=== PATIENT | female | born 1945 | race Caucasian/White ===

== ENCOUNTER 2017-04-20 13:07 | Emergency (ER) | payer MEDICARE ==
--- NOTE | 2017-04-20 13:14 | ERPHSYRPT ---
- History of Present Illness Time Seen by Provider: 04/20/17 13:14 Source: patient Exam Limitations: no limitations Physician History: 71 y/o diabetic female comes to the ER after smashing her right 1st finger on a garage yesterday. Pt arrives with an open wound and flap at the tip of the finger. Pt does not remember the last tetanus shot. Pt only admits to pain with movement. Occurred: yesterday Method of Injury: direct blow Quality: intermittent Severity of Pain-Max: none Severity of Pain-Current: mild Extremities Pain Location: 2nd finger: right Modifying Factors: Improves With: movement Associated Symptoms: none Allergies/Adverse Reactions: codeine [Codeine] Allergy (Severe, Verified 04/20/17 13:21) Penicillins Allergy (Verified 04/20/17 13:21) propoxyphene HCl [From Darvon] Allergy (Verified 04/20/17 13:21) Home Medications: Gabapentin 1,200 mg PO HS 04/20/17 [History] Insulin Glargine [Lantus Insulin] 50 unit SQ DAILY 04/20/17 [History] Hx Tetanus, Diphtheria Vaccination/Date Given: Yes Hx Influenza Vaccination/Date Given: No Hx Pneumococcal Vaccination/Date Given: No Immunizations Up to Date: No - Review of Systems Constitutional: No Fever, No Chills Eyes: No Symptoms Ears, Nose, & Throat: No Symptoms Respiratory: No Cough, No Dyspnea Cardiac: No Chest Pain, No Edema, No Syncope Abdominal/Gastrointestinal: No Abdominal Pain, No Nausea, No Vomiting, No Diarrhea Genitourinary Symptoms: No Dysuria Musculoskeletal: Arthralgias, Joint Redness, No Back Pain, No Neck Pain Skin: No Rash Neurological: No Dizziness, No Focal Weakness, No Sensory Changes Psychological: No Symptoms Endocrine: No Symptoms All Other Systems: Reviewed and Negative - Past Medical History Pertinent Past Medical History: Yes Neurological History: Peripheral Neuropathy ENT History: No Pertinent History Cardiac History: Angina, Arrhythmia, Coronary Artery Disease, Hypertension Respiratory History: No Pertinent History Endocrine Medical History: Diabetes Type II Musculoskeletal History: Arthritis GI Medical History: No Pertinent History History: No Pertinent History Psycho-Social History: No Pertinent History Female Reproductive Disorders: No Pertinent History Other Medical History: afib - Past Surgical History Past Surgical History: Yes Neuro Surgical History: No Pertinent History Cardiac: Cardiac Catheterization, Cardiac Stent Respiratory: No Pertinent History Gastrointestinal: No Pertinent History, Cholecystectomy Genitourinary: No Pertinent History Musculoskeletal: No Pertinent History Female Surgical History: Tubal Ligation Other Surgical History: skin grafts to upper thighs as a child - Social History Smoking Status: Never smoker Exposure to second hand smoke: No Alcohol Use: None Drug Use: none Patient Lives Alone: No Significant Family History: heart disease, diabetes - Female History Hx Now: No - Nursing Vital Signs Nursing Vital Signs: Initial Vital Signs Temperature 97.7 F 04/20/17 13:17 Pulse Rate 75 04/20/17 13:17 Respiratory Rate 18 04/20/17 13:17 Blood Pressure 168/81 04/20/17 13:17 O2 Sat by Pulse Oximetry 98 04/20/17 13:17 Pain Scale Pain Intensity 3 - Physical Exam General Appearance: alert Eyes, Ears, Nose, Throat Exam: moist mucous membranes Neck Exam: non-tender, supple Cardiovascular/Respiratory Exam: chest non-tender, normal breath sounds, regular rate/rhythm, no respiratory distress Abdominal Exam: non-tender, No guarding Back Exam: normal inspection, No vertebral tenderness Hand Exam: bone tenderness, laceration, limited ROM, No normal ROM Neuro/Tendon Exam: normal sensation, normal motor functions Mental Status Exam: alert, oriented x 3, cooperative Skin Exam: normal color, warm, dry Procedures - Laceration/Wound Repair Right Upper Anterior Medial Proximal Dorsal Finger Wound Location: Right, hand Wound Length (cm): 1 Wound's Depth, Shape: superficial Wound Explored: clean Irrigated: Yes Hibiclens Prep: Yes Anesthesia: 1% Lidocaine Volume Anesthetic (ccs): 4 Wound Debrided: minimal Wound Repaired With: sutures Suture Size/Type: 3-0 Number of Sutures: 4 Layer Closure?: Yes Sterile Dressing Applied?: Yes Splint Applied?: No Sling Applied?: No - Course Nursing assessment & vital signs reviewed: Yes Ordered Tests: Active Orders 24 hr Category Date Time Status Prepare for Sutures STAT Care 04/20/17 13:38 Active Sutures STAT Care 04/20/17 13:40 Active Wound Care STAT Care 04/20/17 13:38 Active FINGER(S) Stat Exams 04/20/17 13:36 Taken Medication Summary Discontinued Medications Generic Name Dose Route Start Last Admin Trade Name Freq PRN Reason Stop Dose Admin Bacitracin Confirm 04/20/17 13:41 Baciguent Packet Administered 04/20/17 13:42 Dose 1 gm .ROUTE .STK-[facility] ONE Diphtheria/Tetanus/Acell Pertussis 0.5 ml 04/20/17 13:37 04/20/17 13:43 Adacel Vial IM 04/20/17 13:38 0.5 ml .ONCE ONE Administration Diphtheria/Tetanus/Acell Pertussis Confirm 04/20/17 13:41 Adacel Vial Administered 04/20/17 13:42 Dose 0.5 ml IM .STK-[facility] ONE Lidocaine HCl 5 ml 04/20/17 13:38 04/20/17 13:43 Xylocaine 1% Hcl 20 Ml Mdv IJ 04/20/17 13:39 5 ml STAT ONE Administration Lidocaine HCl Confirm 04/20/17 13:41 Xylocaine 1% Hcl 20 Ml Mdv Administered 04/20/17 13:42 Dose 5 ml .ROUTE .STK-[facility] ONE - Progress Progress: improved Progress Note: 04/20/17 14:27 The x ray of the finger is within normal limits. See Procedure Note for laceration repair. - Departure Time of Disposition: 14:28 Departure Disposition: Home Clinical Impression: Finger laceration Qualifiers: Encounter type: initial encounter Finger: index finger Damage to nail status: without damage Foreign body presence: without foreign body Laterality: right Qualified Code(s): S61.210A - Laceration without foreign body of right index finger without damage to nail, initial encounter Condition: Stable Critical Care Time: No Referrals: WAQAS BOOTH NP [Primary Care Provider] - Instructions: Laceration Repair -- Finger Additional Instructions: Follow up with your primary care doctor to have the sutures removed in 7 days. Prescriptions: Doxycycline Hyclate 100 mg PO BID #14 tablet
[2017-04-20] MEDS ORDERED: Adacel Vial IM ONE ×2 (13:37→13:41)
[2017-04-20] MEDS ORDERED: XYLOCAINE 1% HCL 20 ML MDV IJ ONE (13:38)
[2017-04-20] MEDS ORDERED: BACIGUENT PACKET ONE ×2 (13:41→14:44)
[2017-04-20] MEDS ORDERED: XYLOCAINE 1% HCL 20 ML MDV ONE (13:41)
[2017-04-20] MEDS ORDERED: BACIGUENT PACKET TP ONE (14:35)
[2017-04-20 14:51] VITALS: BP 137/87; PULSE 76; O2SAT 100
--- NOTE | 2017-04-20 15:21 | XRAY ---
Indication: Pain following injury. Comparison: None 3 views of the right second finger demonstrates distal laceration. No other bony, articular, or soft tissue abnormalities.
== END 2017-04-20 14:50 | disposition home or self-care (01) ==
LOC: ED 13:07
PROC: 0HQFXZZ Repair Right Hand Skin, External Approach (ICD-10-PCS; principal; 2017-04-20)
DX: S61.210A Laceration without foreign body of right index finger without damage to nail, initial encounter (principal); W22.8XXA Striking against or struck by other objects, initial encounter
CPT/HCPCS: 12001; 73140; 90471; 90715; 99283; 99284; A9270-GY

== ENCOUNTER 2017-05-30 21:11 | Emergency (ER) | payer MEDICARE ==
--- NOTE | 2017-05-30 22:05 | ERPHSYRPT ---
- History of Present Illness Time Seen by Provider: 05/30/17 21:53 Historian: patient Exam Limitations: no limitations Patient Subjective Stated Complaint: pt states she had diarrhea beginning . states since then she has been vomiting and experiencing abdominal pain in the left lower abdomen. states she also has a headache with pain primarly in the temporal region. pt also reports chills, states she is not able to get warm. Triage Nursing Assessment: pt is AOx3, pupils perrl, transferred to room per ems , resps are easy and non labored, lung sounds are clear and equal throughout all alcocer, radial pulses are strong and equal, skin appears flushed, oral mucosa is dry, bowel sounds are present x4 and hyperactive. 1+ pitting edema noted to bilat lower extremities. pain to the LLQ that is non radiating. pt is shivering during triage. Physician History: The patient is a 71-year-old female with her daughter complaining of intermittent abdominal pain, nausea, vomiting, and diarrhea for one month. She was seen at [facility] the ER this morning with the same complaint. She states they did blood work and a CT scan of the abdomen. She states everything was normal. She saw her local doctor last week who told her the problem was that her blood sugar was too high. He gave her new medicine for her diabetes. She says her new diabetic medicine is not working. She will have 3 days in a row without any abdominal pain, vomiting, or diarrhea. She has a past medical history of diverticulitis, pyelonephritis, coronary artery disease, diabetes, A. fib, TIA, cholecystectomy, tubal ligation, and abdominal skin graft. Timing/Duration: other (1 month) Activities at Onset: none Quality: sharpness Abdominal Pain Onset Location: generalized abdomen Pain Radiation: no radiation Severity of Pain-Max: moderate Severity of Pain-Current: moderate Modifying Factors: Improves With: vomiting Associated Symptoms: diarrhea, nausea, vomiting Previous symptoms: same symptoms as today, recently seen, recently treated Allergies/Adverse Reactions: codeine [Codeine] Allergy (Severe, Verified 05/30/17 21:29) Penicillins Allergy (Verified 05/30/17 21:29) propoxyphene HCl [From Darvon] Allergy (Verified 05/30/17 21:29) Home Medications: Gabapentin 1,200 mg PO HS 04/20/17 [History] Insulin Glargine [Lantus Insulin] 50 unit SQ DAILY 04/20/17 [History] Hx Tetanus, Diphtheria Vaccination/Date Given: Yes Hx Influenza Vaccination/Date Given: No Hx Pneumococcal Vaccination/Date Given: No Immunizations Up to Date: Yes - Review of Systems Constitutional: No Fever, No Chills Eyes: No Symptoms Ears, Nose, & Throat: No Symptoms Respiratory: No Cough, No Dyspnea Cardiac: No Chest Pain, No Edema, No Syncope Abdominal/Gastrointestinal: Abdominal Pain, Nausea, Vomiting, Diarrhea Genitourinary Symptoms: No Dysuria Musculoskeletal: No Back Pain, No Neck Pain Skin: No Rash Neurological: No Dizziness, No Focal Weakness, No Sensory Changes Psychological: No Symptoms Endocrine: No Symptoms Hematologic/Lymphatic: No Symptoms Immunological/Allergic: No Symptoms All Other Systems: Reviewed and Negative - Past Medical History Pertinent Past Medical History: Yes Neurological History: Peripheral Neuropathy ENT History: No Pertinent History Cardiac History: Angina, Arrhythmia, Coronary Artery Disease, Hypertension Respiratory History: No Pertinent History Endocrine Medical History: Diabetes Type II Musculoskeletal History: Arthritis GI Medical History: No Pertinent History History: No Pertinent History Psycho-Social History: No Pertinent History Female Reproductive Disorders: No Pertinent History Other Medical History: afib - Past Surgical History Past Surgical History: Yes Neuro Surgical History: No Pertinent History Cardiac: Cardiac Catheterization, Cardiac Stent Respiratory: No Pertinent History Gastrointestinal: No Pertinent History, Cholecystectomy Genitourinary: No Pertinent History Musculoskeletal: No Pertinent History Female Surgical History: Tubal Ligation Other Surgical History: skin grafts to upper thighs as a child - Social History Smoking Status: Never smoker Exposure to second hand smoke: No Alcohol Use: None Drug Use: none Patient Lives Alone: No Significant Family History: heart disease, diabetes - Female History Hx Now: No - Nursing Vital Signs Nursing Vital Signs: Initial Vital Signs Temperature 100.3 F 05/30/17 21:17 Pulse Rate 75 05/30/17 21:17 Respiratory Rate 20 05/30/17 21:17 Blood Pressure 209/83 05/30/17 21:17 O2 Sat by Pulse Oximetry 98 05/30/17 21:17 Pain Scale Pain Intensity 0 - Physical Exam General Appearance: anxiety Eye Exam: PERRL/EOMI, eyes nml inspection Ears, Nose, Throat Exam: normal ENT inspection Neck Exam: normal inspection, non-tender, supple, full range of motion Respiratory Exam: normal breath sounds, lungs clear, No respiratory distress Cardiovascular Exam: regular rate/rhythm, normal heart sounds Gastrointestinal/Abdomen Exam: other (hyperactive) Pelvic Exam: not done Rectal Exam: not done Back Exam: normal inspection, normal range of motion, No CVA tenderness, No vertebral tenderness Extremity Exam: normal inspection, normal range of motion, pelvis stable Neurologic Exam: alert, oriented x 3, cooperative, normal mood/affect, nml cerebellar function, sensation nml, No motor deficits Skin Exam: normal color, warm, dry SpO2 Interpretation: normal SpO2: 98 Oxygen Delivery: Room Air - Radiology Exams Abdomen X-ray Interpretation: Interpreted by me, Negative (neg single view chest. neg, nonobstructed abd.) Ordered Tests: Active Orders 24 hr Category Date Time Status IV Insertion STAT Care 05/30/17 22:14 Active Rectal Temperature STAT Care 05/30/17 23:17 Active cath [Cath for Specimen-Straight] STAT Care 05/30/17 23:14 Active OBSTR/ACUTE ABDOMEN SERIES Stat Exams 05/30/17 22:15 Taken CBC W DIFF Stat Lab 05/30/17 22:15 Completed CMP Stat Lab 05/30/17 22:15 Completed CULTURE,URINE Stat Lab 05/30/17 22:40 Received LIPASE Stat Lab 05/30/17 22:15 Completed Lactic Acid Stat Lab 05/30/17 Completed Manual Differential NC Stat Lab 05/30/17 22:15 Completed TROPONIN Q3H Lab 05/30/17 22:15 Completed TROPONIN Q3H Lab 05/31/17 01:15 Ordered TROPONIN Q3H Lab 05/31/17 04:15 Ordered TROPONIN Q3H Lab 05/31/17 07:15 Ordered TROPONIN Q3H Lab 05/31/17 10:15 Ordered UA W/ MICROSCOPIC Stat Lab 05/30/17 22:40 Completed Urine Triage Profile Stat Lab 05/30/17 22:40 Completed Medication Summary Discontinued Medications Generic Name Dose Route Start Last Admin Trade Name Freq PRN Reason Stop Dose Admin Famotidine 20 mg 05/30/17 22:14 05/30/17 22:30 Pepcid 20 Mg Vial IV 05/30/17 22:15 20 mg STAT ONE Administration Famotidine Confirm 05/30/17 22:27 Pepcid 20 Mg Vial Administered 05/30/17 22:28 Dose 20 mg IV .STK-[facility] ONE Sodium Chloride 500 mls @ 999 mls/hr 05/30/17 22:14 05/30/17 22:28 Sodium Chloride 0.9% 1000 Ml IV 05/30/17 22:44 999 mls/hr .Q31M STA Administration Sodium Chloride Confirm 05/30/17 22:27 Sodium Chloride 0.9% 1000 Ml Administered 05/30/17 22:28 Dose 1,000 mls @ ud .ROUTE .ST-[facility] ONE Insulin Human Regular 10 unit 05/30/17 22:17 05/30/17 22:54 Novolin R SQ 05/30/17 22:18 Not Given STAT ONE Insulin Human Regular Confirm 05/30/17 22:27 Novolin R Administered 05/30/17 22:28 Dose 10 unit .ROUTE .STK-[facility] ONE Insulin Human Regular Confirm 05/30/17 22:51 Novolin R Administered 05/30/17 22:52 Dose 10 unit .ROUTE .[facility] ONE Insulin Human Regular 10 unit 05/30/17 22:52 05/30/17 22:56 Novolin R IV 05/30/17 22:53 10 unit STAT ONE Administration Ketorolac Tromethamine 30 mg 05/30/17 22:14 05/30/17 22:31 Toradol 30 Mg Injection IV 05/30/17 22:15 30 mg STAT ONE Administration Ketorolac Tromethamine Confirm 05/30/17 22:23 Toradol 30 Mg Injection Administered 05/30/17 22:24 Dose 30 mg .ROUTE .[facility] ONE Ondansetron HCl 4 mg 05/30/17 22:14 05/30/17 22:30 Zofran 4 Mg/2 Ml Vial IV 05/30/17 22:15 4 mg STAT ONE Administration Ondansetron HCl Confirm 05/30/17 22:23 Zofran 4 Mg/2 Ml Vial Administered 05/30/17 22:24 Dose 4 mg .ROUTE .[facility] ONE Lab/Rad Data: Laboratory Result Diagrams 05/30/17 22:15 05/30/17 22:15 Laboratory Results 05/30/17 05/30/17 05/30/17 Range/Units Unknown 23:00 22:40 WBC (4.0-10.5) K/mm3 RBC (4.1-5.4) M/mm3 Hgb (12.0-16.0) gm/dl Hct (35-47) % MCV (78-100) fl MCH (26-32) pg MCHC (32-36) g/dl RDW (11.5-14.0) % Plt Count (150-450) K/mm3 MPV (6-9.5) fl Segmented Neutrophils (36.0-66.0) % Lymphocytes (Manual) (24-44) % Monocytes (Manual) (0.0-12.0) % Eosinophils (Manual) (0.00-3.0) % Differential Comment Platelet Estimate (NORMAL) Anisocytosis Sodium (136-145) mEq/L Potassium (3.5-5.1) mEq/L Chloride (98-107) mEq/L Carbon Dioxide (21-32) mEq/L Anion Gap (5-15) MEQ/L BUN (9-20) mg/dL Creatinine (0.55-1.30) mg/dl Estimated GFR ML/MIN Glucose (70-110) MG/DL Lactic Acid 1.5 (0.4-2.0) Calcium (8.5-10.1) mg/dL Total Bilirubin (0.2-1.0) mg/dL AST (15-37) U/L ALT (12-78) U/L Alkaline Phosphatase (46-116) U/L Troponin I (0.000-0.056) ng/ml Serum Total Protein (6.4-8.2) gm/dL Albumin (3.4-5.0) g/dL Lipase (73-393) U/L Ur Collection Type Urine Color (YELLOW) Urine Appearance (CLEAR) Urine pH (5-6) Ur Specific [place] (1.005-1.025) Urine Protein (Negative) Urine Ketones (NEGATIVE) Urine Blood (0-5) Keny/ul Urine Nitrite (NEGATIVE) Urine Bilirubin (NEGATIVE) Urine Urobilinogen (0-1) mg/dL Ur Leukocyte Esterase (NEGATIVE) Urine Microscopic RBC (0-2) /HPF Urine Microscopic WBC (0-5) /HPF Ur Epithelial Cells (FEW) /HPF Urine Bacteria (NEGATIVE) /HPF Hyaline Casts (0-2) /LPF Granular Casts (NEGATIVE) /LPF Urine Glucose (NEGATIVE) mg/dL Urine Opiates Level NEG. (NEGATIVE) Ur Methadone NEG. (NEGATIVE) Urine Barbiturates NEG. (NEGATIVE) Ur Phencyclidine (PCP) NEG. (NEGATIVE) Urine Amphetamine NEG. (NEGATIVE) U Benzodiazepine Level NEG. (NEGATIVE) Urine Cocaine NEG. (NEGATIVE) Urine Marijuana (THC) NEG. (NEGATIVE) Influenza Type A Ag NEGATIVE (NEGATIVE) Influenza Type B Ag NEGATIVE (NEGATIVE) RSV (PCR) NEGATIVE (Negative) Specimen Received 05/30/17 05/30/17 05/30/17 Range/Units 22:40 22:15 22:15 WBC (4.0-10.5) K/mm3 RBC (4.1-5.4) M/mm3 Hgb (12.0-16.0) gm/dl Hct (35-47) % MCV (78-100) fl MCH (26-32) pg MCHC (32-36) g/dl RDW (11.5-14.0) % Plt Count (150-450) K/mm3 MPV (6-9.5) fl Segmented Neutrophils (36.0-66.0) % Lymphocytes (Manual) (24-44) % Monocytes (Manual) (0.0-12.0) % Eosinophils (Manual) (0.00-3.0) % Differential Comment Platelet Estimate (NORMAL) Anisocytosis Sodium 139 (136-145) mEq/L Potassium 4.3 (3.5-5.1) mEq/L Chloride 107 (98-107) mEq/L Carbon Dioxide 24.8 (21-32) mEq/L Anion Gap 11.6 (5-15) MEQ/L BUN 17 (9-20) mg/dL Creatinine 1.21 (0.55-1.30) mg/dl Estimated GFR 47 ML/MIN Glucose 341 H (70-110) MG/DL Lactic Acid (0.4-2.0) Calcium 8.3 L (8.5-10.1) mg/dL Total Bilirubin 0.20 (0.2-1.0) mg/dL AST 13 L (15-37) U/L ALT 16 (12-78) U/L Alkaline Phosphatase 72 (46-116) U/L Troponin I < 0.017 (0.000-0.056) ng/ml Serum Total Protein 5.0 L (6.4-8.2) gm/dL Albumin 1.8 L (3.4-5.0) g/dL Lipase 77 (73-393) U/L Ur Collection Type CATH Urine Color YELLOW (YELLOW) Urine Appearance CLEAR (CLEAR) Urine pH 5.0 (5-6) Ur Specific [place] 1.015 (1.005-1.025) Urine Protein 300 (Negative) Urine Ketones NEGATIVE (NEGATIVE) Urine Blood 250 (0-5) Keny/ul Urine Nitrite NEGATIVE (NEGATIVE) Urine Bilirubin NEGATIVE (NEGATIVE) Urine Urobilinogen NORMAL (0-1) mg/dL Ur Leukocyte Esterase NEGATIVE (NEGATIVE) Urine Microscopic RBC 5-10 (0-2) /HPF Urine Microscopic WBC 2-5 (0-5) /HPF Ur Epithelial Cells FEW (FEW) /HPF Urine Bacteria FEW (NEGATIVE) /HPF Hyaline Casts 2-5 (0-2) /LPF Granular Casts 2-5 (NEGATIVE) /LPF Urine Glucose 1000 (NEGATIVE) mg/dL Urine Opiates Level (NEGATIVE) Ur Methadone (NEGATIVE) Urine Barbiturates (NEGATIVE) Ur Phencyclidine (PCP) (NEGATIVE) Urine Amphetamine (NEGATIVE) U Benzodiazepine Level (NEGATIVE) Urine Cocaine (NEGATIVE) Urine Marijuana (THC) (NEGATIVE) Influenza Type A Ag (NEGATIVE) Influenza Type B Ag (NEGATIVE) RSV (PCR) (Negative) Specimen Received 05/30/17 2240 05/30/17 Range/Units 22:15 WBC 8.5 (4.0-10.5) K/mm3 RBC 5.03 (4.1-5.4) M/mm3 Hgb 12.2 (12.0-16.0) gm/dl Hct 37.6 (35-47) % MCV 74.8 L (78-100) fl MCH 24.3 L (26-32) pg MCHC 32.4 (32-36) g/dl RDW 14.9 H (11.5-14.0) % Plt Count 102 L (150-450) K/mm3 MPV 13.9 H (6-9.5) fl Segmented Neutrophils 88 H (36.0-66.0) % Lymphocytes (Manual) 6 L (24-44) % Monocytes (Manual) 5 (0.0-12.0) % Eosinophils (Manual) 1 (0.00-3.0) % Differential Comment ABNORMAL Platelet Estimate DECREASED (NORMAL) Anisocytosis 1+ Sodium (136-145) mEq/L Potassium (3.5-5.1) mEq/L Chloride (98-107) mEq/L Carbon Dioxide (21-32) mEq/L Anion Gap (5-15) MEQ/L BUN (9-20) mg/dL Creatinine (0.55-1.30) mg/dl Estimated GFR ML/MIN Glucose (70-110) MG/DL Lactic Acid (0.4-2.0) Calcium (8.5-10.1) mg/dL Total Bilirubin (0.2-1.0) mg/dL AST (15-37) U/L ALT (12-78) U/L Alkaline Phosphatase (46-116) U/L Troponin I (0.000-0.056) ng/ml Serum Total Protein (6.4-8.2) gm/dL Albumin (3.4-5.0) g/dL Lipase (73-393) U/L Ur Collection Type Urine Color (YELLOW) Urine Appearance (CLEAR) Urine pH (5-6) Ur Specific [place] (1.005-1.025) Urine Protein (Negative) Urine Ketones (NEGATIVE) Urine Blood (0-5) Keny/ul Urine Nitrite (NEGATIVE) Urine Bilirubin (NEGATIVE) Urine Urobilinogen (0-1) mg/dL Ur Leukocyte Esterase (NEGATIVE) Urine Microscopic RBC (0-2) /HPF Urine Microscopic WBC (0-5) /HPF Ur Epithelial Cells (FEW) /HPF Urine Bacteria (NEGATIVE) /HPF Hyaline Casts (0-2) /LPF Granular Casts (NEGATIVE) /LPF Urine Glucose (NEGATIVE) mg/dL Urine Opiates Level (NEGATIVE) Ur Methadone (NEGATIVE) Urine Barbiturates (NEGATIVE) Ur Phencyclidine (PCP) (NEGATIVE) Urine Amphetamine (NEGATIVE) U Benzodiazepine Level (NEGATIVE) Urine Cocaine (NEGATIVE) Urine Marijuana (THC) (NEGATIVE) Influenza Type A Ag (NEGATIVE) Influenza Type B Ag (NEGATIVE) RSV (PCR) (Negative) Specimen Received - Progress Progress: improved Progress Note: 05/30/17 22:18 I reviewed the records from her visit to [facility] emergency room that occurred this morning. The CT scan of the abdomen and pelvis showed splenomegaly but no acute abnormalities. The indication for her abd/pelvis CT was for abd pain for 4 months. Her white count was normal at 8.0 her hemoglobin was 12.7. Her glucose is 385 for which she was given 10 units of regular insulin. Her lipase was normal. A urinalysis was ordered but not performed. 05/31/17 00:15 Counseled pt/family regarding: lab results, diagnosis, need for follow-up, rad results - Departure Time of Disposition: 00:24 Departure Disposition: Home Clinical Impression: Abdominal pain, Elevated random blood glucose level Condition: Stable Critical Care Time: No Referrals: WAQAS BOOTH NP [Primary Care Provider] - Additional Instructions: You have have abdominal pain and elevated blood glucose levels. You were given famotidine 20 mg, Toradol 30 mg, and fluids by IV. You were also given regular insulin 10 units by IV. Your blood glucose was 341 before the fluids and insulin. After the medication your blood glucose was 131. Follow-up in the morning with your primary care physician. As we had discussed, please have a routine colonoscopy.
[2017-05-30] MEDS ORDERED: Pepcid 20 MG VIAL IV ONE ×2 (22:14→22:27)
[2017-05-30] MEDS ORDERED: TORAdol 30 mg Injection IV ONE (22:14)
[2017-05-30] MEDS ORDERED: Zofran 4 MG/2 ML VIAL IV ONE (22:14)
[2017-05-30 22:21] LABS: Mean Cell Volume 74.8 fl (78-100); Mean Corpuscular Hemoglobin 24.3 pg (26-32); Mean Platelet Volume 13.9 fl (6-9.5); Platelet Count 102 K/mm3 (150-450); Red Blood Count 5.03 M/mm3 (4.1-5.4); Red Cell Distribution Width 14.9 % (11.5-14.0); White Blood Count 8.5 K/mm3 (4.0-10.5)
[2017-05-30] MEDS ORDERED: TORAdol 30 mg Injection ONE (22:23)
[2017-05-30] MEDS ORDERED: Zofran 4 MG/2 ML VIAL ONE (22:23)
[2017-05-30] MEDS: NovoLIN R SQ ONE ×2 (22:26→22:54)
[2017-05-30] MEDS ORDERED: NovoLIN R ONE ×2 (22:27→22:51)
[2017-05-30] MEDS ORDERED: Sodium Chloride 0.9% 1000 ML 1,000 ML ONE (22:27)
[2017-05-30 22:39] LABS: ALBUMIN 1.8 g/dL (3.4-5.0); ANION GAP 11.6 MEQ/L (5-15); BILIRUBIN,TOTAL 0.2 mg/dL (0.2-1.0); Carbon Dioxide 24.8 mEq/L (21-32); Potassium 4.3 mEq/L (3.5-5.1)
[2017-05-30] MEDS ORDERED: NovoLIN R IV ONE (22:52)
[2017-05-30 23:08] LABS: Bilirubin NEGATIVE (NEGATIVE); Blood 250 Ery/ul (0-5); COMPLETE URINE MICROSCOPIC? YES; Collection Type CATH; Glucose 1000 mg/dL (NEGATIVE); Leukocyte Esterase NEGATIVE (NEGATIVE)
[2017-05-30 23:09] LABS: ADD URINE CULTURE? YES (NO); Bacteria FEW /HPF (NEGATIVE); Epithelial Cells FEW /HPF (FEW)
[2017-05-31 00:11] VITALS: O2SAT 98
[2017-05-31 00:12] LABS: Eosinophil 1 % (0.00-3.0); Total Cells Counted 100
[2017-05-31 00:13] LABS: ANISOCYTOSIS 1+; Platelet Estimate DECREASED (NORMAL)
[2017-05-31 00:37] VITALS: BP 179/85; PULSE 68
--- NOTE | 2017-05-31 08:48 | XRAY ---
Indication: Abdomen pain, nausea, vomiting, and diarrhea. Comparison: Portable chest March 12, 2016. 2 views of the abdomen nonacute and nonobstructed with mild scattered colonic fecal debris throughout, scattered vascular calcifications, and previous cholecystectomy. Remaining solid organs unremarkable. Osseous structures intact with moderate degenerative changes throughout the spine and dextroscoliosis. Single PA chest again demonstrates normal heart and lungs. Bony thorax intact with stable degenerative changes. Impression: Nonacute abdomen with chronic features. Stable nonacute 1 view chest.
== END 2017-05-31 00:37 | disposition home or self-care (01) ==
LOC: ED 21:11
DX: R10.9 Unspecified abdominal pain (principal); R73.9 Hyperglycemia, unspecified; R11.2 Nausea with vomiting, unspecified; R19.7 Diarrhea, unspecified; Z79.4 Long term (current) use of insulin; E11.9 Type 2 diabetes mellitus without complications
CPT/HCPCS: 96374 ×2; 99284; 82962; 96360; 96375; 81000; 36415; 83690; 80307; 85025; 80053; 84484; 87086; 87631; 74022; 83605; P9612; J1885; J2405; A9270-GY

== ENCOUNTER 2017-06-10 13:36 | Inpatient (IN) | payer MEDICARE ==
[2017-06-10] MEDS ORDERED: FEVERALL 650 MG PR PRN (20:17)
[2017-06-10] MEDS ORDERED: Sodium Chloride 0.9% 1000 ML 1,000 ML IV STA (20:17)
[2017-06-10] MEDS: TYLENOL 325 MG PO PRN (20:58)
[2017-06-10] MEDS: Zofran 4 MG/2 ML VIAL IV PRN (20:58)
[2017-06-10 21:58] LABS: Mean Corpuscular Hemoglobin 24.2 pg (26-32); Mean Platelet Volume 11.9 fl (6-9.5); Platelet Count 151 K/mm3 (150-450); Red Blood Count 4.58 M/mm3 (4.1-5.4); Red Cell Distribution Width 14.6 % (11.5-14.0); White Blood Count 8.6 K/mm3 (4.0-10.5)
[2017-06-10] MEDS ORDERED: MORPHINE SULFATE 2 MG INJ IV PRN (22:08)
[2017-06-10] MEDS: Sodium Chloride 0.9% 1000 ML 1,000 ML IV SCH (22:12)
[2017-06-10] MEDS ORDERED: Bystolic 5 MG ONE (22:18)
[2017-06-10] MEDS: Lotensin 10 MG PO SCH (22:20)
[2017-06-10] MEDS: Bystolic 5 MG PO SCH ×2 (22:21)
[2017-06-10 22:23] LABS: Bacteria RARE /HPF (NEGATIVE); Bilirubin NEGATIVE (NEGATIVE); Blood 50 Ery/ul (0-5); COMPLETE URINE MICROSCOPIC? YES; Collection Type CLEAN CATCH; Epithelial Cells RARE /HPF (FEW); Glucose 1000 mg/dL (NEGATIVE); Leukocyte Esterase NEGATIVE (NEGATIVE); Mucus MANY /HPF (NEGATIVE)
[2017-06-10 22:33] LABS: ALBUMIN 1.5 g/dL (3.4-5.0); ANION GAP 8.7 MEQ/L (5-15); BILIRUBIN,TOTAL 0.2 mg/dL (0.2-1.0); Carbon Dioxide 26.9 mEq/L (21-32); Potassium 3.2 mEq/L (3.5-5.1); Total Protein 4.7 gm/dL (6.4-8.2)
[2017-06-10] MEDS: NovoLOG Insulin SQ PRN (22:43)
[2017-06-10 23:51] LABS: Eosinophil 1 % (0.00-3.0); Platelet Estimate NORMAL (NORMAL); Total Cells Counted 100
[2017-06-11] MEDS ORDERED: Catapres 0.1 MG PO ONE (01:48)
[2017-06-11] MEDS: NovoLOG Insulin SQ PRN ×3 (07:46→21:38)
[2017-06-11] MEDS: Catapres 0.1 MG PO PRN ×2 (07:46→17:21)
--- NOTE | 2017-06-11 08:32 | XRAY ---
Indication: Weakness. Comparison: May 30, 2017. PA/lateral chest demonstrates new blunting of both costophrenic angles favoring tiny effusions. Remaining lungs clear. Heart is not enlarged. Vascularity normal. Bony thorax intact again with mild degenerative changes. Impression: New tiny bibasilar effusions. Negative for acute pneumonic process or CHF. Comment: Preliminary interpretation was made by C. Effusions not reported and not a critical finding.
[2017-06-11] MEDS ORDERED: ULTRAM 50 MG PO PRN (09:38)
[2017-06-11] MEDS: Protonix 40MG Tablet PO SCH ×2 (09:52→21:33)
[2017-06-11] MEDS: Bystolic 5 MG PO SCH (09:52)
[2017-06-11] MEDS: Lotensin 10 MG PO SCH (09:52)
[2017-06-11] MEDS: Lantus Insulin SQ SCH (09:53)
[2017-06-11] MEDS: ENOXAPARIN SODIUM SQ SCH (09:53)
[2017-06-11] MEDS ORDERED: NON-FORMULARY ITEM (Omeprazole [Prilosec] 20 MG) PO SCH (10:00)
--- NOTE | 2017-06-11 10:39 | XRAY ---
Indication: Poor renal output. Renal insufficiency. Two-dimensional renal sonogram performed. Comparison: None Both kidneys normal in reniform shape with normal color perfusion. Right kidney measures 11.3 x 4.4 x 5.4 cm and left measures 11.7 x 5.7 x 5.4 cm. No renal mass, hydronephrosis, or perinephric fluid. Cortical medullary differentiation preserved without cortical thinning. Images of the urinary bladder unremarkable with a volume of 254 cc. Impression: Negative renal sonogram.
--- NOTE | 2017-06-11 12:22 | XRAY ---
Indication: Abdominal pain. Multiple contiguous axial images obtained through the abdomen and pelvis without contrast as ordered. Comparison: Contrast exam May 04, 2015. Lung bases demonstrate new small bibasilar dependent effusions with compressive atelectasis. Heart is not enlarged. There is now mild anasarca. Noncontrasted stomach and bowel loops appear nonobstructed. Normal appendix. Again scattered colonic diverticulosis without diverticulitis. There is now tiny bilateral colic gutter and pelvic free fluid. No free air. Again previous cholecystectomy. Remaining liver, pancreas, spleen, adrenal glands, kidneys, ureters, bladder, and uterus appear unremarkable for noncontrast exam. There remains mild aortoiliac calcifications without AAA. Osseous structures intact again with mild degenerative changes throughout the spine. Impression: 1. New small bibasilar effusions/atelectasis without cardiomegaly. 2. New tiny indeterminate abdominal/pelvic free fluid and mild anasarca. 3. Stable colonic diverticulosis. 4. Remaining CT abdomen/pelvis without contrast exam is negative. CTDI 17.07
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
--- NOTE | 2017-06-11 12:27 | PCM.NOTE ---
Date and Time: 06/11/17 1226 Subjective Assessment: c/o abdominal pain, BP is running high - Review of Systems Constitutional: No Fever, No Chills Eyes: No Symptoms Ears, Nose, & Throat: No Symptoms Respiratory: No Cough, No Short Of Breath Cardiac: No Chest Pain, No Edema, No Syncope Abdominal/Gastrointestinal: Abdominal Pain, No Nausea, No Vomiting, No Diarrhea Genitourinary Symptoms: No Dysuria Musculoskeletal: Back Pain, No Neck Pain Skin: No Rash Neurological: No Dizziness, No Focal Weakness, No Sensory Changes Psychological: No Symptoms Endocrine: No Symptoms Hematologic/Lymphatic: No Symptoms Immunological/Allergic: No Symptoms Objective Exam General Appearance: no apparent distress, alert Neurologic Exam: alert, oriented x 3, cooperative, normal mood/affect, nml cerebellar function, sensation nml, No motor deficits Skin Exam: normal color, warm, dry Eye Exam: PERRL, EOMI, eyes nml inspection Ears, Nose, Throat Exam: normal ENT inspection, pharynx normal, moist mucous membranes Neck Exam: normal inspection, non-tender, supple, full range of motion Respiratory Exam: normal breath sounds, lungs clear, No respiratory distress Cardiovascular Exam: regular rate/rhythm, normal heart sounds Gastrointestinal/Abdomen Exam: soft, No tenderness, No mass Extremity Exam: normal inspection, normal range of motion Back Exam: normal inspection, normal range of motion, No CVA tenderness, No vertebral tenderness Pelvic Exam: deferred Rectal Exam: deferred OBJECTIVE DATA Vital Signs: Vital Signs - 24 hr Temp Pulse Resp BP Pulse Ox 06/11/17 09:33 48 L 158/70 06/11/17 07:22 97.9 F 52 L 18 190/76 95 06/11/17 04:19 94 L 06/11/17 04:10 98.0 F 51 L 14 162/76 94 L 06/10/17 23:45 97.6 F 65 18 222/90 95 06/10/17 20:09 98.2 F 75 20 222/100 98 06/10/17 20:00 98.2 F 75 20 222/100 98 Oxygen-Last 24 hours O2 Percentage 2 Liters = 28% O2 Percentage 2 Liters = 28% Oxygen Flowrate (L/min)-RT 2 Pain Assessment - Last Documented Pain Intensity 0 Pain Scale Used 0-10 Pain Scale Intake and Output: Intake & Output 0906/10/17 06/11/17 06/12/17 11:59 11:59 11:59 11:59 Intake Total 2058 Output Total 300 Balance 1758 Weight 76.657 kg Lab Results: Accuchecks Date 06/11/1706/11/1706/10/17 Time 11:48 Time 07:30 Time 21:30 Accucheck Value: 175 Accucheck Value: 277 Accucheck Value: 283 Lab Results-Last 24 Hours 06/10/17 06/10/17 06/10/17 Range/Units 21:40 21:50 21:50 WBC 8.6 (4.0-10.5) K/mm3 RBC 4.58 (4.1-5.4) M/mm3 Hgb 11.1 L (12.0-16.0) gm/dl Hct 33.9 L (35-47) % MCV 74.0 L (78-100) fl MCH 24.2 L (26-32) pg MCHC 32.7 (32-36) g/dl RDW 14.6 H (11.5-14.0) % Plt Count 151 (150-450) K/mm3 MPV 11.9 H (6-9.5) fl Segmented Neutrophils 72 H (36.0-66.0) % Lymphocytes (Manual) 20 L (24-44) % Monocytes (Manual) 7 (0.0-12.0) % Eosinophils (Manual) 1 (0.00-3.0) % Differential Comment NORMAL Platelet Estimate NORMAL (NORMAL) Sodium 142 (136-145) mEq/L Potassium 3.2 L (3.5-5.1) mEq/L Chloride 110 H (98-107) mEq/L Carbon Dioxide 26.9 (21-32) mEq/L Anion Gap 8.7 (5-15) MEQ/L BUN 11 (9-20) mg/dL Creatinine 1.22 (0.55-1.30) mg/dl Estimated GFR 46 ML/MIN Glucose 307 H (70-110) MG/DL Calcium 8.1 L (8.5-10.1) mg/dL Total Bilirubin 0.20 (0.2-1.0) mg/dL AST 17 (15-37) U/L ALT 9 L (12-78) U/L Alkaline Phosphatase 68 (46-116) U/L NT-Pro-B Natriuret Pep 2194 H (0-125) pg/ml Serum Total Protein 4.7 L (6.4-8.2) gm/dL Albumin 1.5 L (3.4-5.0) g/dL Ur Collection Type CLEAN CATCH Urine Color YELLOW (YELLOW) Urine Appearance CLEAR (CLEAR) Urine pH 6.0 (5-6) Ur Specific [place] 410 (1.005-1.025) Urine Protein 500 (Negative) Urine Ketones NEGATIVE (NEGATIVE) Urine Blood 50 (0-5) Keny/ul Urine Nitrite NEGATIVE (NEGATIVE) Urine Bilirubin NEGATIVE (NEGATIVE) Urine Urobilinogen NORMAL (0-1) mg/dL Ur Leukocyte Esterase NEGATIVE (NEGATIVE) Urine Microscopic RBC 0-2 (0-2) /HPF Ur Epithelial Cells RARE (FEW) /HPF Urine Bacteria RARE (NEGATIVE) /HPF Urine Mucus MANY (NEGATIVE) /HPF Urine Glucose 1000 (NEGATIVE) mg/dL Specimen Received 06/10/17:2200 Radiology Exams: Radiology Procedures Category Date Time Status ABDOMEN AND PELVIS W/0 CONTRAS [CT] Urgent Exams 06/11/17 09:06 Completed CHEST 2 VIEWS (PA AND LAT) Stat Exams 06/10/17 Completed KIDNEY [US] Urgent Exams 06/11/17 Completed ABDOMEN AND PELVIS W/0 CONTRAS [CTImpression: 1. New small bibasilar effusions/atelectasis without cardiomegaly. 2. New tiny indeterminate abdominal/pelvic free fluid and mild anasarca. 3. Stable colonic diverticulosis. 4. Remaining CT abdomen/pelvis without contrast exam is negative Procedures: [id number] US/KIDNEY Indication: Poor renal output. Renal insufficiency. Two-dimensional renal sonogram performed. Comparison: None Both kidneys normal in reniform shape with normal color perfusion. Right kidney measures 11.3 x 4.4 x 5.4 cm and left measures 11.7 x 5.7 x 5.4 cm. No renal mass, hydronephrosis, or perinephric fluid. Cortical medullary differentiation preserved without cortical thinning. Images of the urinary bladder unremarkable with a volume of 254 cc. Impression: Negative renal sonogram. Multi-Disciplinary Progress Notes: Multi-Disciplinary Progress Notes 06/11/17 09:43 Case Management Note by Caroline Monzon ATTEMPTED TO REACH ADRYAN HARP, PT'S DAUGHTER, AND APPOINTED LAY CAREGIVER. [phone]. [facility] VOICEMAIL MESSAGE TO CALL THIS ANALYTICAL MANAGER TO DISCUSS DISCHARGE PLANNING. Initialized on 06/11/17 09:43 - END OF NOTE Assessment/Plan (1) Dehydration Current Visit: Yes Status: Acute Code(s): E86.0 - DEHYDRATION (2) Nausea & vomiting Current Visit: Yes Status: Acute Qualifiers: Vomiting type: unspecified Code(s): R11.2 - NAUSEA WITH VOMITING, UNSPECIFIED (3) Uncontrolled hypertension Current Visit: Yes Status: Acute Code(s): I10 - ESSENTIAL (PRIMARY) HYPERTENSION (4) Renal insufficiency Current Visit: Yes Status: Acute (5) Uncontrolled diabetes mellitus Current Visit: Yes Status: Acute Qualifiers: Diabetes mellitus type: type 2 Diabetes mellitus complication status: with hyperglycemia Diabetes mellitus producer assistant insulin use: with longterm use Qualified Code(s): E11.65 - Type 2 diabetes mellitus with hyperglycemia; Z79.4 - relay mechanic (current) use of insulin Code(s): E11.65 - TYPE 2 DIABETES MELLITUS WITH HYPERGLYCEMIA
[2017-06-11] MEDS ORDERED: Lasix 40 MG/4 ML IV ONE (13:45)
[2017-06-11] MEDS ORDERED: Lotensin 10 MG PO SCH (14:00)
[2017-06-11] MEDS ORDERED: Potassium Chloride 40 MEQ/20 ML VIAL 40 MEQ, Magnesium Sulfate 1 GM/2 ML VIAL*** 1 GM i... IV SCH ×3 (14:00)
[2017-06-11] MEDS: hydroDIURIL 25 MG PO SCH (14:22)
[2017-06-11] MEDS: Klor Con 10 MEQ PO SCH ×2 (14:22→21:32)
--- NOTE | 2017-06-11 15:06 | CONS ---
CONSULT DATE: 06/11/2017 REASON FOR CONSULT: 1) Evaluation of renal function. 2) Evaluation of blood pressure. HISTORY: Miss Ana Luisa Abarca is a very pleasant 71 year-old lady who was admitted for chief complaint of nausea, vomiting and uncontrolled diabetes. During the course of hospitalization the patient was noted to have blood pressure which was around 160-190 systolic. Also the patient's UA showed 500 mg of protein. Her diabetes is uncontrolled. Her blood pressure has been uncontrolled. She has never been told about kidney disease. Creatinine was 1.2. Estimated glomerular filtration rate was around 40 to 45 ml/minute. Underlying diabetic nephropathy was suspected. A renal consultation was called for evaluation of above mentioned issues. REVIEW OF SYSTEMS: The patient states that she has some leg swelling. Her nausea and vomiting has improved. Oral intake is better. Denies any visual problems at this time. Denies any known history of diabetic retinopathy. Denies any recurrent urinary tract infections. No kidney stones. No chest pain. No abdominal pain. No fall, trauma, focal weaknesses. Denies any chronic use of nonsteroidals. All systems were reviewed pertinent mentioned here and the rest were negative. PAST MEDICAL HISTORY: Coronary artery disease. Hypertension. Uncontrolled diabetes mellitus type 2. Osteoarthritis. Peripheral neuropathy. Cardiac arrhythmia. History of angina. PAST SURGICAL HISTORY: Cardiac catheterization. Stent placement. Cholecystectomy. Tubal ligation. MEDICATIONS: Insulin, amitriptyline, benazepril, gabapentin, Bystolic, omeprazole, tramadol. Details of doses were noted. ALLERGIES: CODEINE, DARVON, PRADAXA, PENICILLIN. SOCIAL HISTORY: Nonsmoker, nonalcoholic. No drug abuse. FAMILY HISTORY: Positive for heart disease, diabetes. No history of renal problems in the family. PHYSICAL EXAMINATION: Revealed a lady who is upright in bed in no respiratory distress, reasonable historian. Blood pressure has been anywhere around 162-190 systolic, pulse rate 85/minute, respiratory rate 14/minute, afebrile. HEENT: Normocephalic, atraumatic. Slightly pale conjunctivae. NECK: Supple. CHEST: Decreased basilar breath sounds. CVS: S1-S2 normal. No gallop. ABDOMEN: Soft, nontender. No organomegaly. EXTREMITIES: No cyanosis, clubbing or edema. SKIN: No skin rashes. Skin turgor normal. MUSCULOSKELETAL: No acute joint swelling or redness. Nontender. NEUROLOGICAL: Nonfocal exam. Alert, awake, oriented x3. LAB DATA AND TESTS: Labs were reviewed. Pertinent labs creatinine was 1.2. UA 500 mg of protein. Electrolytes fair. ASSESSMENT: 1) CHRONIC KIDNEY DISEASE STAGE III. Etiology of chronic kidney disease is most likely because of diabetic nephropathy and underlying uncontrolled hypertension would be contributory. UA shows 500 mg of protein. The patient may have near nephrotic range proteinuria. We will quantify proteinuria. We will rule out paraproteinemia. As an outpatient we can consider glomerular nephritis work up. Baseline ultrasonogram of kidneys was reviewed which showed normal sized kidneys at this time. No discrepancy in kidney size. Stages of chronic kidney disease were discussed. Life course of diabetic nephropathy was discussed. She was understanding. I would avoid any nonsteroidals. We will continue to monitor. 2) HYPERTENSION UNCONTROLLED. We will reduce IV fluids to 10 cc/hour. The patient appears to be fluid overloaded and partly she could have volume mediated hypertension. We will give a dose of Lasix 40 mg IV. We will increase benazepril to 20 mg p.o. and start her on hydrochlorothiazide 25 mg daily, continue Bystolic 5 mg daily. I would recommend 1500 cc fluid restriction and 2 gm salt restricted diet. 3) DIABETES MELLITUS TYPE 2: Monitoring of glycemic control was discussed. The patient is already on BEST inhibitor. We will quantify proteinuria. 4) NAUSEA AND VOMITING, IMPROVED: Could have renal manifestation of uncontrolled blood pressure. No evidence of ketosis at this time. 5) HYPOKALEMIA. We will replace potassium. Continue to monitor magnesium. Will closely follow the patient.
[2017-06-11 15:47] LABS: Collection Type CLEAN CATCH
[2017-06-11 15:48] LABS: Bilirubin NEGATIVE (NEGATIVE); COMPLETE URINE MICROSCOPIC? YES; Glucose 1000 mg/dL (NEGATIVE); Leukocyte Esterase 1+ (NEGATIVE)
[2017-06-11 16:22] LABS: Bacteria MODERATE /HPF (NEGATIVE); Epithelial Cells MANY /HPF (FEW); Mucus SLIGHT /HPF (NEGATIVE)
[2017-06-11] MEDS: TYLENOL 325 MG PO PRN ×2 (16:32→20:39)
[2017-06-11] MEDS: ELAVIL 25 MG PO SCH (21:32)
[2017-06-11] MEDS: Zofran 4 MG/2 ML VIAL IV PRN (21:33)
[2017-06-11] MEDS: Neurontin 400 MG PO SCH (21:33)
[2017-06-11] MEDS ORDERED: GABAPENTIN 1200 MG PO SCH (22:00)
[2017-06-12 05:27] LABS: Mean Cell Volume 75.2 fl (78-100); Mean Corpuscular Hemoglobin 24.1 pg (26-32); Mean Platelet Volume 12.1 fl (6-9.5); Platelet Count 136 K/mm3 (150-450); Red Blood Count 4.31 M/mm3 (4.1-5.4); Red Cell Distribution Width 14.9 % (11.5-14.0); White Blood Count 7.1 K/mm3 (4.0-10.5)
[2017-06-12 05:52] LABS: ALBUMIN 1.3 g/dL (3.4-5.0); ANION GAP 10.2 MEQ/L (5-15); BILIRUBIN,TOTAL 0.2 mg/dL (0.2-1.0); Carbon Dioxide 26.2 mEq/L (21-32); MAGNESIUM 1.8 mg/dL (1.8-2.4); Potassium 3.8 mEq/L (3.5-5.1); Total Protein 4.3 gm/dL (6.4-8.2)
--- NOTE | 2017-06-12 08:29 | PCM.NOTE ---
Date and Time: 06/12/17827 Subjective Assessment: doing better - Review of Systems Constitutional: No Fever, No Chills Eyes: No Symptoms Ears, Nose, & Throat: No Symptoms Respiratory: No Cough, No Short Of Breath Cardiac: No Chest Pain, No Edema, No Syncope Abdominal/Gastrointestinal: No Abdominal Pain, No Nausea, No Vomiting, No Diarrhea Genitourinary Symptoms: No Dysuria Musculoskeletal: No Back Pain, No Neck Pain Skin: No Rash Neurological: No Dizziness, No Focal Weakness, No Sensory Changes Psychological: No Symptoms Endocrine: No Symptoms Hematologic/Lymphatic: No Symptoms Immunological/Allergic: No Symptoms Objective Exam General Appearance: no apparent distress, alert Neurologic Exam: alert, oriented x 3, cooperative, normal mood/affect, nml cerebellar function, sensation nml, No motor deficits Skin Exam: normal color, warm, dry Eye Exam: PERRL, EOMI, eyes nml inspection Ears, Nose, Throat Exam: normal ENT inspection, pharynx normal, moist mucous membranes Neck Exam: normal inspection, non-tender, supple, full range of motion Respiratory Exam: normal breath sounds, lungs clear, No respiratory distress Cardiovascular Exam: regular rate/rhythm, normal heart sounds Gastrointestinal/Abdomen Exam: soft, No tenderness, No mass Extremity Exam: normal inspection, normal range of motion Back Exam: normal inspection, normal range of motion, No CVA tenderness, No vertebral tenderness Pelvic Exam: deferred Rectal Exam: deferred OBJECTIVE DATA Vital Signs: Vital Signs - 24 hr Temp Pulse Resp BP Pulse Ox 06/12/17 07:15 97.8 F 52 L 18 160/62 98 06/12/17 07:08 93 L 06/12/17 04:10 97.4 F 44 L 18 144/68 97 06/11/17 23:31 97.6 F 48 L 18 176/70 96 06/11/17 20:34 94 L 06/11/17 20:00 97.7 F 51 L 22 194/85 94 L 06/11/17 16:00 97.7 F 51 L 20 197/84 97 06/11/17 13:00 97.6 F 46 L 18 182/78 98 06/11/17 09:33 48 L 158/70 Oxygen-Last 24 hours O2 Percentage 2 Liters = 28% O2 Percentage 2 Liters = 28% O2 Percentage 2 Liters = 28% Pain Assessment - Last Documented Pain Intensity 3 Pain Scale Used FLACC Intake and Output: Intake & Output 06/09/17 06/10/17 06/11/17 06/12/17 11:59 11:59 11:59 11:59 Intake Total 0483 2582 Output Total 300 400 Balance 2665 2623 Weight 76.657 kg Lab Results: Accuchecks Date 06/12/17 Date 06/11/17 Date 06/11/17 Date 06/11/17 Time 07:30 Time 22:00 Time 16:30 Time 11:48 Accucheck Value: 252 Accucheck Value: 233 Accucheck Value: 175 Lab Results-Last 24 Hours 06/10/17 06/11/17 06/11/17 Range/Units 21:50 14:50 14:50 WBC (4.0-10.5) K/mm3 RBC (4.1-5.4) M/mm3 Hgb (12.0-16.0) gm/dl Hct (35-47) % MCV (78-100) fl MCH (26-32) pg MCHC (32-36) g/dl RDW (11.5-14.0) % Plt Count (150-450) K/mm3 MPV (6-9.5) fl Sodium (136-145) mEq/L Potassium (3.5-5.1) mEq/L Chloride (98-107) mEq/L Carbon Dioxide (21-32) mEq/L Anion Gap (5-15) MEQ/L BUN (9-20) mg/dL Creatinine (0.55-1.30) mg/dl Estimated GFR ML/MIN Glucose (70-110) MG/DL Hemoglobin A1c 10.9 H (4.5-6.2) Calcium (8.5-10.1) mg/dL Magnesium (1.8-2.4) mg/dL Total Bilirubin (0.2-1.0) mg/dL AST (15-37) U/L ALT (12-78) U/L Alkaline Phosphatase (46-116) U/L Serum Total Protein (6.4-8.2) gm/dL Albumin (3.4-5.0) g/dL Ur Collection Type Urine Color (YELLOW) Urine Appearance (CLEAR) Urine pH (5-6) Ur Specific Hope (1.005-1.025) Urine Protein (Negative) Urine Ketones (NEGATIVE) Urine Blood (0-5) Keny/ul Urine Nitrite (NEGATIVE) Urine Bilirubin (NEGATIVE) Urine Urobilinogen (0-1) mg/dL Ur Leukocyte Esterase (NEGATIVE) Urine Microscopic RBC (0-2) /HPF Urine Microscopic WBC (0-5) /HPF Ur Epithelial Cells (FEW) /HPF Urine Bacteria (NEGATIVE) /HPF Hyaline Casts (0-2) /LPF Urine Mucus (NEGATIVE) /HPF Ur Random Creatinine 204.62 H (30-125) MG/DL U Random Total Protein 1380.0 mg/dL Urine Glucose (NEGATIVE) mg/dL Specimen Received 06/11/17 06/11/17 06/12/17 Range/Units 14:50 21:07 05:00 WBC 7.1 (4.0-10.5) K/mm3 RBC 4.31 (4.1-5.4) M/mm3 Hgb 10.4 L (12.0-16.0) gm/dl Hct 32.4 L (35-47) % MCV 75.2 L (78-100) fl MCH 24.1 L (26-32) pg MCHC 32.1 (32-36) g/dl RDW 14.9 H (11.5-14.0) % Plt Count 136 L (150-450) K/mm3 MPV 12.1 H (6-9.5) fl Sodium (136-145) mEq/L Potassium 4.3 (3.5-5.1) mEq/L Chloride (98-107) mEq/L Carbon Dioxide (21-32) mEq/L Anion Gap (5-15) MEQ/L BUN (9-20) mg/dL Creatinine (0.55-1.30) mg/dl Estimated GFR ML/MIN Glucose (70-110) MG/DL Hemoglobin A1c (4.5-6.2) Calcium (8.5-10.1) mg/dL Magnesium (1.8-2.4) mg/dL Total Bilirubin (0.2-1.0) mg/dL AST (15-37) U/L ALT (12-78) U/L Alkaline Phosphatase (46-116) U/L Serum Total Protein (6.4-8.2) gm/dL Albumin (3.4-5.0) g/dL Ur Collection Type CLEAN CATCH Urine Color YELLOW (YELLOW) Urine Appearance CLOUDY (CLEAR) Urine pH 5.0 (5-6) Ur Specific Hope 1.015 (1.005-1.025) Urine Protein 1000 (Negative) Urine Ketones NEGATIVE (NEGATIVE) Urine Blood 5-10 (0-5) Keny/ul Urine Nitrite NEGATIVE (NEGATIVE) Urine Bilirubin NEGATIVE (NEGATIVE) Urine Urobilinogen NORMAL (0-1) mg/dL Ur Leukocyte Esterase 1+ (NEGATIVE) Urine Microscopic RBC 0-2 (0-2) /HPF Urine Microscopic WBC 5-10 (0-5) /HPF Ur Epithelial Cells MANY (FEW) /HPF Urine Bacteria MODERATE (NEGATIVE) /HPF Hyaline Casts 10-25 (0-2) /LPF Urine Mucus SLIGHT (NEGATIVE) /HPF Ur Random Creatinine (30-125) MG/DL U Random Total Protein mg/dL Urine Glucose 1000 (NEGATIVE) mg/dL Specimen Received 06/11/17 1430 06/12/17 Range/Units 05:00 WBC (4.0-10.5) K/mm3 RBC (4.1-5.4) M/mm3 Hgb (12.0-16.0) gm/dl Hct (35-47) % MCV (78-100) fl MCH (26-32) pg MCHC (32-36) g/dl RDW (11.5-14.0) % Plt Count (150-450) K/mm3 MPV (6-9.5) fl Sodium 145 (136-145) mEq/L Potassium 3.8 (3.5-5.1) mEq/L Chloride 112 H (98-107) mEq/L Carbon Dioxide 26.2 (21-32) mEq/L Anion Gap 10.2 (5-15) MEQ/L BUN 18 (9-20) mg/dL Creatinine 1.56 H (0.55-1.30) mg/dl Estimated GFR 35 ML/MIN Glucose 100 (70-110) MG/DL Hemoglobin A1c (4.5-6.2) Calcium 7.9 L (8.5-10.1) mg/dL Magnesium 1.8 (1.8-2.4) mg/dL Total Bilirubin 0.20 (0.2-1.0) mg/dL AST 13 L (15-37) U/L ALT 8 L (12-78) U/L Alkaline Phosphatase 56 (46-116) U/L Serum Total Protein 4.3 L (6.4-8.2) gm/dL Albumin 1.3 L (3.4-5.0) g/dL Ur Collection Type Urine Color (YELLOW) Urine Appearance (CLEAR) Urine pH (5-6) Ur Specific Hope (1.005-1.025) Urine Protein (Negative) Urine Ketones (NEGATIVE) Urine Blood (0-5) Keny/ul Urine Nitrite (NEGATIVE) Urine Bilirubin (NEGATIVE) Urine Urobilinogen (0-1) mg/dL Ur Leukocyte Esterase (NEGATIVE) Urine Microscopic RBC (0-2) /HPF Urine Microscopic WBC (0-5) /HPF Ur Epithelial Cells (FEW) /HPF Urine Bacteria (NEGATIVE) /HPF Hyaline Casts (0-2) /LPF Urine Mucus (NEGATIVE) /HPF Ur Random Creatinine (30-125) MG/DL U Random Total Protein mg/dL Urine Glucose (NEGATIVE) mg/dL Specimen Received Radiology Exams: Radiology Procedures Category Date Time Status ABDOMEN AND PELVIS W/0 CONTRAS [CT] Urgent Exams 06/11/17 09:06 Completed KIDNEY [US] Urgent Exams 06/11/17 Completed Multi-Disciplinary Progress Notes: Multi-Disciplinary Progress Notes 06/11/17 09:43 Case Management Note by Caroline Monzon ATTEMPTED TO REACH ADRYAN HARP, PT'S DAUGHTER, AND APPOINTED LAY CAREGIVER. [phone]. LEFT VOICEMAIL MESSAGE TO CALL THIS TENTMAKER TO DISCUSS DISCHARGE PLANNING. Initialized on 06/11/17 09:43 - END OF NOTE Assessment/Plan (1) Dehydration Current Visit: Yes Status: Resolved Code(s): E86.0 - DEHYDRATION (2) Nausea & vomiting Current Visit: Yes Status: Resolved Qualifiers: Vomiting type: unspecified Code(s): R11.2 - NAUSEA WITH VOMITING, UNSPECIFIED (3) Uncontrolled hypertension Current Visit: Yes Status: Acute Code(s): I10 - ESSENTIAL (PRIMARY) HYPERTENSION (4) Renal insufficiency Current Visit: Yes Status: Acute (5) Uncontrolled diabetes mellitus Current Visit: Yes Status: Acute Qualifiers: Diabetes mellitus type: type 2 Diabetes mellitus complication status: with hyperglycemia Diabetes mellitus account executive agribusiness insulin use: with account executive agribusiness use Qualified Code(s): E11.65 - Type 2 diabetes mellitus with hyperglycemia; Z79.4 - lunch cook (current) use of insulin Code(s): E11.65 - TYPE 2 DIABETES MELLITUS WITH HYPERGLYCEMIA
[2017-06-12] MEDS: Lantus Insulin SQ SCH (10:49)
[2017-06-12] MEDS: Sodium Chloride 0.9% 1000 ML 1,000 ML IV SCH ×2 (10:50→10:56)
[2017-06-12] MEDS: Klor Con 10 MEQ PO SCH (10:54)
[2017-06-12] MEDS: ENOXAPARIN SODIUM SQ SCH (10:54)
[2017-06-12] MEDS: Protonix 40MG Tablet PO SCH ×2 (10:54→22:00)
[2017-06-12] MEDS: Bystolic 5 MG PO SCH (10:54)
[2017-06-12] MEDS: hydroDIURIL 25 MG PO SCH (10:54)
[2017-06-12] MEDS: Lotensin 10 MG PO SCH (11:03)
[2017-06-12] MEDS: Catapres 0.1 MG PO PRN (12:26)
[2017-06-12] MEDS: Aldactone 25 MG PO SCH (18:35)
[2017-06-12] MEDS: NON-FORMULARY ITEM PO SCH (18:37)
[2017-06-12] MEDS: Trandate 100 MG PO SCH (18:39)
[2017-06-12] MEDS: Neurontin 400 MG PO SCH (21:59)
[2017-06-12] MEDS: ELAVIL 25 MG PO SCH (22:44)
[2017-06-13 04:55] VITALS: O2SAT 97
[2017-06-13 06:20] LABS: ALBUMIN 1.4 g/dL (3.4-5.0); ANION GAP 9.6 MEQ/L (5-15); BILIRUBIN,TOTAL 0.1 mg/dL (0.2-1.0); Carbon Dioxide 28.1 mEq/L (21-32); MAGNESIUM 1.9 mg/dL (1.8-2.4); Potassium 4.5 mEq/L (3.5-5.1); Total Protein 4.4 gm/dL (6.4-8.2)
[2017-06-13] MEDS: Lotensin 10 MG PO SCH (09:47)
[2017-06-13] MEDS: ENOXAPARIN SODIUM SQ SCH (09:47)
[2017-06-13] MEDS: Protonix 40MG Tablet PO SCH (09:47)
[2017-06-13] MEDS: Trandate 100 MG PO SCH (09:47)
[2017-06-13] MEDS: Aldactone 25 MG PO SCH (09:47)
[2017-06-13] MEDS: NON-FORMULARY ITEM PO SCH (09:48)
[2017-06-13] MEDS: Lantus Insulin SQ SCH (09:55)
--- NOTE | 2017-06-13 13:10 | PCM.NOTE ---
Date and Time: 06/13/17 1309 Subjective Assessment: doing better - Review of Systems Constitutional: No Fever, No Chills Eyes: No Symptoms Ears, Nose, & Throat: No Symptoms Respiratory: No Cough, No Short Of Breath Cardiac: No Chest Pain, No Edema, No Syncope Abdominal/Gastrointestinal: No Abdominal Pain, No Nausea, No Vomiting, No Diarrhea Genitourinary Symptoms: No Dysuria Musculoskeletal: No Back Pain, No Neck Pain Skin: No Rash Neurological: No Dizziness, No Focal Weakness, No Sensory Changes Psychological: No Symptoms Endocrine: No Symptoms Hematologic/Lymphatic: No Symptoms Immunological/Allergic: No Symptoms Objective Exam General Appearance: no apparent distress, alert Neurologic Exam: alert, oriented x 3, cooperative, normal mood/affect, nml cerebellar function, sensation nml, No motor deficits Skin Exam: normal color, warm, dry Eye Exam: PERRL, EOMI, eyes nml inspection Ears, Nose, Throat Exam: normal ENT inspection, pharynx normal, moist mucous membranes Neck Exam: normal inspection, non-tender, supple, full range of motion Respiratory Exam: normal breath sounds, lungs clear, No respiratory distress Cardiovascular Exam: regular rate/rhythm, normal heart sounds Gastrointestinal/Abdomen Exam: soft, No tenderness, No mass Extremity Exam: normal inspection, normal range of motion Back Exam: normal inspection, normal range of motion, No CVA tenderness, No vertebral tenderness Pelvic Exam: deferred Rectal Exam: deferred OBJECTIVE DATA Vital Signs: Vital Signs - 24 hr Temp Pulse Resp BP Pulse Ox 06/13/17 11:38 97.6 F 58 L 18 175/77 97 06/13/17 07:25 97.4 F 57 L 16 178/79 97 06/13/17 04:05 98.4 F 58 L 16 168/81 97 06/12/17 23:40 98.5 F 58 L 16 151/71 98 06/12/17 20:00 98.1 F 56 L 16 170/71 97 06/12/17 15:30 98.1 F 55 L 20 157/89 96 Oxygen-Last 24 hours O2 Percentage 2 Liters = 28% O2 Percentage 2 Liters = 28% O2 Percentage 2 Liters = 28% O2 Percentage 2 Liters = 28% O2 Percentage 2 Liters = 28% O2 Percentage 2 Liters = 28% Pain Assessment - Last Documented Pain Intensity 0 Pain Scale Used 0-10 Pain Scale Intake and Output: Intake & Output 06/11/17 06/12/17 06/13/17 06/14/17 11:59 11:59 11:59 11:59 Intake Total 2051 2942 2318 480 Output Total 854 643 9520 Balance 1758 5252 -82 480 Weight 76.657 kg Lab Results: Accuchecks Date 06/13/17 Date 06/13/17 Date 06/12/17 Date 06/12/17 Time 11:00 Time 06:00 Time 22:00 Time 16:30 Accucheck Value: 108 Accucheck Value: 66 Accucheck Value: 140 Accucheck Value: 109 Lab Results-Last 24 Hours 06/13/17 Range/Units 05:22 Sodium 145 (136-145) mEq/L Potassium 4.5 (3.5-5.1) mEq/L Chloride 112 H (98-107) mEq/L Carbon Dioxide 28.1 (21-32) mEq/L Anion Gap 9.6 (5-15) MEQ/L BUN 23 H (9-20) mg/dL Creatinine 1.35 H (0.55-1.30) mg/dl Estimated GFR 41 ML/MIN Glucose 73 (70-110) MG/DL Calcium 8.4 L (8.5-10.1) mg/dL Magnesium 1.9 (1.8-2.4) mg/dL Total Bilirubin 0.10 L (0.2-1.0) mg/dL AST 11 L (15-37) U/L ALT 13 (12-78) U/L Alkaline Phosphatase 54 (46-116) U/L Serum Total Protein 4.4 L (6.4-8.2) gm/dL Albumin 1.4 L (3.4-5.0) g/dL Assessment/Plan (1) Dehydration Current Visit: Yes Status: Resolved Code(s): E86.0 - DEHYDRATION (2) Nausea & vomiting Current Visit: Yes Status: Resolved Qualifiers: Vomiting type: unspecified Code(s): R11.2 - NAUSEA WITH VOMITING, UNSPECIFIED (3) Uncontrolled hypertension Current Visit: Yes Status: Acute Code(s): I10 - ESSENTIAL (PRIMARY) HYPERTENSION (4) Renal insufficiency Current Visit: Yes Status: Acute (5) Uncontrolled diabetes mellitus Current Visit: Yes Status: Acute Qualifiers: Diabetes mellitus type: type 2 Diabetes mellitus complication status: with hyperglycemia Diabetes mellitus fci insulin use: with senior media director use Qualified Code(s): E11.65 - Type 2 diabetes mellitus with hyperglycemia; Z79.4 - supervisor hot dip tinning (current) use of insulin Code(s): E11.65 - TYPE 2 DIABETES MELLITUS WITH HYPERGLYCEMIA
[2017-06-13 16:39] VITALS: BP 250/98; PULSE 62
[2017-06-13] MEDS: Catapres 0.1 MG PO PRN (18:45)
[2017-06-14 12:09] LABS: Kappa Free Light Chain 44.7 mg/L (0.0-22.2); Kappa Lambda Ratio 2.023 (0.410-1.430)
[2017-06-15 11:15] LABS: PROTEIN BETA 2 0.25 g/dL (0.18-0.50); Protein Beta 1 0.22 g/dL (0.35-0.66)
[2017-06-15 20:16] LABS: Monoclonal Protein ID Interp See Result Note:
== END 2017-06-13 19:40 | disposition short-term general hospital (02) | DRG 641 ==
LOC: MED SURG 13:36 → INTOOBSV 18:32 → OBSVTOIN 06-11 13:36
PROVIDERS: ADMIT General Practice; ATTEND General Practice
DX: E86.0 Dehydration (principal); I12.9 Hypertensive chronic kidney disease with stage 1 through stage 4 chronic kidney disease, or unspecified chronic kidney disease; E11.22 Type 2 diabetes mellitus with diabetic chronic kidney disease; E11.65 Type 2 diabetes mellitus with hyperglycemia; N18.3 Chronic kidney disease, stage 3 (moderate); R11.2 Nausea with vomiting, unspecified; Z79.4 Long term (current) use of insulin; R10.9 Unspecified abdominal pain; E87.6 Hypokalemia
CPT/HCPCS: 36415; 71020; 74176; 76770; 80053; 81000; 81002; 82570; 82962; 83036; 83735; 83880; 83883; 84132; 84155; 84156; 85025; 85027; 86160; 86334; 87077; 87086; 87186; 94760; G0378; J1650; J1940; J2270; J2405; J3475; J3480; A9270-GY

== ENCOUNTER 2017-06-10 18:13 | Emergency (ER) | payer MEDICARE | END 2017-06-10 19:01 | disposition home or self-care (01) | LOC: ED 18:13 | DX: Z53.8 Procedure and treatment not carried out for other reasons (principal) ==

== ENCOUNTER 2017-09-14 09:38 | Observation (INO) | payer MEDICARE ==
[2017-09-14] MEDS: Sodium Chloride 0.9% 1000 ML 1,000 ML IV SCH ×2 (11:04→21:17)
[2017-09-14 11:07] LABS: BASOPHIL % 0.5 % (0.0-0.4); Eosinophil % 1.7 % (0.00-5.0); Granulocytes % 79.7 % (36.0-66.0); Lymphocytes % 10.3 % (24.0-44.0); Mean Platelet Volume 13.5 fl (6-9.5); Monocytes % 7.8 % (0.0-12.0); Platelet Count 133 K/mm3 (150-450); Red Blood Count 4.43 M/mm3 (4.1-5.4); Red Cell Distribution Width 13.9 % (11.5-14.0); White Blood Count 6.4 K/mm3 (4.0-10.5)
[2017-09-14 11:09] LABS: Mean Corpuscular Hemoglobin 24.3 pg (26-32)
[2017-09-14 11:27] LABS: BILIRUBIN,TOTAL 0.4 mg/dL (0.2-1.0); Carbon Dioxide 24.4 mEq/L (21-32); Potassium 3.6 mEq/L (3.5-5.1); Total Protein 5.5 gm/dL (6.4-8.2)
[2017-09-14] MEDS: Bystolic 5 MG PO SCH (14:06)
[2017-09-14] MEDS: ECOTRIN 81 MG PO SCH (14:06)
[2017-09-14] MEDS: Zestril 20 MG PO SCH (14:06)
[2017-09-14] MEDS: Lantus Insulin SQ SCH (14:06)
[2017-09-14] MEDS ORDERED: TYLENOL 325 MG PO PRN (21:29)
[2017-09-14] MEDS ORDERED: Neurontin 400 MG PO SCH (22:00)
[2017-09-14] MEDS ORDERED: GABAPENTIN 1200 MG PO SCH (22:00)
--- NOTE | 2017-09-15 06:35 | PCM.SSS ---
History of Present Illness - Chief Complaint Chief Complaint: c/o nausea and vomiting for 2-3 days History of Present Illness: see H& P - Review of Systems Constitutional: No Fever, No Chills Eyes: No Symptoms Ears, Nose, & Throat: No Symptoms Respiratory: No Cough, No Short Of Breath Cardiac: No Chest Pain, No Edema, No Syncope Abdominal/Gastrointestinal: Nausea, Vomiting, No Abdominal Pain, No Diarrhea Genitourinary Symptoms: No Dysuria Musculoskeletal: No Back Pain, No Neck Pain Skin: No Rash Neurological: No Dizziness, No Focal Weakness, No Sensory Changes Psychological: No Symptoms Endocrine: No Symptoms Hematologic/Lymphatic: No Symptoms Immunological/Allergic: No Symptoms Medications & Allergies Home Medications: Home Medication List Gabapentin [Neurontin] 1,200 mg PO HS 06/10/17 [History Confirmed 09/14/17] Nebivolol HCl 5 MG [Bystolic 5 MG] 5 tab PO DAILY 06/10/17 [History Confirmed 09/14/17] Aspirin EC 81 mg [Ecotrin 81 mg] 81 mg PO DAILY 09/14/17 [History Confirmed 09/14/17] Insulin Degludec [Tresiba Flextouch U-200] 24 unit SQ DAILY 09/14/17 [History Confirmed 09/14/17] Lisinopril 20 mg PO DAILY 09/14/17 [History Confirmed 09/14/17] Allergies/Adverse Reactions: Allergies Allergy/AdvReac Type Severity Reaction Status Date / Time codeine [Codeine] Allergy Severe Verified 09/14/17 10:54 propoxyphene HCl Allergy Severe Tightness Verified 09/14/17 10:54 [From Darvon] of Throat dabigatran etexilate Allergy Verified 09/14/17 10:54 [From Pradaxa] Penicillins Allergy Verified 09/14/17 10:54 - Past Medical History Past Medical History: Yes Neurological History: Peripheral Neuropathy ENT History: No Pertinent History Cardiac History: Angina, Arrhythmia, Coronary Artery Disease, Hypertension Respiratory History: No Pertinent History Endocrine Medical History: Diabetes Type II Musculoskelatal History: Arthritis GI Medical History: No Pertinent History History: No Pertinent History Pyscho-Social History: No Pertinent History Reproductive Disorders: No Pertinent History Comment: afib, cryo to cervic for precancerous cells - Female History Are you now?: No - Past Surgical History Past Surgical History: Yes Neuro Surgical History: No Pertinent History Cardiac History: Cardiac Catheterization, Cardiac Stent Respiratory Surgery: No Pertinent History GI Surgical History: No Pertinent History, Cholecystectomy Genitourinary Surgical Hx: No Pertinent History Musculskeletal Surgical Hx: No Pertinent History Female Surgical History: Tubal Ligation Other Surgical History: skin grafts to upper thighs as a child - Social History Smoking Status: Never smoker Exposure to second hand smoke: No Alcohol: None Drug Use: none Significant Family History: heart disease, diabetes - Physical Exam Vital Signs: Vital Signs - 24 hr Temp Pulse Resp BP Pulse Ox 09/15/17 04:00 97.6 F 49 L 15 170/73 96 09/15/17 00:00 98.0 F 46 L 16 180/84 98 09/14/17 20:00 98.3 F 58 L 20 220/86 97 09/14/17 16:00 98.1 F 68 18 155/89 98 09/14/17 11:07 98.6 F 73 20 184/76 99 09/14/17 10:27 98.6 F 73 20 184/76 99 09/14/17 10:10 98.6 F 73 18 203/93 99 General Appearance: no apparent distress, alert Neurologic Exam: alert, oriented x 3, cooperative, normal mood/affect, nml cerebellar function, nml station & gait, sensation nml, No motor deficits Eye Exam: PERRL/EOMI, eyes nml inspection Ears, Nose, Throat Exam: normal ENT inspection, TMs normal, pharynx normal, moist mucous membranes Neck Exam: normal inspection, non-tender, supple, full range of motion Respiratory Exam: normal breath sounds, lungs clear, No respiratory distress Cardiovascular Exam: regular rate/rhythm, normal heart sounds, normal peripheral pulses Gastrointestinal/Abdomen Exam: soft, normal bowel sounds, No tenderness, No mass Back Exam: normal inspection, normal range of motion, No CVA tenderness, No vertebral tenderness Extremity Exam: normal inspection, normal range of motion, pelvis stable Skin Exam: normal color, warm, dry, No rash Lymphatic Exam: No adenopathy Results - Labs Lab/Micro Results: Accuchecks Date 09/14/17 Date 09/14/17 Time 21:30 Time 16:39 Accucheck Value: 166 Accucheck Value: 159 Lab Results-Last 24 Hours 09/14/17 09/14/17 09/14/17 Range/Units 10:40 10:40 10:40 WBC 6.4 (4.0-10.5) K/mm3 RBC 4.43 (4.1-5.4) M/mm3 Hgb 10.8 L (12.0-16.0) gm/dl Hct 34.1 L (35-47) % MCV 77.0 L (78-100) fl MCH 24.3 L (26-32) pg MCHC 31.7 L (32-36) g/dl RDW 13.9 (11.5-14.0) % Plt Count 133 L (150-450) K/mm3 MPV 13.5 H (6-9.5) fl Gran % 79.7 H (36.0-66.0) % Lymphocytes % 10.3 L (24.0-44.0) % Monocytes % 7.8 (0.0-12.0) % Eosinophils % 1.7 (0.00-5.0) % Basophils % 0.5 (0.0-0.4) % Basophils # 0.03 (0-0.4) Sodium 142 (136-145) mEq/L Potassium 3.6 (3.5-5.1) mEq/L Chloride 110 H (98-107) mEq/L Carbon Dioxide 24.4 (21-32) mEq/L Anion Gap 11.0 (5-15) MEQ/L BUN 13 (9-20) mg/dL Creatinine 1.29 (0.55-1.30) mg/dl Estimated GFR 43 ML/MIN Glucose 228 H (70-110) MG/DL Calcium 8.5 (8.5-10.1) mg/dL Total Bilirubin 0.40 (0.2-1.0) mg/dL AST 16 (15-37) U/L ALT 14 (12-78) U/L Alkaline Phosphatase 63 (46-116) U/L Serum Total Protein 5.5 L (6.4-8.2) gm/dL Albumin 2.0 L (3.4-5.0) g/dL Influenza Type A Ag NEGATIVE (NEGATIVE) Influenza Type B Ag NEGATIVE (NEGATIVE) RSV (PCR) NEGATIVE (Negative) Slides for Path Review YES Accuchecks Date 09/14/17 Date 09/14/17 Time 21:30 Time 16:39 Accucheck Value: 166 Accucheck Value: 159 Assessment/Plan (1) Dehydration Current Visit: Yes Status: Resolved Code(s): E86.0 - DEHYDRATION (2) Nausea & vomiting Current Visit: Yes Status: Resolved Qualifiers: Vomiting type: unspecified Vomiting Intractability: non-intractable Qualified Code(s): R11.2 - Nausea with vomiting, unspecified Code(s): R11.2 - NAUSEA WITH VOMITING, UNSPECIFIED (3) Uncontrolled diabetes mellitus Current Visit: Yes Status: Chronic Qualifiers: Diabetes mellitus type: type 2 Diabetes mellitus complication status: with hyperglycemia Diabetes mellitus halfway insulin use: with halfway use Qualified Code(s): E11.65 - Type 2 diabetes mellitus with hyperglycemia; Z79.4 - buttermaker (current) use of insulin Code(s): E11.65 - TYPE 2 DIABETES MELLITUS WITH HYPERGLYCEMIA (4) Uncontrolled hypertension Current Visit: Yes Status: Chronic Code(s): I10 - ESSENTIAL (PRIMARY) HYPERTENSION Hospital Summary - Hospital Course Hospital Course: Chief Complaint Diagnosis DEHYDRATION Allergies Allergy/AdvReac Type Severity Reaction Status Date / Time codeine [Codeine] Allergy Severe Verified 09/14/17 10:54 propoxyphene HCl Allergy Severe Tightness Verified 09/14/17 10:54 [From Darvon] of Throat dabigatran etexilate Allergy Verified 09/14/17 10:54 [From Pradaxa] Penicillins Allergy Verified 09/14/17 10:54 Vital Signs (Last 24 hours) Temp Pulse Resp BP Pulse Ox 09/15/17 04:00 97.6 F 49 L 15 170/73 96 09/15/17 00:00 98.0 F 46 L 16 180/84 98 09/14/17 20:00 98.3 F 58 L 20 220/86 97 09/14/17 16:00 98.1 F 68 18 155/89 98 09/14/17 11:07 98.6 F 73 20 184/76 99 09/14/17 10:27 98.6 F 73 20 184/76 99 09/14/17 10:10 98.6 F 73 18 203/93 99 Home Medications Medication Instructions Recorded Confirmed Last Taken Type Aspirin EC 81 mg [Ecotrin 81 81 mg PO DAILY 09/14/17 09/14/17 Unknown History mg] Insulin Degludec [Tresiba 24 unit SQ DAILY 09/14/17 09/14/17 09/13/17 07:00 History Flextouch U-200] 24 Lisinopril [Lisinopril] 20 mg PO DAILY 09/14/17 09/14/17 09/13/17 07:00 History Current Medications Generic Name Dose Route Start Last Admin Trade Name Freq PRN Reason Stop Dose Admin Acetaminophen 650 mg 09/14/17 21:29 09/14/17 21:32 Tylenol 325 Mg PO 10/14/17 21:28 650 mg Q4H PRN PRN Administration PAIN AND/OR FEVER Aspirin 81 mg 09/14/17 14:00 09/14/17 14:06 Ecotrin 81 Mg PO 10/14/17 13:59 81 mg DAILY ED Administration Gabapentin 1,200 mg 09/14/17 22:00 09/14/17 21:17 Neurontin 400 Mg PO 10/14/17 21:59 1,200 mg HS ED Administration Sodium Chloride 1,000 mls @ 100 mls/hr 09/14/17 10:30 09/14/17 21:17 Sodium Chloride 0.9% 1000 Ml IV 10/14/17 10:29 100 mls/hr .Q10H ED Administration Insulin Glargine 24 unit 09/14/17 14:00 09/14/17 14:06 Lantus Insulin SQ 10/14/17 13:59 24 unit DAILY ED Administration Lisinopril 20 mg 09/14/17 14:00 09/14/17 14:06 Zestril 20 Mg PO 10/14/17 13:59 20 mg DAILY ED Administration Nebivolol 5 mg 09/14/17 14:00 09/14/17 14:06 Bystolic 5 Mg PO 10/14/17 13:59 5 mg DAILY ED Administration Intake & Output (Last 24 hours) 09/12/17 09/13/17 09/14/17 09/15/17 11:59 11:59 11:59 11:59 Intake Total 2658 Output Total 1000 Balance 1658 Weight 70.76 kg Laboratory Results (Last 24 hours) 09/14/17 09/14/17 09/14/17 10:40 10:40 10:40 WBC 6.4 RBC 4.43 Hgb 10.8 L Hct 34.1 L MCV 77.0 L MCH 24.3 L MCHC 31.7 L RDW 13.9 Plt Count 133 L MPV 13.5 H Gran % 79.7 H Lymphocytes % 10.3 L Monocytes % 7.8 Eosinophils % 1.7 Basophils % 0.5 Basophils # 0.03 Sodium 142 Potassium 3.6 Chloride 110 H Carbon Dioxide 24.4 Anion Gap 11.0 BUN 13 Creatinine 1.29 Estimated GFR 43 Glucose 228 H Calcium 8.5 Total Bilirubin 0.40 AST 16 ALT 14 Alkaline Phosphatase 63 Serum Total Protein 5.5 L Albumin 2.0 L Influenza Type A Ag NEGATIVE Influenza Type B Ag NEGATIVE RSV (PCR) NEGATIVE Slides for Path Review YES Orders (Last 24 hours) Category Date Time Status Admission/Status Order ROUTINE Care 09/14/17 10:50 Active IV Insertion ROUTINE Care 09/14/17 10:26 Completed Clear Liquid Diet 09/14/17 Lunch Active Nutritional Admission Screen Diet 09/14/17 10:48 Active Regular Diet Diet 09/15/17 Breakfast Active CBC W DIFF Routine Lab 09/14/17 10:40 Completed CMP Routine Lab 09/14/17 10:40 Completed Respiratory Panel Urgent Lab 09/14/17 10:40 Completed Acetaminophen 325 mg [Tylenol 325 mg] Med 09/14/17 21:29 Ordered 650 mg PO Q4H PRN PRN Aspirin EC 81 mg [Ecotrin 81 mg] Med 09/14/17 14:00 Active 81 mg PO DAILY Gabapentin 400 mg [Neurontin 400 MG] Med 09/14/17 22:00 Active 1,200 mg PO HS Insulin Glargine [Lantus Insulin] Med 09/14/17 14:00 Active 24 unit SQ DAILY Lisinopril 20 mg [Zestril 20 MG] Med 09/14/17 14:00 Active 20 mg PO DAILY NaCl 0.9% 1000 ml [Sodium Chloride 0.9% 1000 ML] 1,000 Med 09/14/17 10:30 Active ml IV 100 mls/hr Nebivolol HCl 5 MG [Bystolic 5 MG] Med 09/14/17 14:00 Active 5 mg PO DAILY Patient Care Notes (Last 24 hours) 09/14/17 11:23 Nursing Note by Katie Silva PT HAS SOME MEDICATIONS AT [facility] THAT SHE HAS NEVER TAKEN. STATES SHE CANT AFFORD THEM. CURRENT MED LIST IS WHAT SHE IS CURRENTLY TAKING. Initialized on 09/14/17 11:23 - END OF NOTE - Vitals & Intake/Output Vital Signs: Vital Signs Temperature 97.6 F 09/15/17 04:00 Pulse Rate 49 L 09/15/17 04:00 Respiratory Rate 15 09/15/17 04:00 Blood Pressure 170/73 09/15/17 04:00 O2 Sat by Pulse Oximetry 96 09/15/17 04:00 Intake & Output: Intake & Output 09/12/17 09/13/17 09/14/17 09/15/17 11:59 11:59 11:59 11:59 Intake Total 2658 Output Total 1000 Balance 1658 Weight 70.76 kg - Lab Result Diagrams: 09/14/17 10:40 09/14/17 10:40 Lab Results-Last 24 Hrs: Accuchecks Date 09/14/17 Date 09/14/17 Time 21:30 Time 16:39 Accucheck Value: 166 Accucheck Value: 159 Lab Results-Last 24 Hours 09/14/17 09/14/17 09/14/17 Range/Units 10:40 10:40 10:40 WBC 6.4 (4.0-10.5) K/mm3 RBC 4.43 (4.1-5.4) M/mm3 Hgb 10.8 L (12.0-16.0) gm/dl Hct 34.1 L (35-47) % MCV 77.0 L (78-100) fl MCH 24.3 L (26-32) pg MCHC 31.7 L (32-36) g/dl RDW 13.9 (11.5-14.0) % Plt Count 133 L (150-450) K/mm3 MPV 13.5 H (6-9.5) fl Gran % 79.7 H (36.0-66.0) % Lymphocytes % 10.3 L (24.0-44.0) % Monocytes % 7.8 (0.0-12.0) % Eosinophils % 1.7 (0.00-5.0) % Basophils % 0.5 (0.0-0.4) % Basophils # 0.03 (0-0.4) Sodium 142 (136-145) mEq/L Potassium 3.6 (3.5-5.1) mEq/L Chloride 110 H (98-107) mEq/L Carbon Dioxide 24.4 (21-32) mEq/L Anion Gap 11.0 (5-15) MEQ/L BUN 13 (9-20) mg/dL Creatinine 1.29 (0.55-1.30) mg/dl Estimated GFR 43 ML/MIN Glucose 228 H (70-110) MG/DL Calcium 8.5 (8.5-10.1) mg/dL Total Bilirubin 0.40 (0.2-1.0) mg/dL AST 16 (15-37) U/L ALT 14 (12-78) U/L Alkaline Phosphatase 63 (46-116) U/L Serum Total Protein 5.5 L (6.4-8.2) gm/dL Albumin 2.0 L (3.4-5.0) g/dL Influenza Type A Ag NEGATIVE (NEGATIVE) Influenza Type B Ag NEGATIVE (NEGATIVE) RSV (PCR) NEGATIVE (Negative) Slides for Path Review YES Micro Results-Entire Visit: Accuchecks Date 09/14/17 Date 09/14/17 Time 21:30 Time 16:39 Accucheck Value: 166 Accucheck Value: 159 - Discharge Discharge Date: 09/15/17 Disposition: Home, Self-Care Condition: Stable Prescriptions: Continue Gabapentin [Neurontin] 1,200 mg PO HS Nebivolol HCl 5 MG [Bystolic 5 MG] 5 tab PO DAILY Lisinopril 20 mg PO DAILY Insulin Degludec [Tresiba Flextouch U-200] 24 unit SQ DAILY Aspirin EC 81 mg [Ecotrin 81 mg] 81 mg PO DAILY Follow up with: CANDIE QUINTERO MD [ACTIVE STAFF] - 1 Week
[2017-09-15 07:22] VITALS: BP 174/82; PULSE 55; O2SAT 20
[2017-09-15] MEDS: Lantus Insulin SQ SCH (08:17)
[2017-09-15] MEDS: ECOTRIN 81 MG PO SCH (08:17)
[2017-09-15] MEDS: Zestril 20 MG PO SCH (08:17)
[2017-09-15] MEDS: Bystolic 5 MG PO SCH (08:17)
[2017-09-15] MEDS ORDERED: INSULIN DEGLUDEC 24 UNIT SQ SCH (10:00)
== END 2017-09-15 10:10 | disposition home or self-care (01) ==
LOC: MED SURG 10:01
PROVIDERS: ADMIT General Practice; ATTEND General Practice
DX: E86.0 Dehydration (principal); E11.65 Type 2 diabetes mellitus with hyperglycemia; I10 Essential (primary) hypertension; F41.9 Anxiety disorder, unspecified; I51.9 Heart disease, unspecified; Z79.899 Other long term (current) drug therapy
CPT/HCPCS: 36415; 80053; 82962; 85025; 87631; G0378; A9270-GY

== ENCOUNTER 2017-10-23 07:34 | Emergency (ER) | payer MEDICARE ==
--- NOTE | 2017-10-23 07:59 | ERPHSYRPT ---
- History of Present Illness Time Seen by Provider: 10/23/17 07:36 Source: patient, family Patient Subjective Stated Complaint: Pt states "I have not slept, I keep vomiting." Triage Nursing Assessment: Pt alert and oriented X 3, skin pwd. PT ambulates without any difficulty, able to speak in clear full sentences. PT moaning, anxious. Physician History: CC: headache/vomiting Hx: 72 y/o patient of Dr Quintero with hx of renal insuff, HTN, DM. She is a frequent habitor of abd pain and vomiting. She reports headache since last evening around 7PM followed by vomiting all night. No diarrhea. Not much abd pain. No fever or chills. She was unable to keep her medications down. She has no new focal weakness. 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 Vomiting is severe. No fall or injury. Timing/Duration: yesterday Severity: severe Allergies/Adverse Reactions: codeine [Codeine] Allergy (Severe, Verified 09/14/17 10:54) unsure propoxyphene HCl [From Darvon] Allergy (Severe, Verified 09/14/17 10:54) Tightness of Throat dabigatran etexilate [From Pradaxa] Allergy (Verified 09/14/17 10:54) vision loss Penicillins Allergy (Verified 09/14/17 10:54) unsure Home Medications: Gabapentin [Neurontin] 1,200 mg PO HS 06/10/17 [History] Nebivolol HCl 5 MG [Bystolic 5 MG] 5 tab PO DAILY 06/10/17 [History] Aspirin EC 81 mg [Ecotrin 81 mg] 81 mg PO DAILY 09/14/17 [History] Insulin Degludec [Tresiba Flextouch U-200] 24 unit SQ DAILY 09/14/17 [History] Lisinopril 20 mg PO DAILY 09/14/17 [History] Hx Tetanus, Diphtheria Vaccination/Date Given: Yes Hx Influenza Vaccination/Date Given: Yes Hx Pneumococcal Vaccination/Date Given: No Immunizations Up to Date: Yes - Review of Systems Constitutional: No Fever, No Chills Eyes: Vision Changes Respiratory: No Cough, No Dyspnea Cardiac: No Chest Pain, No Palpitations, No Syncope Abdominal/Gastrointestinal: Nausea, Vomiting, No Abdominal Pain, No Diarrhea Genitourinary Symptoms: No Dysuria Musculoskeletal: No Back Pain, No Neck Pain, No Fall, No Injury, No Joint Pain Skin: No Rash Neurological: Headache, No Focal Weakness, No Parasthesia, No Seizure All Other Systems: Reviewed and Negative - Past Medical History Pertinent Past Medical History: Yes Neurological History: Peripheral Neuropathy ENT History: No Pertinent History Cardiac History: Angina, Arrhythmia, Coronary Artery Disease, Hypertension Respiratory History: No Pertinent History Endocrine Medical History: Diabetes Type II Musculoskeletal History: Arthritis GI Medical History: No Pertinent History History: No Pertinent History Psycho-Social History: No Pertinent History Female Reproductive Disorders: No Pertinent History Other Medical History: afib, cryo to cervic for precancerous cells - Past Surgical History Past Surgical History: Yes Neuro Surgical History: No Pertinent History Cardiac: Cardiac Catheterization, Cardiac Stent Respiratory: No Pertinent History Gastrointestinal: No Pertinent History, Cholecystectomy Genitourinary: No Pertinent History Musculoskeletal: No Pertinent History Female Surgical History: Tubal Ligation Other Surgical History: skin grafts to upper thighs as a child - Social History Smoking Status: Never smoker Exposure to second hand smoke: Yes Alcohol Use: None Drug Use: none Patient Lives Alone: No Significant Family History: heart disease, diabetes - Female History Hx Last Menstrual Period: none - Nursing Vital Signs Nursing Vital Signs: Initial Vital Signs Temperature 97.5 F 10/23/17 07:42 Pulse Rate 68 10/23/17 07:42 Respiratory Rate 22 10/23/17 07:42 Blood Pressure 237/98 10/23/17 07:42 O2 Sat by Pulse Oximetry 98 10/23/17 07:42 Pain Scale Pain Intensity 4 - Physical Exam General Appearance: alert Eye Exam: PERRL/EOMI (small) Ears, Nose, Throat Exam: normal ENT inspection, dry mucous membranes Neck Exam: normal inspection, non-tender, supple Respiratory Exam: normal breath sounds, lungs clear Cardiovascular Exam: regular rate/rhythm, other (very hypertensive) Gastrointestinal/Abdomen Exam: soft, tenderness (mild diffuse discomfort), No distention, No mass, No guarding Neurologic Exam: alert, oriented x 3, cooperative, pharmacology associate II-XII nml as tested, sensation nml, No motor deficits Skin Exam: warm, dry, No rash SpO2 Interpretation: normal SpO2: 98 Oxygen Delivery: Room Air - Course Nursing assessment & vital signs reviewed: Yes EKG Interpreted by Me: RATE (58), Sinus Dre, NORMAL AXIS, prolonged QT interval (QTc 497), NORMAL ST-T - Radiology Exams cxr X-ray Interpretation: Teleradiologist Report (new bilateral infiltrates vs atelectasis) abd X-ray Interpretation: Teleradiologist Report (no obstr) - CT Exams head CT Interpretation: Negative, Tele-radiologist Report Ordered Tests: Active Orders 24 hr Category Date Time Status ACCUCHECK [Accucheck] STAT Care 10/23/17 07:59 Active Cath for Specimen-Straight STAT Care 10/23/17 07:53 Active EKG-ER Only STAT Care 10/23/17 07:52 Active IV Insertion STAT Care 10/23/17 07:52 Active NPO (ED) STAT Care 10/23/17 07:52 Active HEAD WITHOUT CONTRAST [CT] Stat Exams 10/23/17 07:54 Completed OBSTR/ACUTE ABDOMEN SERIES Stat Exams 10/23/17 07:53 Completed CBC W DIFF Stat Lab 10/23/17 07:57 Completed CMP Stat Lab 10/23/17 07:57 Completed LIPASE Stat Lab 10/23/17 07:57 Completed Lactic Acid Stat Lab 10/23/17 07:52 Completed Manual Differential NC Stat Lab 10/23/17 07:57 Completed NT PRO BNP Stat Lab 10/23/17 09:20 Ordered PROTIME WITH INR Stat Lab 10/23/17 07:57 Completed PTT Stat Lab 10/23/17 07:57 Completed TROPONIN Q3H Lab 10/23/17 09:30 Ordered TROPONIN Q3H Lab 10/23/17 12:30 Ordered TROPONIN Q3H Lab 10/23/17 15:30 Ordered TROPONIN Q3H Lab 10/23/17 18:30 Ordered TROPONIN Q3H Lab 10/23/17 21:30 Ordered UA W/RFX UR CULTURE Stat Lab 10/23/17 07:53 Ordered VENOUS BLOOD GAS Urgent Lab 10/23/17 07:53 Completed Medication Summary Generic Name Dose Route Start Last Admin Trade Name Freq PRN Reason Stop Dose Admin Sodium Chloride 1,000 mls @ 150 mls/hr 10/23/17 08:00 10/23/17 08:12 Sodium Chloride 0.9% 1000 Ml IV 11/22/17 07:59 150 mls/hr .Q6H40M ED Administration Discontinued Medications Generic Name Dose Route Start Last Admin Trade Name Freq PRN Reason Stop Dose Admin Diphenhydramine HCl 25 mg 10/23/17 07:52 10/23/17 08:12 Benadryl 50 Mg/Ml IV 10/23/17 07:53 25 mg STAT ONE Administration Diphenhydramine HCl Confirm 10/23/17 08:10 Benadryl 50 Mg/Ml Administered 10/23/17 08:11 Dose 50 mg .ROUTE .STK-MED ONE Enalaprilat 1.25 mg 10/23/17 07:55 10/23/17 08:11 Vasotec I.V. 2.5 Mg IV 10/23/17 07:56 1.25 mg STAT ONE Administration Enalaprilat Confirm 10/23/17 08:10 Vasotec I.V. 2.5 Mg Administered 10/23/17 08:11 Dose 2.5 mg IV .STK-MED ONE Hydralazine HCl 20 mg 10/23/17 09:17 10/23/17 09:24 Apresoline 20 Mg/Ml Inj IV 10/23/17 09:18 20 mg STAT ONE Administration Hydralazine HCl Confirm 10/23/17 09:23 Apresoline 20 Mg/Ml Inj Administered 10/23/17 09:24 Dose 20 mg .ROUTE .STK-MED ONE Hydromorphone HCl 1 mg 10/23/17 07:52 10/23/17 08:11 Hydromorphone 1 Mg/Ml Ampule IV 10/23/17 07:53 1 mg STAT ONE Administration Hydromorphone HCl Confirm 10/23/17 08:10 Hydromorphone 1 Mg/Ml Ampule Administered 10/23/17 08:11 Dose 1 mg .ROUTE .STK-MED ONE Labetalol HCl 20 mg 10/23/17 09:15 10/23/17 09:25 Trandate 20 Mg/5 Ml Syringe IV 10/23/17 09:16 Not Given STAT ONE Nitroglycerin 1 gm 10/23/17 09:29 Nitro-Bid 2% Ud Packets TOP 10/23/17 09:30 STAT ONE Ondansetron HCl 4 mg 10/23/17 07:52 10/23/17 08:11 Zofran 4 Mg/2 Ml Vial IV 10/23/17 07:53 4 mg STAT ONE Administration Ondansetron HCl Confirm 10/23/17 08:10 Zofran 4 Mg/2 Ml Vial Administered 10/23/17 08:11 Dose 4 mg .ROUTE .STK-MED ONE Lab/Rad Data: Laboratory Result Diagrams 10/23/17 07:57 10/23/17 07:57 Laboratory Results 10/23/17 10/23/17 10/23/17 Range/Units 07:57 07:57 07:57 WBC 8.7 (4.0-10.5) K/mm3 RBC 4.99 (4.1-5.4) M/mm3 Hgb 12.1 (12.0-16.0) gm/dl Hct 37.1 (35-47) % MCV 74.3 L (78-100) fl MCH 24.2 L (26-32) pg MCHC 32.6 (32-36) g/dl RDW 14.6 H (11.5-14.0) % Plt Count 168 (150-450) K/mm3 MPV 12.8 H (6-9.5) fl INR 1.05 (0.8-3.0) APTT 30.4 (25.3-37.0) SECONDS VBG pH (7.32-7.42) VBG pCO2 at Pat Temp (42-55) mm/Hg VBG pO2 at Pat Temp (25-40) mm/Hg VBG HCO3 (22-28) meq/L VBG O2 Sat (Kirstie) (95-100) VBG Base Excess (-2.0-2.0) VBG Hemoglobin VBG Carboxyhemoglobin (0.0-6.9) % T HGB POC Potassium (3.5-5.1) Sodium 146 H (136-145) mEq/L Potassium 3.2 L (3.5-5.1) mEq/L Chloride 114 H (98-107) mEq/L Carbon Dioxide 24.4 (21-32) mEq/L Anion Gap 11.0 (5-15) MEQ/L BUN 15 (9-20) mg/dL Creatinine 1.63 H (0.55-1.30) mg/dl Estimated GFR 33 ML/MIN Glucose 240 H (70-110) MG/DL Lactic Acid (0.4-2.0) Calcium 8.3 L (8.5-10.1) mg/dL Total Bilirubin 0.20 (0.2-1.0) mg/dL AST 22 (15-37) U/L ALT 19 (12-78) U/L Alkaline Phosphatase 67 (46-116) U/L Serum Total Protein 5.4 L (6.4-8.2) gm/dL Albumin 1.6 L (3.4-5.0) g/dL Lipase 79 (73-393) U/L 10/23/17 10/23/17 Range/Units 07:53 07:52 WBC (4.0-10.5) K/mm3 RBC (4.1-5.4) M/mm3 Hgb (12.0-16.0) gm/dl Hct (35-47) % MCV (78-100) fl MCH (26-32) pg MCHC (32-36) g/dl RDW (11.5-14.0) % Plt Count (150-450) K/mm3 MPV (6-9.5) fl INR (0.8-3.0) APTT (25.3-37.0) SECONDS VBG pH 7.39 (7.32-7.42) VBG pCO2 at Pat Temp 42 (42-55) mm/Hg VBG pO2 at Pat Temp 23 L (25-40) mm/Hg VBG HCO3 25.4 (22-28) meq/L VBG O2 Sat (Kirstie) 51.5 L (95-100) VBG Base Excess 0.3 (-2.0-2.0) VBG Hemoglobin 11.7 VBG Carboxyhemoglobin 2.4 (0.0-6.9) % T HGB POC Potassium 3.0 L* (3.5-5.1) Sodium (136-145) mEq/L Potassium (3.5-5.1) mEq/L Chloride (98-107) mEq/L Carbon Dioxide (21-32) mEq/L Anion Gap (5-15) MEQ/L BUN (9-20) mg/dL Creatinine (0.55-1.30) mg/dl Estimated GFR ML/MIN Glucose (70-110) MG/DL Lactic Acid 1.0 (0.4-2.0) Calcium (8.5-10.1) mg/dL Total Bilirubin (0.2-1.0) mg/dL AST (15-37) U/L ALT (12-78) U/L Alkaline Phosphatase (46-116) U/L Serum Total Protein (6.4-8.2) gm/dL Albumin (3.4-5.0) g/dL Lipase (73-393) U/L - Progress Progress Note: 10/23/17 09:35 She feels much better. KWON gone. BP still elevated. IV vasotec given. IV hydralazine given. Called Dr Quintero who advised transfer to [facility] under Dr Masha Jefferson and start NTG paste. Pt and family aware. Counseled pt/family regarding: lab results, diagnosis, need for follow-up, rad results - Departure Time of Disposition: 09:36 Departure Disposition: Transfer ([facility]) Clinical Impression: Hypertensive urgency, Type 2 diabetes mellitus, Headache, Vomiting Condition: Fair Critical Care Time: Yes Critical Care Time(excluding separately billable procedures): 30-74 minutes Referrals: CANDIE QUINTERO MD [Primary Care Provider] -
[2017-10-23] MEDS ORDERED: Zofran 4 MG/2 ML VIAL ONE (08:10)
[2017-10-23] MEDS ORDERED: Hydromorphone 1 mg/ml Ampule ONE (08:10)
[2017-10-23] MEDS ORDERED: BENADRYL 50 MG/ML ONE (08:10)
[2017-10-23] MEDS ORDERED: VASOTEC I.V. 2.5 MG IV ONE (08:10)
[2017-10-23] MEDS ORDERED: Sodium Chloride 0.9% 1000 ML 1,000 ML ONE (08:10)
[2017-10-23] MEDS: VASOTEC I.V. 2.5 MG IV ONE (08:11)
[2017-10-23] MEDS: Zofran 4 MG/2 ML VIAL IV ONE (08:11)
[2017-10-23] MEDS: Hydromorphone 1 mg/ml Ampule IV ONE (08:11)
[2017-10-23] MEDS: Sodium Chloride 0.9% 1000 ML 1,000 ML IV SCH (08:12)
[2017-10-23] MEDS: BENADRYL 50 MG/ML IV ONE (08:12)
[2017-10-23 08:16] LABS: Granulocyte Absolute (ANC) 7.23 (1.4-6.9); Hematocrit 37.1 % (35-47); Hemoglobin 12.1 gm/dl (12.0-16.0); Mean Cell Volume 74.3 fl (78-100); Mean Corpuscular Hemoglobin 24.2 pg (26-32); Mean Corpuscular Hgb Concent. 32.6 g/dl (32-36); Mean Platelet Volume 12.8 fl (6-9.5); Platelet Count 168 K/mm3 (150-450); Red Blood Count 4.99 M/mm3 (4.1-5.4); Red Cell Distribution Width 14.6 % (11.5-14.0); White Blood Count 8.7 K/mm3 (4.0-10.5)
[2017-10-23 08:18] LABS: VBG BASE EXCESS 0.3 (-2.0-2.0); VBG CARBOXYHEMOGLOBIN 2.4 % T HGB (0.0-6.9); VBG HCO3- 25.4 meq/L (22-28); VBG HEMOGLOBIN 11.7; VBG O2 SATURATION 51.5 (95-100); VBG pH 7.39 (7.32-7.42)
[2017-10-23 08:33] LABS: INR 1.05 (0.8-3.0)
[2017-10-23 08:36] LABS: PTT 30.4 SECONDS (25.3-37.0)
[2017-10-23 08:40] LABS: ALBUMIN 1.6 g/dL (3.4-5.0); BILIRUBIN,TOTAL 0.2 mg/dL (0.2-1.0); Calcium 8.3 mg/dL (8.5-10.1); Carbon Dioxide 24.4 mEq/L (21-32); Creatinine 1 1.63 mg/dl (0.55-1.30); Potassium 3.2 mEq/L (3.5-5.1); Total Protein 5.4 gm/dL (6.4-8.2)
--- NOTE | 2017-10-23 09:05 | XRAY ---
Indication: Abdominal pain and nausea. Comparison: Chest exam June 10, 2017. 2 views of the abdomen nonacute and nonobstructed with cholecystectomy clips and heavy scattered vascular calcifications. Solid organs unremarkable. Osseous structures intact with moderate degenerative changes throughout the spine and mild dextrorotoscoliosis. Single AP chest demonstrates new bilateral mid to lower lung infiltrates versus atelectasis. No consolidation or large effusion. Heart is not enlarged. Bony thorax intact with mild degenerative changes. Impression: 1. Negative abdomen with chronic features. 2. New bilateral infiltrates/atelectasis. Correlate clinically
--- NOTE | 2017-10-23 09:09 | XRAY ---
Indication: Headache. Multiple contiguous axial images obtained through the head without contrast. Comparison: March 12, 2016. Ventriculosulcal pattern appears symmetric. No acute intracranial hemorrhage, abnormal extra-axial fluid collection, or mass effect. Fourth ventricle is midline without hydrocephalus. Talley-white matter differentiation preserved. Bony calvarium intact. Visualized paranasal sinuses and mastoid air cells are clear. Impression: Stable normal CT head without contrast exam. CT DI 68.51
[2017-10-23] MEDS ORDERED: APRESOLINE 20 MG/ML INJ ONE (09:23)
[2017-10-23] MEDS: APRESOLINE 20 MG/ML INJ IV ONE (09:24)
[2017-10-23] MEDS: TRANDATE 20 MG/5 ML SYRINGE IV ONE (09:25)
[2017-10-23] MEDS ORDERED: NITRO-BID 2% UD PACKETS ONE (09:42)
[2017-10-23] MEDS: NITRO-BID 2% UD PACKETS TOP ONE (09:43)
[2017-10-23 10:03] LABS: ABSOLUTE NEUTROPHILS 6.98 (1.4-6.9); ANISOCYTOSIS 1+; Lymphocytes 18 % (24-44); Monocyte 2 % (0.0-12.0); Neutrophils 80 % (36.0-66.0); Platelet Estimate NORMAL (NORMAL); Total Cells Counted 100
[2017-10-23] MEDS ORDERED: Reglan 10 MG/2 ML ONE (10:26)
[2017-10-23] MEDS: Reglan 10 MG/2 ML IV ONE (10:27)
[2017-10-23 10:31] LABS: Appearance CLOUDY (CLEAR); Bilirubin NEGATIVE (NEGATIVE); Blood 250 Ery/ul (0-5); Glucose 500 mg/dL (NEGATIVE); Ketones NEGATIVE (NEGATIVE); Leukocyte Esterase NEGATIVE (NEGATIVE); Mucus MODERATE /HPF (NEGATIVE); Nitrite NEGATIVE (NEGATIVE); Protein,Urine Dip 300 (Negative); Urobilinogen NORMAL mg/dL (0-1)
[2017-10-23 10:32] LABS: Amourphous Crystal MODERATE /HPF (NEGATIVE); Bacteria FEW /HPF (NEGATIVE); Epithelial Cells FEW /HPF (FEW); WBC 0-2 /HPF (0-5)
[2017-10-23 11:39] VITALS: BP 178/75
[2017-10-23 11:57] VITALS: PULSE 70; O2SAT 98
== END 2017-10-23 12:30 | disposition short-term general hospital (02) ==
LOC: ED 07:34
DX: I16.0 Hypertensive urgency (principal); E11.9 Type 2 diabetes mellitus without complications; Z79.4 Long term (current) use of insulin; R51 Headache; R11.10 Vomiting, unspecified; I10 Essential (primary) hypertension; Z79.899 Other long term (current) drug therapy; G62.9 Polyneuropathy, unspecified; I48.91 Unspecified atrial fibrillation; I25.10 Atherosclerotic heart disease of native coronary artery without angina pectoris; M19.90 Unspecified osteoarthritis, unspecified site
CPT/HCPCS: 96374; 99285; 36000; 82962; 96360; 96361; 93005; 81000; 85610; 85730; 36415; 83690; 83880; 85025; 80053; 84484; 74022; 70450; 82805; 83605; P9612; 96375; 96376; J0360; J1170; J1200; J2405; A9270-GY

== ENCOUNTER 2017-11-04 20:23 | Observation (INO) | payer MEDICARE ==
[2017-11-04] MEDS ORDERED: Sodium Chloride 0.9% 1000 ML 1,000 ML IV STA (20:26)
[2017-11-04] MEDS ORDERED: Phenergan 25 MG INJ IV ONE (20:26)
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
[2017-11-04 20:47] LABS: BASOPHIL % 1.2 % (0.0-0.4); Basophil (Absolute #) 0.08 (0-0.4); Eosinophil % 2.1 % (0.00-5.0); Eosinophil (Absolute #) 0.14 (0-0.5); Granulocyte Absolute (ANC) 4.84 (1.4-6.9); Granulocytes % 71.6 % (36.0-66.0); Hemoglobin 10.7 gm/dl (12.0-16.0); Lymphocyte (Absolute #) 0.96 (1.0-4.6); Lymphocytes % 14.2 % (24.0-44.0); Mean Cell Volume 77.3 fl (78-100); Mean Corpuscular Hemoglobin 24.3 pg (26-32); Mean Corpuscular Hgb Concent. 31.5 g/dl (32-36); Mean Platelet Volume 13.1 fl (6-9.5); Monocyte (Absolute #) 0.74 (0.0-1.3); Monocytes % 10.9 % (0.0-12.0); Platelet Count 158 K/mm3 (150-450); Red Cell Distribution Width 14.9 % (11.5-14.0); White Blood Count 6.8 K/mm3 (4.0-10.5)
[2017-11-04] MEDS ORDERED: Phenergan 25 MG INJ ONE (20:50)
[2017-11-04] MEDS ORDERED: Sodium Chloride 0.9% 1000 ML 1,000 ML ONE (20:50)
[2017-11-04] MEDS ORDERED: Catapres 0.1 MG PO ONE (21:05)
[2017-11-04] MEDS ORDERED: Catapres 0.1 MG ONE (21:06)
[2017-11-04 21:12] LABS: ALBUMIN 1.7 g/dL (3.4-5.0); ANION GAP 10.5 MEQ/L (5-15); BILIRUBIN,TOTAL 0.2 mg/dL (0.2-1.0); Calcium 8.2 mg/dL (8.5-10.1); Carbon Dioxide 24.7 mEq/L (21-32); Creatinine 1 1.43 mg/dl (0.55-1.30); Potassium 3.9 mEq/L (3.5-5.1); Total Protein 5.1 gm/dL (6.4-8.2)
[2017-11-04 21:44] LABS: Appearance CLEAR (CLEAR); Bacteria FEW /HPF (NEGATIVE); Bilirubin NEGATIVE (NEGATIVE); Blood 250 Ery/ul (0-5); Epithelial Cells RARE /HPF (FEW); Glucose 250 mg/dL (NEGATIVE); Ketones NEGATIVE (NEGATIVE); Leukocyte Esterase NEGATIVE (NEGATIVE); Mucus SLIGHT /HPF (NEGATIVE); Nitrite NEGATIVE (NEGATIVE); Protein,Urine Dip 500 (Negative); Urobilinogen NORMAL mg/dL (0-1); WBC 0-2 /HPF (0-5)
[2017-11-04] MEDS ORDERED: Nitrostat 0.4 MG (ED) SL ONE ×2 (21:53→21:58)
[2017-11-05] MEDS ORDERED: Nitrostat 0.4 MG (ED) SL ONE ×2 (00:28→06:21)
[2017-11-05] MEDS ORDERED: Phenergan 25 MG INJ IV PRN (00:43)
[2017-11-05] MEDS ORDERED: MORPHINE SULFATE 2 MG INJ IV PRN (00:43)
[2017-11-05] MEDS: Sodium Chloride 0.9% 1000 ML 1,000 ML IV SCH ×3 (01:39→21:55)
[2017-11-05 05:42] LABS: BASOPHIL % 0.6 % (0.0-0.4); Basophil (Absolute #) 0.03 (0-0.4); Eosinophil % 2.9 % (0.00-5.0); Eosinophil (Absolute #) 0.14 (0-0.5); Granulocyte Absolute (ANC) 3.09 (1.4-6.9); Granulocytes % 63.5 % (36.0-66.0); Hematocrit 29.1 % (35-47); Hemoglobin 8.7 gm/dl (12.0-16.0); Lymphocyte (Absolute #) 1.13 (1.0-4.6); Lymphocytes % 23.3 % (24.0-44.0); Mean Cell Volume 79.5 fl (78-100); Mean Corpuscular Hgb Concent. 29.9 g/dl (32-36); Mean Platelet Volume 13.2 fl (6-9.5); Monocyte (Absolute #) 0.47 (0.0-1.3); Monocytes % 9.7 % (0.0-12.0); Platelet Count 118 K/mm3 (150-450); Red Blood Count 3.66 M/mm3 (4.1-5.4); Red Cell Distribution Width 14.9 % (11.5-14.0); White Blood Count 4.9 K/mm3 (4.0-10.5)
[2017-11-05 05:56] LABS: Mean Corpuscular Hemoglobin 23.7 pg (26-32)
[2017-11-05 06:26] LABS: ALBUMIN 1.3 g/dL (3.4-5.0); ANION GAP 6.2 MEQ/L (5-15); BILIRUBIN,TOTAL 0.2 mg/dL (0.2-1.0); Calcium 7.9 mg/dL (8.5-10.1); Carbon Dioxide 28.3 mEq/L (21-32); Creatinine 1 1.47 mg/dl (0.55-1.30); Potassium 4.5 mEq/L (3.5-5.1); Total Protein 4.1 gm/dL (6.4-8.2)
--- NOTE | 2017-11-05 08:49 | XRAY ---
Indication: Abdominal pain. Multiple contiguous axial images obtained through the abdomen and pelvis without contrast as ordered. Comparison: June 11, 2017. Lung bases demonstrate increasing moderate bibasilar dependent effusions with compressive atelectasis. Heart is not enlarged. Stable mild anasarca. Head and uncinate process of the pancreas now demonstrates mild peripancreatic stranding possible mild/early pancreatitis. Tiny right colic free fluid. No walled off fluid collection or free air. Noncontrasted stomach and bowel loops appear nonobstructed. Normal appendix. Again scattered colonic diverticulosis without diverticulitis and previous cholecystectomy. Remaining liver, pancreas, spleen, adrenal glands, kidneys, ureters, bladder, and uterus appear unremarkable for noncontrast exam. There remains mild aortoiliac calcifications without AAA. Osseous structures intact again with mild degenerative changes throughout the spine. Impression: 1. New CT findings favoring pancreatitis with tiny right colic free fluid. 2. Increasing moderate bibasilar pleural effusions/atelectasis without cardiomegaly. 3. Stable colonic diverticulosis and mild anasarca. Comment: Preliminary interpretation was made by [facility]. No discrepancy. CTDI 22.62
[2017-11-05] MEDS: NovoLOG Insulin SQ PRN ×2 (09:02→20:10)
[2017-11-05] MEDS ORDERED: [UNRECOGNIZED DRUG - OTHER] PO SCH (10:00)
[2017-11-05] MEDS ORDERED: INSULIN DEGLUDEC 25 UNIT SQ SCH (10:00)
[2017-11-05] MEDS ORDERED: MEDICATION INTERVENTION MC SCH (10:15)
[2017-11-05] MEDS: hydroDIURIL 25 MG PO SCH ×2 (10:37→10:38)
[2017-11-05] MEDS: Aldactone 25 MG PO SCH (10:37)
[2017-11-05] MEDS: Zestril 20 MG PO SCH (10:38)
[2017-11-05] MEDS: ECOTRIN 81 MG PO SCH (10:38)
[2017-11-05] MEDS: Trandate 100 MG PO SCH ×2 (10:52→21:16)
[2017-11-05] MEDS: ELIQUIS PO SCH ×2 (10:52→21:16)
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
[2017-11-05] MEDS ORDERED: Trandate 100 MG PO ONE (16:25)
[2017-11-05] MEDS ORDERED: ELIQUIS PO SCH (22:00)
[2017-11-05] MEDS ORDERED: LABETALOL HCL 200 MG PO SCH (22:00)
[2017-11-06] MEDS: Sodium Chloride 0.9% 1000 ML 1,000 ML IV SCH (07:58)
[2017-11-06] MEDS: Trandate 100 MG PO SCH (09:20)
[2017-11-06] MEDS: ECOTRIN 81 MG PO SCH (09:20)
[2017-11-06] MEDS: hydroDIURIL 25 MG PO SCH ×4 (09:20→09:33)
[2017-11-06] MEDS: ELIQUIS PO SCH (09:20)
[2017-11-06] MEDS: Zestril 20 MG PO SCH (09:20)
[2017-11-06] MEDS: Aldactone 25 MG PO SCH (09:20)
[2017-11-06] MEDS: NovoLOG Insulin SQ PRN (11:04)
[2017-11-06 12:30] VITALS: BP 168/70; PULSE 78; O2SAT 96
--- NOTE | 2017-11-06 12:46 | PCM.DS ---
Discharge Summary Date of Admission: 11/05/17 00:39 Admitting Physician: CANDIE QUINTERO Primary Care Provider: CANDIE QUINTERO Allergies Allergies codeine [Codeine] Allergy (Severe, Verified 11/04/17 22:15) unsure propoxyphene HCl [From Darvon] Allergy (Severe, Verified 11/04/17 22:15) Tightness of Throat dabigatran etexilate [From Pradaxa] Allergy (Verified 11/04/17 22:15) vision loss Penicillins Allergy (Verified 11/04/17 22:15) unsure sertraline Adverse Reaction (Intermediate, Verified 11/05/17 10:01) hallucinations Hospital Summary - Hospital Course Hospital Course: Chief Complaint Diagnosis abd pain for 2-3 days Allergies Allergy/AdvReac Type Severity Reaction Status Date / Time codeine [Codeine] Allergy Severe Verified 11/04/17 22:15 propoxyphene HCl Allergy Severe Tightness Verified 11/04/17 22:15 [From Darvon] of Throat dabigatran etexilate Allergy Verified 11/04/17 22:15 [From Pradaxa] Penicillins Allergy Verified 11/04/17 22:15 sertraline AdvReac Intermediate Verified 11/05/17 10:01 Vital Signs (Last 24 hours) Temp Pulse Resp BP Pulse Ox 11/06/17 12:29 98 F 78 18 168/70 96 11/06/17 07:12 98 F 84 20 170/78 95 11/06/17 04:44 95 11/06/17 04:00 98.7 F 66 18 176/74 95 11/06/17 00:00 98.7 F 65 18 174/71 92 L 11/05/17 20:00 97.7 F 61 20 145/90 91 L 11/05/17 16:00 98.5 F 63 18 210/78 93 L Home Medications Medication Instructions Recorded Confirmed Last Taken Type Apixaban [Eliquis] 1 tab PO BID 11/05/17 11/05/17 11/04/17 History Hydrochlorothiazide 25 mg 25 mg PO DAILY 11/05/17 11/05/17 11/04/17 History [hydroDIURIL 25 MG] Labetalol HCl 200 mg PO BID 11/05/17 11/05/1718 History Spironolact/Hydrochlorothiazid 1 tab PO DAILY 11/05/17 11/05/17 11/04/17 History [Spironolactone-Hctz 25-25 Tab] Current Medications Generic Name Dose Route Start Last Admin Trade Name Freq PRN Reason Stop Dose Admin Apixaban 5 mg 11/05/17 10:00 11/06/17 09:20 Eliquis PO 12/05/17 09:59 5 mg BID ED Administration Aspirin 81 mg 11/05/17 10:00 11/06/17 09:20 Ecotrin 81 Mg PO 12/05/17 09:59 81 mg DAILY ED Administration Hydrochlorothiazide 25 mg 11/05/17 10:00 11/06/17 09:33 Hydrodiuril 25 Mg PO 12/05/17 09:59 25 mg DAILY ED Administration Hydrochlorothiazide 25 mg 11/05/17 10:00 11/06/17 09:22 Hydrodiuril 25 Mg PO 12/05/17 09:59 25 mg QAM ED Administration Sodium Chloride 1,000 mls @ 100 mls/hr 11/05/17 00:43 11/06/17 07:58 Sodium Chloride 0.9% 1000 Ml IV 12/05/17 00:42 100 mls/hr .Q10H ED Administration Insulin Aspart 0 unit 11/05/17 00:43 11/06/17 11:04 Novolog Insulin SQ 12/05/17 00:42 2 unit UD PRN Administration HYPERGLYCEMIA Labetalol HCl 200 mg 11/05/17 11:00 11/06/17 09:20 Trandate 100 Mg PO 12/05/17 10:59 200 mg BID ED Administration Lisinopril 20 mg 11/05/17 10:00 11/06/17 09:20 Zestril 20 Mg PO 12/05/17 09:59 20 mg DAILY ED Administration Morphine Sulfate 2 mg 11/05/17 00:43 Morphine Sulfate 2 Mg Inj IV 11/10/17 00:42 Q4H PRN PRN PAIN Promethazine HCl 12.5 mg 11/05/17 00:43 Phenergan 25 Mg Inj IV 12/05/17 00:42 Q6H PRN PRN NAUSEA/VOMITING Spironolactone 25 mg 11/05/17 10:00 11/06/17 09:20 Aldactone 25 Mg PO 12/05/17 09:59 25 mg QAM ED Administration Discontinued Medications Generic Name Dose Route Start Last Admin Trade Name Freq PRN Reason Stop Dose Admin Clonidine 0.1 mg 11/04/17 21:05 11/04/17 21:07 Catapres 0.1 Mg PO 11/04/17 21:06 0.1 mg STAT ONE Administration Clonidine Confirm 11/04/17 21:06 Catapres 0.1 Mg Administered 11/04/17 21:07 Dose 0.1 mg .ROUTE .STK-MED ONE Sodium Chloride 1,000 mls @ 999 mls/hr 11/04/17 20:26 11/04/17 20:51 Sodium Chloride 0.9% 1000 Ml IV 11/04/17 21:26 999 mls/hr .Q1H1M STA Administration Sodium Chloride Confirm 11/04/17 20:50 Sodium Chloride 0.9% 1000 Ml Administered 11/04/17 20:51 Dose 1,000 mls @ ud .ROUTE .STK-MED ONE Labetalol HCl 200 mg 11/05/17 16:25 11/05/17 17:01 Trandate 100 Mg PO 11/05/17 16:26 200 mg ONCE ONE Administration Nitroglycerin 0.4 mg 11/04/17 21:53 11/04/17 21:59 Nitrostat 0.4 Mg (Ed) SL 11/04/17 21:54 0.4 mg STAT ONE Administration Nitroglycerin Confirm 11/04/17 21:58 Nitrostat 0.4 Mg (Ed) Administered 11/04/17 21:59 Dose 0.4 mg SL .STK-MED ONE Nitroglycerin 0.4 mg 11/05/17 00:28 11/05/17 00:45 Nitrostat 0.4 Mg (Ed) SL 11/05/17 00:29 0.4 mg STAT ONE Administration Nitroglycerin Confirm 11/05/17 06:21 Nitrostat 0.4 Mg (Ed) Administered 11/05/17 06:22 Dose 0.4 mg SL .STK-MED ONE Promethazine HCl .5 mg 11/04/17 20:26 11/04/17 20:51 Phenergan 25 Mg Inj IV 11/04/17 20:27 12.5 mg STAT ONE Administration Promethazine HCl Confirm 11/04/17 20:50 Phenergan 25 Mg Inj Administered 11/04/17 20:51 Dose 25 mg .ROUTE .STK-MED ONE Intake & Output (Last 24 hours) 11/04/17 11/05/17 11/06/17 11/07/17 11:59 11:59 11:59 11:59 Intake Total 3443 Output Total 800 Balance 2643 Weight 86 kg 87 kg Microbiology Results (Last 24 hours) 11/04/17 21:30 Urine, Void - Final NO GROWTH Orders (Last 24 hours) Category Date Time Status Soft Diet Diet 11/05/17 Dinner Active Labetalol HCl 100 mg [Trandate 100 MG] Med 11/05/17 16:25 Discontinued 200 mg PO ONCE ONE Oxygen NASAL CANNULA 2 lpm RT 11/06/17 04:43 Active Patient Care Notes (Last 24 hours) 11/06/17 04:41 Respiratory Note by Mariela Donaldson NURSE CALLED, PT'S SATS 87% ON ROOM AIR. I CHECKED THE PT'S. SATS 90% ON AIR ROOM. PLACED ON 2L OXYGEN. SATS UP TO 95%. Initialized on 11/06/17 04:41 - END OF NOTE 11/06/17 04:38 Nursing Note by Tanya Novoa, NOLBERTO was getting vitals and reported that patient O2 sat 88 RA. Mariela RT was notified and put patient on 2L NC. Sat up to 95%. Initialized on 11/06/17 04:38 - END OF NOTE 11/05/17 13:05 (created 11/05/17 13:30) Case Management Note by Caroline Monzon DR. ROUNDED AND EVALUATED, DISCUSSED PLAN OF CARE WITH PT, ENCOURAGED PT TO GO TO REHAB STAY AT [facility] ON DISCHARGE, PT REPORTS THAT SHE HAS HAD FALLS AT HOME. PT REPORTS THAT SHE WILL NOT GO TO [facility] FOR REHAB STAY, REPORTS THAT SHE HAS PLENTY OF FAMILY FOR ASSIST ON DISCHARGE. PT IN AGREEMENT TO PLAN OF CARE, ABLE TO REPEAT INFORMATION BACK. ALL QUESTIONS ANSWERED. DR. QUINTERO DISCUSSED WITH PT THAT THEY WOULD START SOFT DIET, IF ABLE TO TOLERATE PT WOULD DC HOME TOMORROW. Initialized on 11/05/17 13:30 - END OF NOTE - Vitals & Intake/Output Vital Signs: Vital Signs Temperature 98 F 11/06/17 12:29 Pulse Rate 78 11/06/17 12:29 Respiratory Rate 18 11/06/17 12:29 Blood Pressure 168/70 11/06/17 12:29 O2 Sat by Pulse Oximetry 96 11/06/17 12:29 Intake & Output: Intake & Output 11/04/17 11/05/17 11/06/17 11/07/17 11:59 11:59 11:59 11:59 Intake Total 3443 Output Total 800 Balance 2643 Weight 86 kg 87 kg - Lab Result Diagrams: 11/05/17 05:20 11/05/17 05:20 Lab Results-Last 24 Hrs: Accuchecks Date 11/06/17 Date 11/06/17 Date 11/06/17 Date 11/06/17 Date 11/06/17 Time 11:00 Time 07:57 Accucheck Value: 213 Accucheck Value: 144 Accucheck Value: 135 Accucheck Value: 151 Accucheck Value: 216 Accucheck Value: 170 Micro Results-Entire Visit: Accuchecks Date 11/06/1711/06/1711/06/17 Date 11/06/17 Date 11/06/17 Time 11:00 Time 07:57 Accucheck Value: 213 Accucheck Value: 144 Accucheck Value: 135 Accucheck Value: 151 Accucheck Value: 216 Accucheck Value: 170 - Procedures and Test Procedures and Tests throughout Hospitalization: Therapy Orders & Screens 11/06/17 04:43 Oxygen NASAL CANNULA 2 lpm Comment: Diagnosis: abd pain for 2-3 days Discharge Exam General Appearance: no apparent distress, alert Neurologic Exam: alert, oriented x 3, cooperative, normal mood/affect, nml cerebellar function, sensation nml, No motor deficits Skin Exam: normal color, warm, dry Eye Exam: PERRL, EOMI, eyes nml inspection Ears, Nose, Throat Exam: normal ENT inspection, pharynx normal, moist mucous membranes Neck Exam: normal inspection, non-tender, supple, full range of motion Respiratory Exam: normal breath sounds, lungs clear, No respiratory distress Cardiovascular Exam: regular rate/rhythm, normal heart sounds Gastrointestinal/Abdomen Exam: soft, No tenderness, No mass Extremity Exam: normal inspection, normal range of motion Back Exam: normal inspection, normal range of motion, No CVA tenderness, No vertebral tenderness Pelvic Exam: deferred Rectal Exam: deferred Final Diagnosis/Problem List - Final Discharge Diagnosis/Problem (1) Acute pancreatitis Current Visit: Yes Status: Resolved (2) Abdominal pain Current Visit: Yes Status: Resolved (3) Uncontrolled diabetes mellitus Current Visit: Yes Status: Chronic (4) Uncontrolled hypertension Current Visit: Yes Status: Chronic - Discharge Discharge Date: 11/06/17 Disposition: Home, Self-Care Condition: Stable Prescriptions: Continue Lisinopril 20 mg PO DAILY Insulin Degludec [Tresiba Flextouch U-200] 25 unit SQ DAILY Aspirin EC 81 mg [Ecotrin 81 mg] 81 mg PO DAILY Hydrochlorothiazide 25 mg [hydroDIURIL 25 MG] 25 mg PO DAILY Spironolact/Hydrochlorothiazid [Spironolactone-Hctz 25-25 Tab] 1 tab PO DAILY Apixaban [Eliquis] 1 tab PO BID Labetalol HCl 200 mg PO BID Follow up with: CANDIE QUINTERO MD [Primary Care Provider] -
== END 2017-11-06 13:30 | disposition home or self-care (01) ==
LOC: ED 20:23 → MED SURG 11-05 00:39
PROVIDERS: ADMIT General Practice; ATTEND General Practice
DX: K85.90 Acute pancreatitis without necrosis or infection, unspecified (principal); E11.65 Type 2 diabetes mellitus with hyperglycemia; Z79.4 Long term (current) use of insulin; I10 Essential (primary) hypertension; G62.9 Polyneuropathy, unspecified; I25.10 Atherosclerotic heart disease of native coronary artery without angina pectoris; M19.90 Unspecified osteoarthritis, unspecified site
CPT/HCPCS: 82962 ×2; 93268 ×2; 93041; 96374; 99285; 96360; 82150 ×2; 81000; 36415; 83036; 83690 ×2; 83735; 85025 ×2; 80053 ×2; 87086; 74176; 94760; P9612; G0378; J2550; A9270-GY

== ENCOUNTER 2018-08-20 19:09 | Emergency (ER) | payer MEDICARE ==
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
[2018-08-20] MEDS ORDERED: PROVENTIL 2.5 MG/3 ML NEB IH ONE (19:36)
[2018-08-20] MEDS: PROVENTIL 2.5 MG/3 ML NEB IH ONE (19:37)
[2018-08-20 20:05] LABS: BASOPHIL % 0.7 % (0.0-0.4); Basophil (Absolute #) 0.05 (0-0.4); Eosinophil (Absolute #) 0.14 (0-0.5); Granulocyte Absolute (ANC) 5.48 (1.4-6.9); Granulocytes % 79.4 % (36.0-66.0); Hematocrit 29.6 % (35-47); Hemoglobin 9.3 gm/dl (12.0-16.0); Lymphocyte (Absolute #) 0.68 (1.0-4.6); Lymphocytes % 9.8 % (24.0-44.0); Mean Cell Volume 80.9 fl (78-100); Mean Corpuscular Hemoglobin 25.4 pg (26-32); Mean Corpuscular Hgb Concent. 31.4 g/dl (32-36); Mean Platelet Volume 13.7 fl (6-9.5); Monocyte (Absolute #) 0.56 (0.0-1.3); Monocytes % 8.1 % (0.0-12.0); Platelet Count 107 K/mm3 (150-450); Red Blood Count 3.66 M/mm3 (4.1-5.4); Red Cell Distribution Width 14.9 % (11.5-14.0); White Blood Count 6.9 K/mm3 (4.0-10.5)
[2018-08-20 20:31] LABS: ALBUMIN 2.8 g/dL (3.5-5.0); ANION GAP 9.8 MEQ/L (5-15); BILIRUBIN,TOTAL 0.3 mg/dL (0.2-1.3); Calcium 8.8 mg/dL (8.4-10.2); Creatinine 1 3.02 mg/dL (0.52-1.04); Potassium 4.5 mmol/L (3.5-5.1); Total Protein 5.6 g/dL (6.3-8.2)
[2018-08-20] MEDS: Trandate 100 MG PO ONE (20:47)
[2018-08-20] MEDS: Coreg 6.25 MG PO STA (20:47)
[2018-08-20 20:54] LABS: INFLUENZA A NEGATIVE (NEGATIVE); INFLUENZA B NEGATIVE (NEGATIVE); RESPIRATORY SYNCTIAL VIRUS NEGATIVE (Negative)
[2018-08-20] MEDS ORDERED: Zofran 4 MG/2 ML VIAL ONE (21:07)
[2018-08-20] MEDS: Zofran 4 MG/2 ML VIAL IV ONE (21:08)
[2018-08-20] MEDS ORDERED: Lasix 40 MG/4 ML ONE (21:22)
[2018-08-20] MEDS: Lasix 40 MG/4 ML IV ONE (21:23)
[2018-08-20 22:28] VITALS: BP 190/68; PULSE 61; O2SAT 98
[2018-08-21 03:08] LABS: Slide Review 1 YES
--- NOTE | 2018-08-21 18:57 | XRAY ---
Exam: AP portable chest film from 08/20/2018. Comparison: Frontal chest film from acute abdominal series from 10/23/2017. Indication: 73-year-old female with cough, hypertension, chest pain, and nausea. Findings: The transverse heart size appears within normal limits. The lungs are mildly hypoinflated. A calcified, slightly tortuous aortic arch and descending thoracic aorta are seen. Mild chronic central bronchial wall thickening is seen within the jeanine. Multiple EKG leads are seen in place. No air space infiltrates, vascular congestion, pneumothorax, or pleural fluid is seen. There is a suggestion of some minimal chronic linear scarring or atelectasis at both lung bases. However, this is significantly improved from 10/23/2017, at which time there was bibasilar airspace disease. Also, there is a potential 1.3 cm in diameter nodule within the central left upper lung field which is not seen on the prior exam. I would consider a follow-up PA and lateral chest film for further evaluation. If this persists, a CT of the chest with IV contrast would be advised. No acute osseous process is seen. Surgical clips consistent with prior cholecystectomy are seen. Impression: 1. Mildly hypoinflated chest with minimal scattered bibasilar linear scarring and/or atelectasis. No definite airspace infiltrate is seen. 2. However, I cannot exclude a 1.3 cm long nodule within the central left upper lung field in the left suprahilar projection. This is not definitely seen on prior studies. See above recommendations.
== END 2018-08-20 22:20 | disposition short-term general hospital (02) ==
LOC: ED 19:09
DX: I50.9 Heart failure, unspecified (principal); I10 Essential (primary) hypertension; N17.9 Acute kidney failure, unspecified; I48.2 Chronic atrial fibrillation; Z79.01 Long term (current) use of anticoagulants; Z79.899 Other long term (current) drug therapy; E11.9 Type 2 diabetes mellitus without complications; Z79.4 Long term (current) use of insulin
CPT/HCPCS: 36000; 36415; 71045; 80053; 83605; 83880; 84484; 85025; 87040; 87631; 93005; 93041; 94150; 94640; 96374; 96375; 99285; J1940; J2405; J7609; A9270-GY

== ENCOUNTER 2018-09-30 14:31 | Emergency (ER) | payer MEDICARE ==
[2018-09-30] MEDS ORDERED: Zofran 4 MG/2 ML VIAL IV ONE (15:16)
[2018-09-30] MEDS ORDERED: Sodium Chloride 0.9% 1000 ML 1,000 ML IV STA (15:16)
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
[2018-09-30] MEDS ORDERED: TRANDATE 20 MG/5 ML SYRINGE IV ONE ×4 (15:21→16:51)
[2018-09-30] MEDS ORDERED: Zofran 4 MG/2 ML VIAL ONE (15:24)
[2018-09-30] MEDS ORDERED: Sodium Chloride 0.9% 1000 ML 1,000 ML ONE (15:24)
[2018-09-30 15:48] LABS: BASOPHIL % 0.5 % (0.0-0.4); Basophil (Absolute #) 0.04 (0-0.4); Eosinophil % 1.3 % (0.00-5.0); Eosinophil (Absolute #) 0.11 (0-0.5); Granulocytes % 81.5 % (36.0-66.0); Hematocrit 32.6 % (35-47); Hemoglobin 10.5 gm/dl (12.0-16.0); Lymphocyte (Absolute #) 0.95 (1.0-4.6); Lymphocytes % 11.3 % (24.0-44.0); Mean Cell Volume 80.7 fl (78-100); Mean Corpuscular Hgb Concent. 32.2 g/dl (32-36); Mean Platelet Volume 13.5 fl (6-9.5); Monocyte (Absolute #) 0.45 (0.0-1.3); Monocytes % 5.4 % (0.0-12.0); Platelet Count 142 K/mm3 (150-450); Red Blood Count 4.04 M/mm3 (4.1-5.4); Red Cell Distribution Width 15.7 % (11.5-14.0); White Blood Count 8.4 K/mm3 (4.0-10.5)
[2018-09-30 15:49] LABS: Mean Corpuscular Hemoglobin 25.9 pg (26-32)
[2018-09-30 15:53] LABS: Appearance SLIGHTLY CLOUDY (CLEAR); Bacteria RARE /HPF (NEGATIVE); Bilirubin NEGATIVE (NEGATIVE); Blood NEGATIVE Ery/ul (0-5); Glucose >=500 mg/dL (NEGATIVE); Ketones NEGATIVE (NEGATIVE); Leukocyte Esterase NEGATIVE (NEGATIVE); Mucus SLIGHT /HPF (NEGATIVE); Nitrite NEGATIVE (NEGATIVE); Protein,Urine Dip >=500 (Negative); Specific Gravity 1.018 (1.005-1.025); Urobilinogen NEGATIVE mg/dL (0-1); WBC 0-2 /HPF (0-5)
[2018-09-30 15:56] LABS: ALBUMIN 2.6 g/dL (3.5-5.0); ALKALINE PHOSPHATASE 88 U/L (38-126); AMYLASE < 30 U/L (30-110); ANION GAP 9.4 MEQ/L (5-15); BLOOD UREA NITROGEN 36 mg/dL (7-17); CHLORIDE 109 mmol/L (98-107); Carbon Dioxide 24 mmol/L (22-30); Creatinine 1 3.02 mg/dL (0.52-1.04); Glucose 179 mg/dL (74-106); LIPASE 47 U/L (23-300); Potassium 4.1 mmol/L (3.5-5.1); SGOT/AST 20 U/L (14-36); SGPT/ALT 19 U/L (0-35); SODIUM 138 mmol/L (137-145); Total Protein 5.3 g/dL (6.3-8.2)
--- NOTE | 2018-09-30 16:07 | XRAY ---
Indication: Nausea, abdominal pain, cramping, and diarrhea. Multiple contiguous axial images obtained through the abdomen and pelvis without contrast as ordered. Comparison: November 04, 2017. Lung bases again demonstrates large bibasilar pleural effusions with compressive atelectasis. Heart is not enlarged. Noncontrasted stomach and bowel loops appear nonobstructed. Normal appendix. There is again diffuse scattered colonic diverticulosis. Sigmoid colon now demonstrates mild wall thickening with minimal stranding, possible diverticulitis. Again tiny right colic free fluid with new tiny perisplenic and small pelvic free fluid. No walled off fluid collection or free air. Again previous cholecystectomy. Remaining liver, pancreas, spleen, adrenal glands, kidneys, ureters, bladder, and uterus appear unremarkable for noncontrast exam. Stable diffuse scattered vascular calcifications without AAA. Osseous structures intact again with mild degenerative changes throughout the spine. No ventral or inguinal hernias. Impression: 1. Again diffuse colonic diverticulosis. Suspect mild sigmoid diverticulitis. No perforation/complications. 2. Again large bibasilar pleural effusions without cardiomegaly. Small abdomen/pelvic ascites may be related. CTDI 20.50
[2018-09-30 16:18] LABS: Slide Review 1 YES
[2018-09-30] MEDS ORDERED: ROCEPHIN 1 Gm-D5w 50 ml Bag** 1 G/50 ML IVPB IV STA (16:49)
[2018-09-30] MEDS ORDERED: ROCEPHIN 1 Gm-D5w 50 ml Bag** 1 G/50 ML IVPB IV ONE (16:53)
[2018-09-30 17:07] VITALS: O2SAT 95
[2018-09-30 17:31] VITALS: BP 223/78; PULSE 60
== END 2018-09-30 17:39 | disposition short-term general hospital (02) ==
LOC: ED 14:31
DX: K57.92 Diverticulitis of intestine, part unspecified, without perforation or abscess without bleeding (principal); I50.9 Heart failure, unspecified; I10 Essential (primary) hypertension; R11.2 Nausea with vomiting, unspecified; R19.7 Diarrhea, unspecified; R10.31 Right lower quadrant pain; E11.9 Type 2 diabetes mellitus without complications; Z79.4 Long term (current) use of insulin; R10.32 Left lower quadrant pain; Z79.899 Other long term (current) drug therapy
CPT/HCPCS: 36000; 36415; 74176; 80053; 81001; 82150; 82272; 83605; 83690; 83880; 84484; 85025; 96360; 96365; 96374; 96375; 96376; 99284; J0696; J2405

== ENCOUNTER 2018-12-19 05:41 | Emergency (ER) | payer MEDICARE ==
[2018-12-19] MEDS ORDERED: DUONEB 0.5-3 MG/3 ml Neb IH ONE ×2 (05:57→06:04)
[2018-12-19 06:06] LABS: A-aADO2 583; ABG HEMOGLOBIN 8.5; ABG POTASSIUM 4.2 (3.5-5.1); ABG SITE RIGHT BRACHIAL; ARTERIAL BLD GAS O2 SATURATION 98.1 % (95-100); ARTERIAL BLOOD GAS FIO2 100 %; ARTERIAL BLOOD GAS PCO2 40 mmHg (35-45); ARTERIAL BLOOD GAS PO2 80 mmHg (75-100); ARTERIAL BLOOD GAS pH 7.43 (7.35-7.45); CARBOXYHEMOGLOBIN 2.2 % THgb (0.0-6.9); HCO3- 26.5 (22-28); Lactic Acid 1.6 (0.4-2.0); paO2 pAO1 0.12
--- NOTE | 2018-12-19 06:06 | ERPHSYRPT ---
- History of Present Illness Source: EMS Exam Limitations: clinical condition Timing/Duration: today Activities at Onset: none Severity of Dyspnea-Max: severe Severity of Dyspnea-Current: severe Possible Cause: occasional episodes Hx Tetanus, Diphtheria Vaccination/Date Given: Yes Hx Influenza Vaccination/Date Given: No Hx Pneumococcal Vaccination/Date Given: No <MARGE FERNANDEZ - Last Filed: 12/19/18 07:03> <YUNG PRITCHARD - Last Filed: 12/19/18 07:47> - History of Present Illness Time Seen by Provider: 12/19/18 05:57 Physician History: Pt developed SOB this morning, no further information is available due to her current condition. She is a dialysis patient, next dialysis is due tomorrow, no report of fever, vomiting, diarrhea, she denies chest or abdominal pain, she is in mod. severe respiratory distress. (MARGE FERNANDEZ) Allergies/Adverse Reactions: codeine [Codeine] Allergy (Severe, Verified 08/20/18 19:31) unsure propoxyphene HCl [From Darvon] Allergy (Severe, Verified 08/20/18 19:31) Tightness of Throat apixaban [From Eliquis] Allergy (Verified 12/19/18 06:48) dabigatran etexilate [From Pradaxa] Allergy (Verified 08/20/18 19:31) vision loss morphine Allergy (Verified 12/19/18 06:48) Penicillins Allergy (Verified 08/20/18 19:31) unsure sertraline Adverse Reaction (Intermediate, Verified 08/20/18 19:31) hallucinations Home Medications: Aspirin EC 81 mg [Ecotrin 81 mg] 81 mg PO DAILY 09/14/17 [History] Insulin Degludec [Tresiba Flextouch U-200] 25 unit SQ DAILY 09/14/17 [History] Labetalol HCl 200 mg PO BID 11/05/17 [History] Amlodipine Besylate 5 mg [Norvasc 5 mg] 5 mg PO DAILY 08/20/18 [History] Atorvastatin Calcium [Lipitor 40Mg] 40 mg PO DAILY 08/20/18 [History] Carvedilol 6.25 mg [Coreg 6.25 MG] 12.5 mg PO BID 08/20/18 [History] Esomeprazole Magnesium [Nexium] 40 mg PO DAILY 08/20/18 [History] Furosemide 40 mg [Lasix 40 MG] 40 mg PO DAILY 08/20/18 [History] Gabapentin 300 mg PO TID 08/20/18 [History] Isosorbide Mononitrate [Isosorbide Mononitrate ER] 60 mg PO DAILY 08/20/18 [ History] Levothyroxine Sodium 25 mcg PO DAILY 08/20/18 [History] Sodium Bicarbonate 650 mg PO BID 08/20/18 [History] - Review of Systems Constitutional: No Symptoms Respiratory: Dyspnea Cardiac: Edema, No Chest Pain All Other Systems: Unable due to condition <MARGE FERNANDEZ - Last Filed: 12/19/18 07:03> - Past Medical History Pertinent Past Medical History: Yes Neurological History: Peripheral Neuropathy ENT History: No Pertinent History Cardiac History: Angina, Arrhythmia, Coronary Artery Disease, Hypertension Respiratory History: No Pertinent History Endocrine Medical History: Diabetes Type II Musculoskeletal History: Arthritis GI Medical History: No Pertinent History History: No Pertinent History Psycho-Social History: No Pertinent History Female Reproductive Disorders: No Pertinent History Other Medical History: afib, cryo to cervic for precancerous cells - Past Surgical History Past Surgical History: Yes Neuro Surgical History: No Pertinent History Cardiac: Cardiac Catheterization, Cardiac Stent Respiratory: No Pertinent History Gastrointestinal: Cholecystectomy Genitourinary: No Pertinent History Musculoskeletal: No Pertinent History Female Surgical History: Tubal Ligation Other Surgical History: skin grafts to upper thighs as a child, heart stent x2 - Social History Smoking Status: Never smoker Exposure to second hand smoke: No Alcohol Use: None Drug Use: none Patient Lives Alone: No Significant Family History: heart disease, diabetes - Female History Hx Now: No (N) <MARGE FERNANDEZ - Last Filed: 12/19/18 07:03> - Physical Exam General Appearance: moderate distress Eye Exam: eyes nml inspection Neck Exam: supple, No carotid bruit, No JVD, No lymphadenopathy (R), No lymphadenopathy (L) Respiratory Exam: diminished breath sounds, crackles/rales (left base), rhonchi Cardiovascular/Chest Exam: edema (left upper extremity), tachycardia, irregular Abdominal/Gastrointestinal Exam: soft, No tenderness, No distention, No mass Extremity Exam: non-tender, no calf tenderness, no pedal edema (left upper extremity edema), slow capillary refill Peripheral Pulses Exam: carotid (R): 2+, carotid (L): 2+, dorsalis-pedis (R): 1+ , dorsalis-pedis (L): 1+ Neurologic Exam: other (lethargic, easy to arouse, answers verbally) Skin Exam: normal color, warm, dry, No rash, No petechiae Lymphatic Exam: No adenopathy SpO2 Interpretation: hypoxic O2 Delivery: Venti-Mask (receiving neb. treatment) <MARGE FERNANDEZ - Last Filed: 12/19/18 07:03> - Nursing Vital Signs Nursing Vital Signs: Initial Vital Signs Temperature 98.4 F 12/19/18 05:55 Pulse Rate 117 H 12/19/18 05:55 Respiratory Rate 24 12/19/18 05:55 Blood Pressure 120/64 12/19/18 05:55 O2 Sat by Pulse Oximetry 83 L 12/19/18 05:55 Pain Scale Pain Intensity 0 - Course Nursing assessment & vital signs reviewed: Yes EKG Interpreted by Me: RATE (119/min), A-fib, NORMAL AXIS, Non-specific ST Changes <MARGE FERNANDEZ - Last Filed: 12/19/18 07:03> Ordered Tests: Active Orders 24 hr Category Date Time Status Livestock Inspector STAT Care 12/19/18 05:58 Active EKG-ER Only STAT Care 12/19/18 05:57 Active IV Insertion STAT Care 12/19/18 05:57 Active CHEST 1 VIEW (PORTABLE) Stat Exams 12/19/18 05:58 Taken ARTERIAL BLOOD GASES Stat Lab 12/19/18 05:57 Completed CBC W DIFF Stat Lab 12/19/18 05:57 Completed CMP Stat Lab 12/19/18 05:57 Completed Lactic Acid Stat Lab 12/19/18 05:57 Completed MAGNESIUM Stat Lab 12/19/18 05:57 Completed Manual Differential NC Stat Lab 12/19/18 05:57 Completed NT PRO BNP Stat Lab 12/19/18 05:57 Completed PROTIME WITH INR Stat Lab 12/19/18 05:57 Completed PTT Stat Lab 12/19/18 05:57 Completed TROPONIN Q3H Lab 12/19/18 06:00 Completed TROPONIN Q3H Lab 12/19/18 09:00 Ordered TROPONIN Q3H Lab 12/19/18 12:00 Ordered TROPONIN Q3H Lab 12/19/18 15:00 Ordered TROPONIN Q3H Lab 12/19/18 18:00 Ordered BiPap/CPAP STAT RT 12/19/18 05:57 Active Respiratory Therapy Assessment DAILY RT 12/19/18 06:13 Active Medication Summary Discontinued Medications Generic Name Dose Route Start Last Admin Trade Name Freq PRN Reason Stop Dose Admin Albuterol/Ipratropium 3 ml 12/19/18 05:57 12/19/18 06:11 Duoneb 0.5-3 Mg/3 Ml Neb IH 12/19/18 05:58 3 ml STAT ONE Administration Albuterol/Ipratropium Confirm 12/19/18 06:04 Duoneb 0.5-3 Mg/3 Ml Neb Administered 12/19/18 06:05 Dose 3 ml IH .STK-MED ONE Lab/Rad Data: Laboratory Result Diagrams 12/19/18 05:57 12/19/18 05:57 Laboratory Results 12/19/18 12/19/18 12/19/18 Range/Units 06:30 06:00 05:57 WBC (4.0-10.5) K/mm3 RBC (4.1-5.4) M/mm3 Hgb (12.0-16.0) gm/dl Hct (35-47) % MCV (78-100) fl MCH (26-32) pg MCHC (32-36) g/dl RDW (11.5-14.0) % Plt Count (150-450) K/mm3 MPV (6-9.5) fl Segmented Neutrophils (36.0-66.0) % Lymphocytes (Manual) (24-44) % Monocytes (Manual) (0.0-12.0) % Hypochromia Platelet Estimate (NORMAL) RBC Morphology Polychromasia PT 17.0 H (9.95-12.35) SECONDS INR 1.46 (0.8-3.0) APTT 27.1 (25.3-37.0) SECONDS Puncture Site pCO2 (35-45) mmHg pO2 (75-100) mmHg Base Excess (-2.0-2.0) O2 Saturation (94-100) g/dF ABG pH (7.35-7.45) ABG HCO3 (22-28) ABG O2 Sat (Measured) (95-100) % Kristopher Test A-a Gradient a/A Ratio Hemoglobin Carboxyhemoglobin (0.0-6.9) % THgb Methemoglobin (1.4-1.5) % Potassium (3.5-5.1) Temperature C POC O2 Flow Rate % Inspiratory BiPAP Expiratory BiPAP Sodium (137-145) mmol/L Chloride (98-107) mmol/L Carbon Dioxide (22-30) mmol/L Anion Gap (5-15) MEQ/L BUN (7-17) mg/dL Creatinine (0.52-1.04) mg/dL Estimated GFR ML/MIN Glucose (74-106) mg/dL Lactic Acid (0.4-2.0) Calcium (8.4-10.2) mg/dL Magnesium (1.6-2.3) mg/dL Total Bilirubin (0.2-1.3) mg/dL AST (14-36) U/L ALT (0-35) U/L Alkaline Phosphatase (38-126) U/L Troponin I 0.018 (0.000-0.034) ng/mL NT-Pro-B Natriuret Pep (0-900) pg/mL Serum Total Protein (6.3-8.2) g/dL Albumin (3.5-5.0) g/dL Influenza Type A Ag NEGATIVE (NEGATIVE) Influenza Type B Ag NEGATIVE (NEGATIVE) RSV (PCR) NEGATIVE (Negative) 12/19/18 12/19/18 12/19/18 Range/Units 05:57 05:57 05:57 WBC 15.6 H (4.0-10.5) K/mm3 RBC 2.49 L (4.1-5.4) M/mm3 Hgb 6.4 L* (12.0-16.0) gm/dl Hct 21.5 L (35-47) % MCV 86.3 (78-100) fl MCH 25.7 L (26-32) pg MCHC 29.8 L (32-36) g/dl RDW 15.2 H (11.5-14.0) % Plt Count 211 (150-450) K/mm3 MPV 11.6 H (6-9.5) fl Segmented Neutrophils 92 H (36.0-66.0) % Lymphocytes (Manual) 4 L (24-44) % Monocytes (Manual) 4 (0.0-12.0) % Hypochromia 1+ Platelet Estimate NORMAL (NORMAL) RBC Morphology ABNORMAL Polychromasia 1+ PT (9.95-12.35) SECONDS INR (0.8-3.0) APTT (25.3-37.0) SECONDS Puncture Site RIGHT BRACHIAL pCO2 40 (35-45) mmHg pO2 80 (75-100) mmHg Base Excess 2.0 (-2.0-2.0) O2 Saturation 95.0 (94-100) g/dF ABG pH 7.43 (7.35-7.45) ABG HCO3 26.5 (22-28) ABG O2 Sat (Measured) 98.1 (95-100) % Kristopher Test NOT APPLICABLE A-a Gradient 583 a/A Ratio 0.12 Hemoglobin 8.5 Carboxyhemoglobin 2.2 (0.0-6.9) % THgb Methemoglobin 1.0 L (1.4-1.5) % Potassium 4.3 4.2 (3.5-5.1) Temperature 37.0 C POC O2 Flow Rate 100 % Inspiratory BiPAP 14 Expiratory BiPAP 6 Sodium 130 L (137-145) mmol/L Chloride 91 L (98-107) mmol/L Carbon Dioxide 25 (22-30) mmol/L Anion Gap 18.2 H (5-15) MEQ/L BUN 82 H (7-17) mg/dL Creatinine 2.76 H (0.52-1.04) mg/dL Estimated GFR 18.0 ML/MIN Glucose 202 H (74-106) mg/dL Lactic Acid 1.6 (0.4-2.0) Calcium 8.8 (8.4-10.2) mg/dL Magnesium 2.9 H (1.6-2.3) mg/dL Total Bilirubin 0.40 (0.2-1.3) mg/dL AST 13 L (14-36) U/L ALT 20 (0-35) U/L Alkaline Phosphatase 165 H (38-126) U/L Troponin I (0.000-0.034) ng/mL NT-Pro-B Natriuret Pep > 58948 H (0-900) pg/mL Serum Total Protein 6.4 (6.3-8.2) g/dL Albumin 2.8 L (3.5-5.0) g/dL Influenza Type A Ag (NEGATIVE) Influenza Type B Ag (NEGATIVE) RSV (PCR) (Negative) - Progress Progress: improved Air Movement: fair Blood Culture(s) Obtained: No Antibiotics given: No Counseled pt/family regarding: lab results, diagnosis, rad results <MARGE FERNANDEZ - Last Filed: 12/19/18 07:03> <YUNG PRITCHARD - Last Filed: 12/19/18 07:47> - Progress Progress Note: 12/19/18 07:04 Case was discussed with Dr Pritchard, he will follow up on her results. (MARGE FERNANDEZ) 12/19/18 07:[address] wilder at [facility] ED. pt family prefer this hospital. i reviewed pt hx, condition, lab and xray results. i notified him of us not performing a type and cross at this time. he accepts pt for transfer. i also spoke with dr. rai, pts docking saw operator and informed him of her transfer. (YUNG PRITCHARD) - Departure Time of Disposition: 07:05 Departure Disposition: Transfer Critical Care Time: Yes Critical Care Time(excluding separately billable procedures): 30-74 minutes <MARGE FERNANDEZ - Last Filed: 12/19/18 07:03> - Departure Time of Disposition: 07:46 Departure Disposition: Transfer Critical Care Time: Yes Critical Care Time(excluding separately billable procedures): 30-74 minutes <YUNG PRITCHARD - Last Filed: 12/19/18 07:47> - Departure Clinical Impression: Pleural effusion, Hypotension, Anemia, Renal failure (ARF), acute on chronic CHF (congestive heart failure) Qualifiers: Heart failure type: other Qualified Code(s): I50.9 - Heart failure, unspecified Condition: Fair Referrals: [facility] [Primary Care Provider] - Instructions: Heart Failure
[2018-12-19 06:39] LABS: Hematocrit 21.5 % (35-47); Mean Cell Volume 86.3 fl (78-100); Mean Corpuscular Hemoglobin 25.7 pg (26-32); Mean Corpuscular Hgb Concent. 29.8 g/dl (32-36); Mean Platelet Volume 11.6 fl (6-9.5); Platelet Count 211 K/mm3 (150-450); Red Blood Count 2.49 M/mm3 (4.1-5.4); Red Cell Distribution Width 15.2 % (11.5-14.0); White Blood Count 15.6 K/mm3 (4.0-10.5)
[2018-12-19 06:44] VITALS: O2SAT 100
[2018-12-19 06:54] LABS: INR 1.46 (0.8-3.0)
[2018-12-19 06:55] LABS: Hemoglobin 6.4 gm/dl (12.0-16.0)
[2018-12-19 06:56] LABS: PTT 27.1 SECONDS (25.3-37.0)
[2018-12-19 07:07] LABS: ALBUMIN 2.8 g/dL (3.5-5.0); ALKALINE PHOSPHATASE 165 U/L (38-126); ANION GAP 18.2 MEQ/L (5-15); BLOOD UREA NITROGEN 82 mg/dL (7-17); CHLORIDE 91 mmol/L (98-107); Calcium 8.8 mg/dL (8.4-10.2); Carbon Dioxide 25 mmol/L (22-30); Creatinine 1 2.76 mg/dL (0.52-1.04); Glucose 202 mg/dL (74-106); MAGNESIUM 2.9 mg/dL (1.6-2.3); NT PRO BNP > 35000 pg/mL (0-900); Potassium 4.3 mmol/L (3.5-5.1); SGOT/AST 13 U/L (14-36); SGPT/ALT 20 U/L (0-35); SODIUM 130 mmol/L (137-145); Total Protein 6.4 g/dL (6.3-8.2)
[2018-12-19 07:41] LABS: Hypochromia 1+; Lymphocytes 4 % (24-44); Monocyte 4 % (0.0-12.0); Neutrophils 92 % (36.0-66.0); Platelet Estimate NORMAL (NORMAL); Polychromasia 1+; Total Cells Counted 100
[2018-12-19 07:41] LABS: INFLUENZA A NEGATIVE (NEGATIVE); INFLUENZA B NEGATIVE (NEGATIVE); RESPIRATORY SYNCTIAL VIRUS NEGATIVE (Negative)
[2018-12-19 08:39] VITALS: BP 95/68; PULSE 112
--- NOTE | 2018-12-19 08:57 | XRAY ---
Indication: Dyspnea. Comparison: August 20, 2018. Portable chest demonstrates new complete opacification of the left lung presumed combination effusion and atelectasis. Underlying mass not completely excluded. Right lung base partially obscured by new overlying dialysis catheter. Visualized right lung clear and heart grossly not enlarged. Bony thorax intact again with mild osteopenia and degenerative changes. Impression: New complete opacification of the left lung, presumed combination effusion and atelectasis. Underlying mass not completely excluded. New right dialysis catheter without complications.
== END 2018-12-19 09:04 | disposition short-term general hospital (02) ==
LOC: ED 05:41
DX: J90 Pleural effusion, not elsewhere classified (principal); I95.9 Hypotension, unspecified; D64.9 Anemia, unspecified; I50.9 Heart failure, unspecified; I12.9 Hypertensive chronic kidney disease with stage 1 through stage 4 chronic kidney disease, or unspecified chronic kidney disease; N18.9 Chronic kidney disease, unspecified; N17.9 Acute kidney failure, unspecified; I25.10 Atherosclerotic heart disease of native coronary artery without angina pectoris; E11.9 Type 2 diabetes mellitus without complications; G62.9 Polyneuropathy, unspecified; M19.90 Unspecified osteoarthritis, unspecified site; Z79.899 Other long term (current) drug therapy
CPT/HCPCS: 36000; 36415; 36600; 71045; 80053; 82375; 82803; 83605; 83735; 83880; 84484; 85025; 85610; 85730; 87631; 93005; 93041; 94002; 94640; 99285; A9270-GY

== ENCOUNTER 2019-02-07 10:45 | Emergency (ER) | payer MEDICARE ==
[2019-02-07] MEDS ORDERED: BABY ASPIRIN 81 MG CHEW PO ONE (10:51)
--- NOTE | 2019-02-07 10:55 | ERPHSYRPT ---
- History of Present Illness Time Seen by Provider: 02/07/19 10:53 Historian: patient Physician History: NH pt today w/ constant chest pain tight nonrad during dialysis [employer], no injury, no fever Aspirin Treatment Today: provided by ED Allergies/Adverse Reactions: codeine [Codeine] Allergy (Severe, Verified 02/07/19 11:40) unsure propoxyphene HCl [From Darvon] Allergy (Severe, Verified 02/07/19 11:40) Tightness of Throat apixaban [From Eliquis] Allergy (Verified 02/07/19 11:40) dabigatran etexilate [From Pradaxa] Allergy (Verified 02/07/19 11:40) vision loss morphine Allergy (Verified 02/07/19 11:40) Penicillins Allergy (Verified 02/07/19 11:40) unsure sertraline Adverse Reaction (Intermediate, Verified 02/07/19 11:40) hallucinations Home Medications: Acetaminophen Susp [Tylenol Suspension 160 mg/5 ml] 640 mg PO Q4HPRN PRN 01/16/19 [History] Apixaban [Eliquis] 5 mg PO DAILY 01/16/19 [History] Aspirin 81 gm Chew [Baby Aspirin 81 mg Chew] 81 mg PO DAILY 01/16/19 [ History] Bisacodyl 10 mg RC DAILY PRN PRN 01/16/19 [History] Docusate Sodium 50 mg/5 ml [COLACE Liquid 50 MG/5 ML] 10 mg PO DAILY 01/16 [History] Ferrous Sulfate 325 mg PO BID 01/16/19 [History] Furosemide 20 mg [Lasix 20 mg] 60 mg PO DAILY 01/16/19 [History] Gabapentin [Neurontin] 300 mg PO TID 01/16/19 [History] Glucagon 1 mg [GlucaGen 1 MG] 1 mg IM Q12H PRN PRN 01/16/19 [History] Hydralazine HCl 50 mg PO TID 01/16/19 [History] Hydrocodone/Acetaminophen [Hydrocodon-Acetamin 7.5-325/15] 15 ml PO Q4HPRN PRN 01/16/19 [History] Insulin Glargine,Hum.rec.anlog [Lantus] 15 unit SQ DAILY 01/16/19 [History] Insulin Lispro [Humalog] 4 unit SQ Q4H 01/16/19 [History] Ipratropium/Albuterol Sulfate [Iprat-Albut 0.5-3(2.5) mg/3 ml] 3 ml IH Q6H PRN 01/16/19 [History] Levothyroxine Sodium 25 mcg PO DAILY 01/16/19 [History] Metoprolol Succinate 50 mg [Toprol Xl 50 MG] 50 mg PO BID 01/16/19 [ History] Nitroglycerin 0.4 mg Tablet [Nitrostat 0.4 MG Tablet] 0.4 mg SL Q5MIN PRN MR X 3 PRN 01/16/19 [History] Omeprazole 40 mg PO DAILY 01/16/19 [History] Ondansetron [Ondansetron Odt] 8 mg PO Q8HPRN PRN 01/16/19 [History] Promethazine HCl 25 mg Amp [Phenergan 25 MG INJ] 25 mg IJ Q6HPRN PRN 01/16 [History] Hx Tetanus, Diphtheria Vaccination/Date Given: Yes Hx Influenza Vaccination/Date Given: No Hx Pneumococcal Vaccination/Date Given: No - Review of Systems Constitutional: No Fever Eyes: No Vision Changes Ears, Nose, & Throat: No Mouth Pain Respiratory: No Dyspnea Cardiac: Chest Pain Abdominal/Gastrointestinal: No Abdominal Pain, No Vomiting Musculoskeletal: No Back Pain Skin: No Rash Neurological: No Dizziness - Past Medical History Pertinent Past Medical History: Yes Neurological History: Peripheral Neuropathy ENT History: No Pertinent History Cardiac History: Angina, Arrhythmia, Congestive Heart Failure, Coronary Artery Disease, Hypertension Respiratory History: CHF, COPD Endocrine Medical History: Diabetes Type II, Hypothyroidism Musculoskeletal History: Arthritis GI Medical History: No Pertinent History History: Dialysis, Renal Disease Psycho-Social History: No Pertinent History Female Reproductive Disorders: No Pertinent History Other Medical History: afib, cryo to cervic for precancerous cells - Past Surgical History Past Surgical History: Yes Neuro Surgical History: No Pertinent History Cardiac: Cardiac Catheterization, Cardiac Stent Respiratory: No Pertinent History Gastrointestinal: Cholecystectomy Genitourinary: No Pertinent History Musculoskeletal: No Pertinent History Female Surgical History: Tubal Ligation Other Surgical History: skin grafts to upper thighs as a child, heart stent x2 - Social History Smoking Status: Never smoker Exposure to second hand smoke: No Alcohol Use: None Drug Use: none Patient Lives Alone: No Significant Family History: heart disease, diabetes - Nursing Vital Signs Nursing Vital Signs: Initial Vital Signs Pulse Rate 140 H 02/07/19 10:49 Respiratory Rate 20 02/07/19 10:49 Blood Pressure 67/43 02/07/19 10:49 Pain Scale Pain Intensity 4 - Physical Exam General Appearance: no apparent distress Eye Exam: eyes nml inspection Ears, Nose, Throat Exam: moist mucous membranes Neck Exam: normal inspection Respiratory Exam: normal breath sounds Cardiovascular Exam: irregular Gastrointestinal/Abdomen Exam: soft, other (g tube), No tenderness Back Exam: No vertebral tenderness Extremity Exam: No pedal edema Neurologic Exam: alert, oriented x 3, cooperative Skin Exam: normal color, warm, dry, other (right subclavian) - Course Nursing assessment & vital signs reviewed: Yes EKG Interpreted by Me: A-fib, Other (no stemi) - Radiology Exams Chest X-ray Interpretation: Discussed w/ radiologist, No Pneumonia, No Pneumothorax Ordered Tests: Active Orders 24 hr Category Date Time Status Plumber'S Assistant STAT Care 02/07/19 10:52 Active EKG-ER Only STAT Care 02/07/19 10:51 Active IV Insertion STAT Care 02/07/19 10:51 Active CHEST 1 VIEW (PORTABLE) Stat Exams 02/07/19 10:52 Completed CBC W DIFF Stat Lab 02/07/19 11:00 Completed CK-Creatinine Phosphokinase Stat Lab 02/07/19 11:00 Completed CMP Stat Lab 02/07/19 11:00 Completed Manual Differential NC Stat Lab 02/07/19 11:00 Completed PROTIME WITH INR Stat Lab 02/07/19 11:00 Completed TROPONIN Q3H Lab 02/07/19 11:00 Completed TROPONIN Q3H Lab 02/07/19 14:00 Ordered TROPONIN Q3H Lab 02/07/19 17:00 Ordered TROPONIN Q3H Lab 02/07/19 20:00 Ordered TROPONIN Q3H Lab 02/07/19 23:00 Ordered Medication Summary Discontinued Medications Generic Name Dose Route Start Last Admin Trade Name Freq PRN Reason Stop Dose Admin Aspirin 324 mg 02/07/19 10:51 Baby Aspirin 81 Mg Chew PO 02/07/19 10:52 STAT ONE Sodium Chloride 1,000 mls @ 999 mls/hr 02/07/19 11:04 02/07/19 11:15 Sodium Chloride 0.9% 1000 Ml IV 02/07/19 12:04 999 mls/hr .Q1H1M STA Administration Sodium Chloride Confirm 02/07/19 11:04 Sodium Chloride 0.9% 1000 Ml Administered 02/07/19 11:05 Dose 1,000 mls @ ud .ROUTE .STK-MED ONE Lab/Rad Data: Laboratory Result Diagrams 02/07/19 11:00 02/07/19 11:00 Laboratory Results 02/07/19 02/07/19 02/07/19 Range/Units 11:00 11:00 11:00 WBC (4.0-10.5) K/mm3 RBC (4.1-5.4) M/mm3 Hgb (12.0-16.0) gm/dl Hct (35-47) % MCV (78-100) fl MCH (26-32) pg MCHC (32-36) g/dl RDW (11.5-14.0) % Plt Count (150-450) K/mm3 MPV (6-9.5) fl Absolute Granulocytes (1.4-6.9) Segmented Neutrophils (36.0-66.0) % Lymphocytes (Manual) (24-44) % Monocytes (Manual) (0.0-12.0) % Eosinophils (Manual) (0.00-3.0) % Hypochromia Platelet Estimate (NORMAL) RBC Morphology Polychromasia Anisocytosis PT 17.1 H (9.95-12.35) SECONDS INR 1.46 (0.8-3.0) Sodium 135 L (137-145) mmol/L Potassium 3.7 (3.5-5.1) mmol/L Chloride 96 L (98-107) mmol/L Carbon Dioxide 30 (22-30) mmol/L Anion Gap 12.5 (5-15) MEQ/L BUN 17 (7-17) mg/dL Creatinine 0.98 (0.52-1.04) mg/dL Estimated GFR 59.3 ML/MIN Glucose 111 H (74-106) mg/dL Calcium 8.9 (8.4-10.2) mg/dL Total Bilirubin 0.60 (0.2-1.3) mg/dL AST 18 (14-36) U/L ALT 19 (0-35) U/L Alkaline Phosphatase 136 H (38-126) U/L Creatine Kinase < 20 L (30-135) U/L Troponin I < 0.012 (0.000-0.034) ng/mL Serum Total Protein 6.5 (6.3-8.2) g/dL Albumin 3.0 L (3.5-5.0) g/dL 02/07/19 Range/Units 11:00 WBC 9.1 (4.0-10.5) K/mm3 RBC 3.67 L (4.1-5.4) M/mm3 Hgb 10.0 L (12.0-16.0) gm/dl Hct 33.2 L (35-47) % MCV 90.5 (78-100) fl MCH 27.2 (26-32) pg MCHC 30.1 L (32-36) g/dl RDW 15.7 H (11.5-14.0) % Plt Count 206 (150-450) K/mm3 MPV 11.2 H (6-9.5) fl Absolute Granulocytes 7.43 H (1.4-6.9) Segmented Neutrophils 82 H (36.0-66.0) % Lymphocytes (Manual) 12 L (24-44) % Monocytes (Manual) 4 (0.0-12.0) % Eosinophils (Manual) 2 (0.00-3.0) % Hypochromia 1+ Platelet Estimate NORMAL (NORMAL) RBC Morphology ABNORMAL Polychromasia RARE Anisocytosis 1+ PT (9.95-12.35) SECONDS INR (0.8-3.0) Sodium (137-145) mmol/L Potassium (3.5-5.1) mmol/L Chloride (98-107) mmol/L Carbon Dioxide (22-30) mmol/L Anion Gap (5-15) MEQ/L BUN (7-17) mg/dL Creatinine (0.52-1.04) mg/dL Estimated GFR ML/MIN Glucose (74-106) mg/dL Calcium (8.4-10.2) mg/dL Total Bilirubin (0.2-1.3) mg/dL AST (14-36) U/L ALT (0-35) U/L Alkaline Phosphatase (38-126) U/L Creatine Kinase (30-135) U/L Troponin I (0.000-0.034) ng/mL Serum Total Protein (6.3-8.2) g/dL Albumin (3.5-5.0) g/dL - Progress Progress: improved Air Movement: good Progress Note: 02/07/19 14:14 Dr العلي accepts transfer to [place] as family requested for atrial fib, chest pain , hypotension, renal failure needing inpatient dialysis Counseled pt/family regarding: lab results, diagnosis, rad results - Departure Departure Disposition: Transfer Clinical Impression: Renal failure (ARF), acute on chronic Qualifiers: Acute renal failure type: unspecified Chronic kidney disease stage: on chronic dialysis Qualified Code(s): N17.9 - Acute kidney failure, unspecified; N18.9 - Chronic kidney disease, unspecified; Z99.2 - Dependence on renal dialysis Atrial fibrillation Qualifiers: Atrial fibrillation type: unspecified Qualified Code(s): I48.91 - Unspecified atrial fibrillation Condition: Stable Critical Care Time: No Referrals: [facility] [Primary Care Provider] -
[2019-02-07] MEDS ORDERED: Sodium Chloride 0.9% 1000 ML 1,000 ML IV STA (11:04)
[2019-02-07] MEDS ORDERED: Sodium Chloride 0.9% 1000 ML 1,000 ML ONE ×2 (11:04→14:42)
[2019-02-07 11:15] LABS: Hematocrit 33.2 % (35-47); Mean Cell Volume 90.5 fl (78-100); Mean Corpuscular Hemoglobin 27.2 pg (26-32); Mean Corpuscular Hgb Concent. 30.1 g/dl (32-36); Mean Platelet Volume 11.2 fl (6-9.5); Platelet Count 206 K/mm3 (150-450); Red Blood Count 3.67 M/mm3 (4.1-5.4); Red Cell Distribution Width 15.7 % (11.5-14.0); White Blood Count 9.1 K/mm3 (4.0-10.5)
[2019-02-07 11:28] LABS: INR 1.46 (0.8-3.0); PROTIME 17.1 SECONDS (9.95-12.35)
--- NOTE | 2019-02-07 11:36 | XRAY ---
Indication: Chest pain. Comparison: December 19, 2018. Portable chest demonstrates new left chest tube with tip projecting infrahilar. Previous large effusion/atelectasis has resolved. No pneumothorax. Right mid lung fibrosis/scarring. Remaining heart and lungs unremarkable with stable right Port-A-Cath. Impression: Nonacute chest with left chest tube and right Port-A-Cath in situ.
[2019-02-07 11:40] LABS: Eosinophil 2 % (0.00-3.0); Lymphocytes 12 % (24-44); Monocyte 4 % (0.0-12.0); Neutrophils 82 % (36.0-66.0); Total Cells Counted 100
[2019-02-07 11:43] LABS: ANISOCYTOSIS 1+; Hypochromia 1+; Platelet Estimate NORMAL (NORMAL); Polychromasia RARE
[2019-02-07 11:44] LABS: Granulocyte Absolute (ANC) 7.43 (1.4-6.9)
[2019-02-07 12:07] LABS: CHLORIDE 96 mmol/L (98-107)
[2019-02-07 12:33] LABS: ALKALINE PHOSPHATASE 136 U/L (38-126); ANION GAP 12.5 MEQ/L (5-15); BLOOD UREA NITROGEN 17 mg/dL (7-17); Calcium 8.9 mg/dL (8.4-10.2); Carbon Dioxide 30 mmol/L (22-30); Creatinine 1 0.98 mg/dL (0.52-1.04); Glucose 111 mg/dL (74-106); Potassium 3.7 mmol/L (3.5-5.1); SGOT/AST 18 U/L (14-36); SGPT/ALT 19 U/L (0-35); SODIUM 135 mmol/L (137-145); Total Protein 6.5 g/dL (6.3-8.2)
[2019-02-07 12:50] LABS: CK-Creatinine Phosphokinase < 20 U/L (30-135)
[2019-02-07 14:55] VITALS: BP 127/76; PULSE 85; O2SAT 98
[2019-02-07] MEDS ORDERED: Nitrostat 0.4 MG (ED) SL ONE ×3 (15:09→15:26)
[2019-02-07] MEDS ORDERED: ASPIRIN 600 MG PR ONE (15:09)
[2019-02-07] MEDS ORDERED: ASPIRIN 600 MG ONE (15:15)
== END 2019-02-07 15:41 | disposition short-term general hospital (02) ==
LOC: ED 10:45
DX: N17.9 Acute kidney failure, unspecified (principal); Z99.2 Dependence on renal dialysis; N18.9 Chronic kidney disease, unspecified; I48.91 Unspecified atrial fibrillation; Z79.899 Other long term (current) drug therapy; I50.9 Heart failure, unspecified; I25.10 Atherosclerotic heart disease of native coronary artery without angina pectoris; J44.9 Chronic obstructive pulmonary disease, unspecified; E11.9 Type 2 diabetes mellitus without complications; E03.9 Hypothyroidism, unspecified; Z79.01 Long term (current) use of anticoagulants
CPT/HCPCS: 36415; 71045; 80053; 82550; 84484; 85025; 85610; 93005; 93041; 96360; 99285; A9270-GY

== ENCOUNTER 2019-05-25 21:06 | Emergency (ER) | payer MEDICARE ==
--- NOTE | 2019-05-25 21:09 | ERPHSYRPT ---
- History of Present Illness Time Seen by Provider: 05/25/19 21:09 Historian: patient, EMS Exam Limitations: no limitations Physician History: 73 y/o white female diabetic with renal failure suppose to be on dialysis but refuses, and has htn on hydralazine and lopressor. she presents via ems with cp earlier today but none now. pt is under a lot of stress and very anxious. she lives in a small home with seven people. pt arrives in no cp at all. she denies so and denies abd pain. pt took one baby asa at home. pt is on eliquis Timing/Duration: today Quality: pressure Location: substernal Chest Pain Radiation: no radiation Severity of Pain-Max: mild Severity of Pain-Current: none Associated Symptoms: denies symptoms Prior Chest Pain/Cardiac Workup: heart attack (in past) Nitro Today/Relief: no nitro taken today Aspirin Treatment Today: 81 mg x 1, provided at home Allergies/Adverse Reactions: codeine [Codeine] Allergy (Severe, Verified 05/25/19 21:16) unsure propoxyphene HCl [From Darvon] Allergy (Severe, Verified 05/25/19 21:16) Tightness of Throat dabigatran etexilate [From Pradaxa] Allergy (Verified 05/25/19 21:16) vision loss morphine Allergy (Verified 05/25/19 21:16) Penicillins Allergy (Verified 05/25/19 21:16) unsure sertraline Adverse Reaction (Intermediate, Verified 05/25/19 21:16) hallucinations Home Medications: Acetaminophen Susp [Tylenol Suspension 160 mg/5 ml] 640 mg PO Q4HPRN PRN 01/16/19 [History] Apixaban [Eliquis] 5 mg PO DAILY 01/16/19 [History] Aspirin 81 gm Chew [Baby Aspirin 81 mg Chew] 81 mg PO DAILY 01/16/19 [ History] Bisacodyl 10 mg RC DAILY PRN PRN 01/16/19 [History] Docusate Sodium 50 mg/5 ml [COLACE Liquid 50 MG/5 ML] 10 mg PO DAILY 01/16 [History] Ferrous Sulfate 325 mg PO BID 01/16/19 [History] Furosemide 20 mg [Lasix 20 mg] 60 mg PO BID 01/16/19 [History] Gabapentin [Neurontin] 300 mg PO TID 01/16/19 [History] Glucagon 1 mg [GlucaGen 1 MG] 1 mg IM Q12H PRN PRN 01/16/19 [History] Hydralazine HCl 50 mg PO TID 01/16/19 [History] Insulin Lispro [Humalog] 4 unit SQ Q4H 01/16/19 [History] Levothyroxine Sodium 25 mcg PO DAILY 01/16/19 [History] Metoprolol Succinate 50 mg [Toprol Xl 50 MG] 50 mg PO BID 01/16/19 [ History] Nitroglycerin 0.4 mg Tablet [Nitrostat 0.4 MG Tablet] 0.4 mg SL Q5MIN PRN MR X 3 PRN 01/16/19 [History] Omeprazole 40 mg PO DAILY 01/16/19 [History] Cholecalciferol (Vitamin D3) [Vitamin D] 50,000 unit PO DAILY 04/07/19 [History] Insulin Degludec [Tresiba] 100 unit SQ DAILY PRN PRN 04/07/19 [History] Patiromer Calcium Sorbitex [Veltassa] 8.4 gm PO UD 04/07/19 [History] Polyethylene Glycol 3350 17 gm [Miralax Powder 17GM PACKET] 17 gm PO DAILY PRN PRN 04/07/19 [History] Tramadol HCl 50 mg [Ultram 50 mg] 50 mg PO Q6HPRN PRN 04/07/19 [History] Hx Tetanus, Diphtheria Vaccination/Date Given: Yes Hx Influenza Vaccination/Date Given: No Hx Pneumococcal Vaccination/Date Given: No - Review of Systems Constitutional: No Symptoms Eyes: No Symptoms Ears, Nose, & Throat: No Symptoms Respiratory: No Symptoms Cardiac: No Symptoms Abdominal/Gastrointestinal: No Symptoms Genitourinary Symptoms: No Symptoms Musculoskeletal: No Symptoms Skin: No Symptoms Neurological: No Symptoms Psychological: No Symptoms Endocrine: No Symptoms Hematologic/Lymphatic: No Symptoms Immunological/Allergic: No Symptoms All Other Systems: Reviewed and Negative - Past Medical History Pertinent Past Medical History: Yes Neurological History: Peripheral Neuropathy ENT History: No Pertinent History Cardiac History: Angina, Arrhythmia, Congestive Heart Failure, Coronary Artery Disease, Hypertension Respiratory History: CHF, COPD Endocrine Medical History: Diabetes Type II, Hypothyroidism Musculoskeletal History: Arthritis GI Medical History: No Pertinent History History: Dialysis, Renal Disease Psycho-Social History: No Pertinent History Female Reproductive Disorders: No Pertinent History Other Medical History: afib, cryo to cervic for precancerous cells - Past Surgical History Past Surgical History: Yes Neuro Surgical History: No Pertinent History Cardiac: Cardiac Catheterization, Cardiac Stent Respiratory: No Pertinent History Gastrointestinal: Cholecystectomy Genitourinary: No Pertinent History Musculoskeletal: No Pertinent History Female Surgical History: Tubal Ligation Other Surgical History: skin grafts to upper thighs as a child, heart stent x2 - Social History Smoking Status: Never smoker Exposure to second hand smoke: No Alcohol Use: None Drug Use: none Patient Lives Alone: No Significant Family History: heart disease, diabetes - Nursing Vital Signs Nursing Vital Signs: Initial Vital Signs Temperature 98.0 F 05/25/19 21:17 Pulse Rate 74 05/25/19 21:17 Respiratory Rate 20 05/25/19 21:17 Blood Pressure 213/72 05/25/19 21:17 O2 Sat by Pulse Oximetry 97 05/25/19 21:17 Pain Scale Pain Intensity 0 - Physical Exam General Appearance: no apparent distress, alert, anxiety Eye Exam: PERRL/EOMI, eyes nml inspection Ears, Nose, Throat Exam: normal ENT inspection, moist mucous membranes Neck Exam: normal inspection, non-tender, supple, full range of motion Respiratory Exam: normal breath sounds, lungs clear, No chest tenderness, No respiratory distress Cardiovascular Exam: regular rate/rhythm, normal heart sounds, normal peripheral pulses Gastrointestinal/Abdomen Exam: soft, normal bowel sounds, No tenderness Pelvic Exam: not done Rectal Exam: not done Back Exam: normal inspection, normal range of motion, No CVA tenderness, No vertebral tenderness Extremity Exam: normal inspection, normal range of motion, pelvis stable Neurologic Exam: alert, oriented x 3, cooperative, test development engineer II-XII nml as tested Skin Exam: normal color, warm, dry Lymphatic Exam: No adenopathy SpO2 Interpretation: normal - Course Nursing assessment & vital signs reviewed: Yes EKG Interpreted by Me: RATE (77), Sinus Rhythm, NORMAL AXIS, NORMAL INTERVALS, NORMAL QRS, Other (sig improvement in todays ekg compared to ekg dated 02/07/19) Ordered Tests: Active Orders 24 hr Category Date Time Status Frame Nailer STAT Care 05/25/19 21:10 Active EKG-ER Only STAT Care 05/25/19 21:09 Active IV Insertion STAT Care 05/25/19 21:09 Active Pulse Oximetry (ED) STAT Care 05/25/19 21:09 Active CHEST 1 VIEW (PORTABLE) Stat Exams 05/25/19 21:09 Completed CBC W DIFF Stat Lab 05/25/19 21:49 Completed CMP Stat Lab 05/25/19 21:49 Completed D-DIMER QUANTITATION Stat Lab 05/25/19 21:49 Completed NT PRO BNP Stat Lab 05/25/19 21:49 Completed PROTIME WITH INR Stat Lab 05/25/19 21:49 Completed TROPONIN Q3H Lab 05/25/19 21:49 Completed TROPONIN Q3H Lab 05/26/19 00:15 Ordered TROPONIN Q3H Lab 05/26/19 03:15 Ordered TROPONIN Q3H Lab 05/26/19 06:15 Ordered TROPONIN Q3H Lab 05/26/19 09:15 Ordered Medication Summary Discontinued Medications Generic Name Dose Route Start Last Admin Trade Name Freq PRN Reason Stop Dose Admin Bumetanide 1 mg 05/25/19 22:37 05/25/19 22:43 Bumex 1 Mg IV 05/25/19 22:38 1 mg STAT ONE Administration Bumetanide Confirm 05/25/19 22:40 Bumex 1 Mg Administered 05/25/19 22:41 Dose 1 mg .ROUTE .STK-MED ONE Hydralazine HCl 10 mg 05/25/19 21:57 05/25/19 22:01 Apresoline 20 Mg/Ml Inj IV 05/25/19 21:58 10 mg STAT ONE Administration Hydralazine HCl Confirm 05/25/19 22:00 Apresoline 20 Mg/Ml Inj Administered 05/25/19 22:01 Dose 20 mg .ROUTE .STK-MED ONE Lab/Rad Data: Laboratory Result Diagrams 05/25/19 21:49 05/25/19 21:49 Laboratory Results 05/25/19 05/25/19 05/25/19 Range/Units 21:49 21:49 21:49 WBC (4.0-10.5) K/mm3 RBC (4.1-5.4) M/mm3 Hgb (12.0-16.0) gm/dl Hct (35-47) % MCV (78-100) fl MCH (26-32) pg MCHC (32-36) g/dl RDW (11.5-14.0) % Plt Count (150-450) K/mm3 MPV (6-9.5) fl Gran % (36.0-66.0) % Eos # (Auto) (0-0.5) Absolute Lymphs (auto) (1.0-4.6) Absolute Monos (auto) (0.0-1.3) Lymphocytes % (24.0-44.0) % Monocytes % (0.0-12.0) % Eosinophils % (0.00-5.0) % Basophils % (0.0-0.4) % Absolute Granulocytes (1.4-6.9) Basophils # (0-0.4) PT 17.7 H (9.95-12.35) SECONDS INR 1.55 (0.8-3.0) D-Dimer 822 H* (215-500) ng/mL Sodium 139 (137-145) mmol/L Potassium 4.5 (3.5-5.1) mmol/L Chloride 113 H (98-107) mmol/L Carbon Dioxide 19 L (22-30) mmol/L Anion Gap 11.9 (5-15) MEQ/L BUN 44 H (7-17) mg/dL Creatinine 3.24 H (0.52-1.04) mg/dL Estimated GFR 14.9 ML/MIN Glucose 194 H (74-106) mg/dL Calcium 8.5 (8.4-10.2) mg/dL Total Bilirubin 0.20 (0.2-1.3) mg/dL AST 13 L (14-36) U/L ALT 11 (0-35) U/L Alkaline Phosphatase 71 (38-126) U/L Troponin I < 0.012 (0.000-0.034) ng/mL NT-Pro-B Natriuret Pep 03955 H (0-900) pg/mL Serum Total Protein 5.2 L (6.3-8.2) g/dL Albumin 2.3 L (3.5-5.0) g/dL 05/25/19 Range/Units 21:49 WBC 6.5 (4.0-10.5) K/mm3 RBC 3.06 L (4.1-5.4) M/mm3 Hgb 8.3 L (12.0-16.0) gm/dl Hct 27.0 L (35-47) % MCV 88.2 (78-100) fl MCH 27.1 (26-32) pg MCHC 30.7 L (32-36) g/dl RDW 13.9 (11.5-14.0) % Plt Count 150 (150-450) K/mm3 MPV 12.4 H (6-9.5) fl Gran % 77.2 H (36.0-66.0) % Eos # (Auto) 0.22 (0-0.5) Absolute Lymphs (auto) 0.68 L (1.0-4.6) Absolute Monos (auto) 0.51 (0.0-1.3) Lymphocytes % 10.5 L (24.0-44.0) % Monocytes % 7.8 (0.0-12.0) % Eosinophils % 3.4 (0.00-5.0) % Basophils % 1.1 (0.0-0.4) % Absolute Granulocytes 5.02 (1.4-6.9) Basophils # 0.07 (0-0.4) PT (9.95-12.35) SECONDS INR (0.8-3.0) D-Dimer (215-500) ng/mL Sodium (137-145) mmol/L Potassium (3.5-5.1) mmol/L Chloride (98-107) mmol/L Carbon Dioxide (22-30) mmol/L Anion Gap (5-15) MEQ/L BUN (7-17) mg/dL Creatinine (0.52-1.04) mg/dL Estimated GFR ML/MIN Glucose (74-106) mg/dL Calcium (8.4-10.2) mg/dL Total Bilirubin (0.2-1.3) mg/dL AST (14-36) U/L ALT (0-35) U/L Alkaline Phosphatase (38-126) U/L Troponin I (0.000-0.034) ng/mL NT-Pro-B Natriuret Pep (0-900) pg/mL Serum Total Protein (6.3-8.2) g/dL Albumin (3.5-5.0) g/dL - Progress Progress: improved Air Movement: good Progress Note: 05/25/19 23:05 cxr-new borderline cardiomegaly and institial edema. small bilat pleural effusions. pt states she has been off her bumex for 3 days. pharmacy has been unable to obtain refills from pt prescribing doctor. pt does not want any work up for her elevated d dimer. she feels since she is on asa and eliquis and is aware her renal failure could raise d dimer levels and pt denies cp and soa, it is unlikely in her mind she has a lung blood clot. Blood Culture(s) Obtained: No Antibiotics given: No Counseled pt/family regarding: lab results, diagnosis, need for follow-up, rad results - Departure Departure Disposition: Home Clinical Impression: Chest pain, CHF (congestive heart failure), Elevated d-dimer, Renal failure Condition: Stable Critical Care Time: No Referrals: [facility] [Primary Care Provider] - Instructions: Heart Failure Additional Instructions: follow up with your material mover for further management. follow up with your drum sealer for further management. follow up with your prescribing physicians for prescription for bumex. Prescriptions: Bumetanide 1 mg [Bumex 1 mg] 1 mg PO BID #14 tablet
[2019-05-25 21:46] LABS: BASOPHIL % 1.1 % (0.0-0.4); Basophil (Absolute #) 0.07 (0-0.4); Eosinophil % 3.4 % (0.00-5.0); Eosinophil (Absolute #) 0.22 (0-0.5); Granulocyte Absolute (ANC) 5.02 (1.4-6.9); Granulocytes % 77.2 % (36.0-66.0); Hemoglobin 8.3 gm/dl (12.0-16.0); Lymphocyte (Absolute #) 0.68 (1.0-4.6); Lymphocytes % 10.5 % (24.0-44.0); Mean Cell Volume 88.2 fl (78-100); Mean Corpuscular Hemoglobin 27.1 pg (26-32); Mean Corpuscular Hgb Concent. 30.7 g/dl (32-36); Mean Platelet Volume 12.4 fl (6-9.5); Monocyte (Absolute #) 0.51 (0.0-1.3); Monocytes % 7.8 % (0.0-12.0); Platelet Count 150 K/mm3 (150-450); Red Blood Count 3.06 M/mm3 (4.1-5.4); Red Cell Distribution Width 13.9 % (11.5-14.0); White Blood Count 6.5 K/mm3 (4.0-10.5)
[2019-05-25 21:51] LABS: INR 1.55 (0.8-3.0); PROTIME 17.7 SECONDS (9.95-12.35)
[2019-05-25] MEDS ORDERED: APRESOLINE 20 MG/ML INJ IV ONE (21:57)
[2019-05-25] MEDS ORDERED: APRESOLINE 20 MG/ML INJ ONE (22:00)
[2019-05-25 22:05] LABS: ALBUMIN 2.3 g/dL (3.5-5.0); ANION GAP 11.9 MEQ/L (5-15); BILIRUBIN,TOTAL 0.2 mg/dL (0.2-1.3); Calcium 8.5 mg/dL (8.4-10.2); Creatinine 1 3.24 mg/dL (0.52-1.04); Potassium 4.5 mmol/L (3.5-5.1); Total Protein 5.2 g/dL (6.3-8.2)
--- NOTE | 2019-05-25 22:35 | XRAY ---
Indication: Chest pain and left arm numbness. History COPD and CHF. Comparison: February 07, 2019. Portable chest demonstrates new borderline cardiomegaly, interstitial edema, and small bilateral effusions including fluid in the right minor fissure. Stable right dialysis catheter. Bony thorax intact again with mild osteopenia and degenerative changes.
[2019-05-25] MEDS ORDERED: BUMEX 1 MG IV ONE (22:37)
[2019-05-25] MEDS ORDERED: BUMEX 1 MG ONE (22:40)
[2019-05-25 23:32] VITALS: BP 175/79; PULSE 63; O2SAT 99
== END 2019-05-25 23:36 | disposition home or self-care (01) ==
LOC: ED 21:06
DX: R07.9 Chest pain, unspecified (principal); I50.9 Heart failure, unspecified; R79.89 Other specified abnormal findings of blood chemistry; N19 Unspecified kidney failure; I25.10 Atherosclerotic heart disease of native coronary artery without angina pectoris; G62.9 Polyneuropathy, unspecified; E03.9 Hypothyroidism, unspecified; J44.9 Chronic obstructive pulmonary disease, unspecified; E11.9 Type 2 diabetes mellitus without complications; Z99.2 Dependence on renal dialysis; Z79.01 Long term (current) use of anticoagulants; Z79.899 Other long term (current) drug therapy
CPT/HCPCS: 36000; 36415; 71045; 80053; 83880; 84484; 85025; 85379; 85610; 93005; 93041; 94760; 96374; 96375; 99284; J0360

== ENCOUNTER 2019-06-08 22:20 | Emergency (ER) | payer MEDICARE ==
--- NOTE | 2019-06-08 22:55 | ERPHSYRPT ---
- History of Present Illness Time Seen by Provider: 06/08/19 22:40 Historian: patient Exam Limitations: no limitations Patient Subjective Stated Complaint: Chest pain Triage Nursing Assessment: Patient brought into ED via EMS and transferred to bed with assist of 2. Patient A+O X3. Patient's skin pink, warm and dry. Patient complains of chest pain around 1900 that was relieved by Nitro X 2. Patient denies chest pain or pain. Patient's lungs clear a/p [place]. Heart tones audible. No edema noted. Physician History: Chest Pain that was substernal and last for 15 minutes that resolved after 2 SL nitroglycerin Timing/Duration: today (3 hours prior to coming into the emergency department with episode last for 15 minutes) Activities at Onset: none Quality: aching Location: substernal Chest Pain Radiation: no radiation Severity of Pain-Max: mild Severity of Pain-Current: none Modifying Factors: Worsens With: breathing, coughing, movement, palpation, sitting up, change in position Associated Symptoms: No nausea, No vomiting, No palpitations, No heartburn, No abdominal pain, No shortness of breath, No cough, No hurts to breathe, No diaphoresis, No chills, No fever, No fatigue, No weakness, No swelling/lump in chest, No syncope, No rash, No headache, No dizziness, No edema, No back pain Prior Chest Pain/Cardiac Workup: angina, cardiac cath, heart attack, recently seen/treated (seen two weeks ago for similar complaints) Nitro Today/Relief: 0.4 mg x 2 Aspirin Treatment Today: 81 mg x 1 Allergies/Adverse Reactions: codeine [Codeine] Allergy (Severe, Verified 06/08/19 22:39) unsure propoxyphene HCl [From Darvon] Allergy (Severe, Verified 06/08/19 22:39) Tightness of Throat dabigatran etexilate [From Pradaxa] Allergy (Verified 06/08/19 22:39) vision loss morphine Allergy (Verified 06/08/19 22:39) Penicillins Allergy (Verified 06/08/19 22:39) unsure sertraline Adverse Reaction (Intermediate, Verified 06/08/19 22:39) hallucinations Home Medications: Acetaminophen Susp [Tylenol Suspension 160 mg/5 ml] 640 mg PO Q4HPRN PRN 01/16/19 [History] Apixaban [Eliquis] 5 mg PO DAILY 01/16/19 [History] Aspirin 81 gm Chew [Baby Aspirin 81 mg Chew] 81 mg PO DAILY 01/16/19 [ History] Bisacodyl 10 mg RC DAILY PRN PRN 01/16/19 [History] Docusate Sodium 50 mg/5 ml [COLACE Liquid 50 MG/5 ML] 10 mg PO DAILY 01/16 [History] Ferrous Sulfate 325 mg PO BID 01/16/19 [History] Furosemide 20 mg [Lasix 20 mg] 60 mg PO BID 01/16/19 [History] Gabapentin [Neurontin] 300 mg PO TID 01/16/19 [History] Glucagon 1 mg [GlucaGen 1 MG] 1 mg IM Q12H PRN PRN 01/16/19 [History] Hydralazine HCl 50 mg PO TID 01/16/19 [History] Insulin Lispro [Humalog] 4 unit SQ Q4H 01/16/19 [History] Levothyroxine Sodium 25 mcg PO DAILY 01/16/19 [History] Metoprolol Succinate 50 mg [Toprol Xl 50 MG] 50 mg PO BID 01/16/19 [ History] Nitroglycerin 0.4 mg Tablet [Nitrostat 0.4 MG Tablet] 0.4 mg SL Q5MIN PRN MR X 3 PRN 01/16/19 [History] Omeprazole 40 mg PO DAILY 01/16/19 [History] Cholecalciferol (Vitamin D3) [Vitamin D] 50,000 unit PO DAILY 04/07/19 [History] Insulin Degludec [Tresiba] 100 unit SQ DAILY PRN PRN 04/07/19 [History] Patiromer Calcium Sorbitex [Veltassa] 8.4 gm PO UD 04/07/19 [History] Polyethylene Glycol 3350 17 gm [Miralax Powder 17GM PACKET] 17 gm PO DAILY PRN PRN 04/07/19 [History] Tramadol HCl 50 mg [Ultram 50 mg] 50 mg PO Q6HPRN PRN 04/07/19 [History] Hx Tetanus, Diphtheria Vaccination/Date Given: Yes Hx Influenza Vaccination/Date Given: No Hx Pneumococcal Vaccination/Date Given: No Immunizations Up to Date: Yes - Review of Systems Constitutional: No Fever, No Chills Eyes: No Eye Pain, No Vision Changes Ears, Nose, & Throat: No Nose Pain, No Epistaxis, No Throat Pain Respiratory: No Cough, No Dyspnea Cardiac: Chest Pain, No Edema, No Syncope Abdominal/Gastrointestinal: No Abdominal Pain, No Nausea, No Vomiting, No Diarrhea Genitourinary Symptoms: No Dysuria, No Hematuria, No Flank Pain Musculoskeletal: No Back Pain, No Neck Pain Skin: No Rash Neurological: No Dizziness, No Focal Weakness, No Sensory Changes Psychological: No Symptoms Endocrine: No Symptoms Hematologic/Lymphatic: No Easy Bleeding, No Easy Bruising All Other Systems: Reviewed and Negative - Past Medical History Pertinent Past Medical History: Yes Neurological History: Peripheral Neuropathy ENT History: No Pertinent History Cardiac History: Angina, Arrhythmia, Congestive Heart Failure, Coronary Artery Disease, Hypertension Respiratory History: CHF, COPD Endocrine Medical History: Diabetes Type II, Hypothyroidism Musculoskeletal History: Arthritis GI Medical History: No Pertinent History History: Dialysis, Renal Disease Psycho-Social History: No Pertinent History Female Reproductive Disorders: No Pertinent History Other Medical History: afib, cryo to cervic for precancerous cells - Past Surgical History Past Surgical History: Yes Neuro Surgical History: No Pertinent History Cardiac: Cardiac Catheterization, Cardiac Stent Respiratory: No Pertinent History Gastrointestinal: Cholecystectomy Genitourinary: No Pertinent History Musculoskeletal: No Pertinent History Female Surgical History: Tubal Ligation Other Surgical History: skin grafts to upper thighs as a child, heart stent x2 - Social History Smoking Status: Never smoker Exposure to second hand smoke: No Alcohol Use: None Drug Use: none Patient Lives Alone: No Significant Family History: heart disease, diabetes - Female History Hx Now: No - Nursing Vital Signs Nursing Vital Signs: Initial Vital Signs Temperature 98.0 F 06/08/19 22:24 Pulse Rate 60 06/08/19 22:24 Respiratory Rate 18 06/08/19 22:24 Blood Pressure 193/64 06/08/19 22:24 O2 Sat by Pulse Oximetry 98 06/08/19 22:24 Pain Scale Pain Intensity 0 - Physical Exam General Appearance: no apparent distress, alert Eye Exam: PERRL/EOMI, eyes nml inspection Ears, Nose, Throat Exam: normal ENT inspection, moist mucous membranes Neck Exam: normal inspection, non-tender, supple, full range of motion Respiratory Exam: normal breath sounds, airway intact, crackles/rales (crackles bilaterally at the bases), No chest tenderness, No respiratory distress, No diminished breath sounds, No accessory muscle use, No prolonged expirations, No rhonchi, No wheezing, No stridor Cardiovascular Exam: regular rate/rhythm, normal heart sounds, normal peripheral pulses Gastrointestinal/Abdomen Exam: soft, normal bowel sounds, No tenderness, No distention, No mass, No rebound Back Exam: normal inspection, No CVA tenderness, No vertebral tenderness Extremity Exam: normal inspection, normal range of motion Neurologic Exam: alert, oriented x 3, cooperative, normal mood/affect, sensation nml, No motor deficits Skin Exam: normal color, warm, dry Lymphatic Exam: No adenopathy SpO2 Interpretation: normal SpO2: 98 O2 Delivery: Room Air - Course Nursing assessment & vital signs reviewed: Yes EKG Interpreted by Me: RATE (60), Sinus Rhythm, NORMAL AXIS, NORMAL INTERVALS, NORMAL QRS, NORMAL ST-T, Other (no appreciable change in comparison to EKG from 05/25/2019) Ordered Tests: Active Orders 24 hr Category Date Time Status Business Education Professor STAT Care 06/08/19 23:37 Active EKG-ER Only STAT Care 06/08/19 23:36 Active IV Insertion STAT Care 06/08/19 23:36 Active Pulse Oximetry (ED) STAT Care 06/08/19 23:36 Active CHEST 1 VIEW (PORTABLE) Stat Exams 06/09/19 00:50 Taken CBC W DIFF Stat Lab 06/08/19 23:43 Completed CK-Creatinine Phosphokinase Stat Lab 06/08/19 23:43 Completed CMP Stat Lab 06/08/19 23:43 Completed LIPASE Stat Lab 06/08/19 23:43 Completed Manual Differential NC Stat Lab 06/08/19 23:43 Completed NT PRO BNP Stat Lab 06/08/19 23:43 Completed PROTIME WITH INR Stat Lab 06/08/19 23:43 Completed PTT Stat Lab 06/08/19 23:43 Completed TROPONIN Q3H Lab 06/08/19 23:43 Completed Medication Summary Discontinued Medications Generic Name Dose Route Start Last Admin Trade Name Freq PRN Reason Stop Dose Admin Aspirin 243 mg 06/08/19 23:36 06/08/19 23:40 Baby Aspirin 81 Mg Chew PO 06/08/19 23:37 243 mg STAT ONE Administration Aspirin Confirm 06/08/19 23:39 Baby Aspirin 81 Mg Chew Administered 06/08/19 23:40 Dose 243 mg .ROUTE .STK-MED ONE Clonidine 0.2 mg 06/09/19 01:52 06/09/19 01:54 Catapres 0.1 Mg PO 06/09/19 01:53 0.2 mg STAT ONE Administration Clonidine Confirm 06/09/19 01:54 Catapres 0.1 Mg Administered 06/09/19 01:55 Dose 0.2 mg .ROUTE .STK-MED ONE Lab/Rad Data: Laboratory Result Diagrams 06/08/19 23:43 06/08/19 23:43 Laboratory Results 06/08/19 06/08/19 06/08/19 Range/Units 23:43 23:43 23:43 WBC (4.0-10.5) K/mm3 RBC (4.1-5.4) M/mm3 Hgb (12.0-16.0) gm/dl Hct (35-47) % MCV (78-100) fl MCH (26-32) pg MCHC (32-36) g/dl RDW (11.5-14.0) % Plt Count (150-450) K/mm3 MPV (6-9.5) fl Segmented Neutrophils (36.0-66.0) % Lymphocytes (Manual) (24-44) % Monocytes (Manual) (0.0-12.0) % Eosinophils (Manual) (0.00-3.0) % Platelet Estimate (NORMAL) RBC Morphology PT 17.5 H (9.95-12.35) SECONDS INR 1.54 (0.8-3.0) APTT 34.3 (25.3-37.0) SECONDS Sodium 141 (137-145) mmol/L Potassium 4.7 (3.5-5.1) mmol/L Chloride 114 H (98-107) mmol/L Carbon Dioxide 19 L (22-30) mmol/L Anion Gap 12.3 (5-15) MEQ/L BUN 39 H (7-17) mg/dL Creatinine 3.47 H (0.52-1.04) mg/dL Estimated GFR 13.8 ML/MIN Glucose 197 H (74-106) mg/dL Calcium 8.7 (8.4-10.2) mg/dL Total Bilirubin 0.20 (0.2-1.3) mg/dL AST 12 L (14-36) U/L ALT 9 (0-35) U/L Alkaline Phosphatase 73 (38-126) U/L Creatine Kinase 45 (30-135) U/L Troponin I (0.000-0.034) ng/mL NT-Pro-B Natriuret Pep 93005 H (0-900) pg/mL Serum Total Protein 5.1 L (6.3-8.2) g/dL Albumin 2.2 L (3.5-5.0) g/dL Lipase 32 (23-300) U/L 06/08/19 06/08/19 Range/Units 23:43 23:43 WBC 7.3 (4.0-10.5) K/mm3 RBC 2.98 L (4.1-5.4) M/mm3 Hgb 8.2 L (12.0-16.0) gm/dl Hct 26.6 L (35-47) % MCV 89.3 (78-100) fl MCH 27.5 (26-32) pg MCHC 30.8 L (32-36) g/dl RDW 14.2 H (11.5-14.0) % Plt Count 53 L (150-450) K/mm3 MPV 13.1 H (6-9.5) fl Segmented Neutrophils 78 H (36.0-66.0) % Lymphocytes (Manual) 19 L (24-44) % Monocytes (Manual) 1 (0.0-12.0) % Eosinophils (Manual) 2 (0.00-3.0) % Platelet Estimate DECREASED (NORMAL) RBC Morphology NORMAL PT (9.95-12.35) SECONDS INR (0.8-3.0) APTT (25.3-37.0) SECONDS Sodium (137-145) mmol/L Potassium (3.5-5.1) mmol/L Chloride (98-107) mmol/L Carbon Dioxide (22-30) mmol/L Anion Gap (5-15) MEQ/L BUN (7-17) mg/dL Creatinine (0.52-1.04) mg/dL Estimated GFR ML/MIN Glucose (74-106) mg/dL Calcium (8.4-10.2) mg/dL Total Bilirubin (0.2-1.3) mg/dL AST (14-36) U/L ALT (0-35) U/L Alkaline Phosphatase (38-126) U/L Creatine Kinase (30-135) U/L Troponin I < 0.012 (0.000-0.034) ng/mL NT-Pro-B Natriuret Pep (0-900) pg/mL Serum Total Protein (6.3-8.2) g/dL Albumin (3.5-5.0) g/dL Lipase (23-300) U/L - Progress Progress: re-examined Air Movement: good Progress Note: 06/09/19 02:24 No chest pain during her time in the emergency department. Blood pressure improved after oral clonidine. 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 Blood Culture(s) Obtained: No Antibiotics given: No Counseled pt/family regarding: lab results, diagnosis, need for follow-up, rad results - Departure Departure Disposition: Home Clinical Impression: Acute chest pain Anemia Qualifiers: Anemia type: due to chronic kidney disease Chronic kidney disease stage: stage 5, not on chronic dialysis Qualified Code(s): N18.5 - Chronic kidney disease, stage 5; D63.1 - Anemia in chronic kidney disease HTN (hypertension) Qualifiers: Hypertension type: unspecified Qualified Code(s): I10 - Essential (primary) hypertension Chronic kidney disease (CKD) Qualifiers: Chronic kidney disease stage: stage 5, not on chronic dialysis Qualified Code(s ): N18.5 - Chronic kidney disease, stage 5 Condition: Good Critical Care Time: No Referrals: [facility] [Primary Care Provider] - 06/09/19 Instructions: Chest Pain (DC), Chronic Kidney Disease (DC), High Blood Pressure (DC), Anemia of Chronic Disease (DC) Additional Instructions: return immediately back to the emergency department if you have any new chest pain, new shortness of breath, new back pain, or any other concerning signs or symptoms that were not present during today's visit for immediate reevaluation in the emergency department.
[2019-06-08] MEDS ORDERED: BABY ASPIRIN 81 MG CHEW PO ONE (23:36)
[2019-06-08] MEDS ORDERED: BABY ASPIRIN 81 MG CHEW ONE (23:39)
[2019-06-08 23:44] LABS: Hematocrit 26.6 % (35-47); Hemoglobin 8.2 gm/dl (12.0-16.0); Mean Cell Volume 89.3 fl (78-100); Mean Corpuscular Hemoglobin 27.5 pg (26-32); Mean Corpuscular Hgb Concent. 30.8 g/dl (32-36); Mean Platelet Volume 13.1 fl (6-9.5); Platelet Count 53 K/mm3 (150-450); Red Blood Count 2.98 M/mm3 (4.1-5.4); Red Cell Distribution Width 14.2 % (11.5-14.0); White Blood Count 7.3 K/mm3 (4.0-10.5)
[2019-06-08 23:52] LABS: INR 1.54 (0.8-3.0); PROTIME 17.5 SECONDS (9.95-12.35)
[2019-06-08 23:54] LABS: PTT 34.3 SECONDS (25.3-37.0)
[2019-06-09 00:04] LABS: ALBUMIN 2.2 g/dL (3.5-5.0); ANION GAP 12.3 MEQ/L (5-15); BILIRUBIN,TOTAL 0.2 mg/dL (0.2-1.3); Calcium 8.7 mg/dL (8.4-10.2); Creatinine 1 3.47 mg/dL (0.52-1.04); Potassium 4.7 mmol/L (3.5-5.1); Total Protein 5.1 g/dL (6.3-8.2)
[2019-06-09 00:41] LABS: Eosinophil 2 % (0.00-3.0); Lymphocytes 19 % (24-44); Monocyte 1 % (0.0-12.0); Neutrophils 78 % (36.0-66.0); Platelet Estimate DECREASED (NORMAL); Total Cells Counted 100
[2019-06-09 01:28] VITALS: O2SAT 98
[2019-06-09] MEDS ORDERED: Catapres 0.1 MG PO ONE (01:52)
[2019-06-09] MEDS ORDERED: Catapres 0.1 MG ONE (01:54)
[2019-06-09 02:34] VITALS: BP 170/60; PULSE 57
--- NOTE | 2019-06-09 09:29 | XRAY ---
Indication: Chest pain. Comparison: May 25, 2019. Portable chest again demonstrates interstitial edema and small bilateral effusions including fluid in the right minor fissure and new focus right base. Heart is not enlarged again with right-sided dialysis catheter. Remaining heart and lungs unremarkable.
== END 2019-06-09 02:40 | disposition home or self-care (01) ==
LOC: ED 22:20
DX: R07.9 Chest pain, unspecified (principal); I12.0 Hypertensive chronic kidney disease with stage 5 chronic kidney disease or end stage renal disease; N18.5 Chronic kidney disease, stage 5; D63.1 Anemia in chronic kidney disease
CPT/HCPCS: 36000; 36415; 71045; 80053; 82550; 83690; 83880; 84484; 85025; 85610; 85730; 93005; 93041; 94760; 99284; A9270-GY

== ENCOUNTER 2019-09-27 22:25 | Observation (INO) | payer MEDICARE ==
[2019-09-27] MEDS ORDERED: Sodium Chloride 0.9% 1000 ML 1,000 ML IV STA (22:34)
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
[2019-09-27 23:10] LABS: Hematocrit 30.6 % (35-47); Hemoglobin 9.2 gm/dl (12.0-16.0); Mean Cell Volume 88.7 fl (78-100); Mean Corpuscular Hemoglobin 26.7 pg (26-32); Mean Corpuscular Hgb Concent. 30.1 g/dl (32-36); Red Blood Count 3.45 M/mm3 (4.1-5.4); Red Cell Distribution Width 13.7 % (11.5-14.0); White Blood Count 4.7 K/mm3 (4.0-10.5)
[2019-09-27 23:12] LABS: Platelet Count 23 K/mm3 (150-450)
[2019-09-27 23:13] LABS: ALBUMIN 2.2 g/dL (3.5-5.0); ANION GAP 6.6 MEQ/L (5-15); BILIRUBIN,TOTAL 0.4 mg/dL (0.2-1.3); Calcium 8.1 mg/dL (8.4-10.2); Creatinine 1 2.78 mg/dL (0.52-1.04); Potassium 4.7 mmol/L (3.5-5.1); Total Protein 5.1 g/dL (6.3-8.2)
[2019-09-27 23:35] LABS: Appearance CLEAR (CLEAR); Bilirubin NEGATIVE (NEGATIVE); Blood NEGATIVE Ery/ul (0-5); Glucose 50 mg/dL (NEGATIVE); Ketones NEGATIVE (NEGATIVE); Leukocyte Esterase NEGATIVE (NEGATIVE); Nitrite NEGATIVE (NEGATIVE); Protein,Urine Dip NEGATIVE (Negative); Specific Gravity 1.005 (1.005-1.025); Urobilinogen NORMAL mg/dL (0-1)
[2019-09-27 23:39] LABS: RBC NONE SEEN /HPF (0-2); WBC NONE SEEN /HPF (0-5)
[2019-09-28] MEDS ORDERED: NovoLOG Insulin SQ PRN (00:15)
[2019-09-28] MEDS: Sodium Chloride 0.9% 1000 ML 1,000 ML IV SCH ×3 (00:40→21:58)
[2019-09-28 01:04] LABS: Eosinophil 6 % (0.00-3.0); Lymphocytes 14 % (24-44); Monocyte 16 % (0.0-12.0); Neutrophils 64 % (36.0-66.0); Platelet Estimate DECREASED (NORMAL); Total Cells Counted 100
[2019-09-28] MEDS: Lopressor 50 MG PO SCH ×3 (04:33→20:14)
[2019-09-28] MEDS: Catapres 0.1 MG PO SCH ×4 (04:34→20:14)
[2019-09-28] MEDS ORDERED: LOPRESSOR 5 MG/5 ML INJECTION IV ONE ×2 (04:42→07:34)
[2019-09-28 05:11] LABS: Absolute Neutrophil Ct (ANC) 2.81 (1.4-6.9); BASOPHIL % 0.7 % (0.0-0.4); Basophil (Absolute #) 0.03 (0-0.4); Eosinophil % 3.8 % (0.00-5.0); Eosinophil (Absolute #) 0.16 (0-0.5); Hematocrit 28.1 % (35-47); Hemoglobin 8.4 gm/dl (12.0-16.0); Lymphocytes % 18.9 % (24.0-44.0); Mean Cell Volume 88.9 fl (78-100); Mean Corpuscular Hemoglobin 26.6 pg (26-32); Mean Corpuscular Hgb Concent. 29.9 g/dl (32-36); Mean Platelet Volume 12.8 fl (7.5-11.0); Monocyte (Absolute #) 0.44 (0.0-1.3); Monocytes % 10.4 % (0.0-12.0); Neutrophil % 66.2 % (36.0-66.0); Platelet Count 62 K/mm3 (150-450); Red Blood Count 3.16 M/mm3 (4.1-5.4); Red Cell Distribution Width 13.5 % (11.5-14.0); White Blood Count 4.2 K/mm3 (4.0-10.5)
[2019-09-28 05:28] LABS: ALBUMIN 1.9 g/dL (3.5-5.0); ANION GAP 3.9 MEQ/L (5-15); BILIRUBIN,TOTAL 0.3 mg/dL (0.2-1.3); Calcium 7.8 mg/dL (8.4-10.2); Creatinine 1 2.95 mg/dL (0.52-1.04); Potassium 4.1 mmol/L (3.5-5.1); Total Protein 4.4 g/dL (6.3-8.2)
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
[2019-09-28 06:39] LABS: Slide Review 1 YES
--- NOTE | 2019-09-28 10:10 | XRAY ---
Indication: Acute mental status change. Possible sepsis. Dehydration. Multiple contiguous axial images obtained through the head without contrast. Comparison: October 23, 2017. Age-appropriate global atrophy and minimal periventricular degenerative microvascular ischemia. 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 No acute intracranial hemorrhage, hydrocephalus, or mass effect. 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 Talley-white matter differentiation preserved. Bony calvarium intact. Visualized paranasal sinuses and mastoid air cells are clear. Impression: 1. 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 2. 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 3. No acute intracranial abnormalities. Comment: Preliminary interpretation was made by [facility]. No discrepancy.
--- NOTE | 2019-09-28 10:12 | XRAY ---
Indication: Acute mental status change. Possible sepsis. Comparison: June 09, 2019. Portable chest again demonstrates mild interstitial edema with small right effusion including fluid in the minor fissure. New right middle lobe subsegmental atelectasis/scarring. Remaining heart and lungs unremarkable with stable right dialysis catheter. Bony thorax intact.
[2019-09-28] MEDS ORDERED: GlucaGen 1 MG IM SCH (14:00)
[2019-09-28] MEDS ORDERED: NON-FORMULARY ITEM (Cholecalciferol (Vitamin D3) [Vitamin D3] 1 CAP) PO SCH (14:00)
[2019-09-28] MEDS ORDERED: ATARAX 25 MG PO SCH (14:30)
[2019-09-28] MEDS: NEURONTIN 300 MG PO SCH ×2 (15:33→20:20)
[2019-09-28] MEDS ORDERED: NON-FORMULARY ITEM (Hydralazine Hcl [Hydralazine Hcl] 50 MG) PO SCH (17:00)
[2019-09-28] MEDS ORDERED: PROVENTIL 2.5 MG/3 ML NEB IH PRN (19:54)
[2019-09-28] MEDS ORDERED: Ventolin Hfa MDI IH PRN (19:55)
[2019-09-28] MEDS: BUMEX 1 MG PO SCH (20:01)
[2019-09-28] MEDS: SODIUM BICARBONATE PO SCH ×2 (20:01→20:22)
[2019-09-28] MEDS: Trandate 100 MG PO SCH (20:11)
[2019-09-28] MEDS: FEOSOL 325 MG PO SCH (20:15)
[2019-09-28] MEDS: Apresoline 25 MG TABLET PO SCH (20:17)
[2019-09-28] MEDS: ELIQUIS 2.5 MG TABLET PO SCH (20:20)
[2019-09-28] MEDS: Lantus Insulin SQ SCH (21:59)
[2019-09-28] MEDS ORDERED: INSULIN DETEMIR 6 UNIT SQ SCH (22:00)
[2019-09-28] MEDS ORDERED: LABETALOL HCL PO SCH (22:00)
[2019-09-29] MEDS ORDERED: LOPRESSOR 5 MG/5 ML INJECTION IV PRN ×2 (04:32→06:45)
[2019-09-29] MEDS ORDERED: Ventolin Hfa MDI IH PRN (07:00)
[2019-09-29] MEDS: Sodium Chloride 0.9% 1000 ML 1,000 ML IV SCH ×2 (09:31→19:30)
[2019-09-29] MEDS: ECOTRIN 81 MG PO SCH (10:09)
[2019-09-29] MEDS: Catapres 0.1 MG PO SCH ×3 (10:09→21:38)
[2019-09-29] MEDS: Apresoline 25 MG TABLET PO SCH ×4 (10:09→21:37)
[2019-09-29] MEDS: BUMEX 1 MG PO SCH ×2 (10:09→17:26)
[2019-09-29] MEDS: NEURONTIN 300 MG PO SCH ×3 (10:10→21:37)
[2019-09-29] MEDS: ELIQUIS 2.5 MG TABLET PO SCH ×2 (10:10→21:38)
[2019-09-29] MEDS: NORVASC 5 MG PO SCH (10:10)
[2019-09-29] MEDS: FEOSOL 325 MG PO SCH ×2 (10:10→21:37)
[2019-09-29] MEDS: Lopressor 50 MG PO SCH ×2 (10:10→21:37)
[2019-09-29] MEDS: Protonix 40MG Tablet PO SCH (10:11)
[2019-09-29] MEDS: SODIUM BICARBONATE PO SCH ×3 (10:11→21:38)
[2019-09-29] MEDS: SYNTHROID 25 MCG PO SCH (10:12)
[2019-09-29] MEDS: Trandate 100 MG PO SCH ×2 (10:12→21:37)
[2019-09-29 10:23] LABS: BASOPHIL % 1.2 % (0.0-0.4); Basophil (Absolute #) 0.05 (0-0.4); Eosinophil % 2.5 % (0.00-5.0); Hematocrit 30.4 % (35-47); Hemoglobin 9.2 gm/dl (12.0-16.0); Lymphocytes % 14.8 % (24.0-44.0); Mean Cell Volume 88.6 fl (78-100); Mean Corpuscular Hemoglobin 26.8 pg (26-32); Mean Corpuscular Hgb Concent. 30.3 g/dl (32-36); Mean Platelet Volume 13.7 fl (7.5-11.0); Monocyte (Absolute #) 0.31 (0.0-1.3); Monocytes % 7.6 % (0.0-12.0); Neutrophil % 73.9 % (36.0-66.0); Red Blood Count 3.43 M/mm3 (4.1-5.4); Red Cell Distribution Width 13.6 % (11.5-14.0); White Blood Count 4.1 K/mm3 (4.0-10.5)
[2019-09-29 10:26] LABS: ANION GAP 7.8 MEQ/L (5-15); BILIRUBIN,TOTAL 0.4 mg/dL (0.2-1.3); Calcium 7.9 mg/dL (8.4-10.2); Creatinine 1 3.21 mg/dL (0.52-1.04); Potassium 4.5 mmol/L (3.5-5.1); Total Protein 4.7 g/dL (6.3-8.2)
[2019-09-29 10:45] LABS: Platelet Count 103 K/mm3 (150-450)
--- NOTE | 2019-09-29 12:30 | PCM.NOTE ---
Date and Time: 09/29/19 1229 Subjective Assessment: Patient is very confused. - Review of Systems Constitutional: No Fever, No Chills Eyes: No Symptoms Ears, Nose, & Throat: No Symptoms Respiratory: No Cough, No Short Of Breath Cardiac: No Chest Pain, No Edema, No Syncope Abdominal/Gastrointestinal: No Abdominal Pain, No Nausea, No Vomiting, No Diarrhea Genitourinary Symptoms: No Dysuria Musculoskeletal: No Back Pain, No Neck Pain Skin: No Rash Neurological: No Dizziness, No Focal Weakness, No Sensory Changes Psychological: No Symptoms Endocrine: No Symptoms Hematologic/Lymphatic: No Symptoms Immunological/Allergic: No Symptoms Objective Exam General Appearance: no apparent distress, alert Neurologic Exam: alert, oriented x 3, cooperative, normal mood/affect, nml cerebellar function, sensation nml, No motor deficits Skin Exam: normal color, warm, dry Eye Exam: PERRL, EOMI, eyes nml inspection Ears, Nose, Throat Exam: normal ENT inspection, pharynx normal, moist mucous membranes Neck Exam: normal inspection, non-tender, supple, full range of motion Respiratory Exam: normal breath sounds, lungs clear, No respiratory distress Cardiovascular Exam: regular rate/rhythm, normal heart sounds Gastrointestinal/Abdomen Exam: soft, No tenderness, No mass Extremity Exam: normal inspection, normal range of motion Back Exam: normal inspection, normal range of motion, No CVA tenderness, No vertebral tenderness Pelvic Exam: deferred Rectal Exam: deferred OBJECTIVE DATA Vital Signs: Vital Signs - 24 hr Temp Pulse Resp BP Pulse Ox 09/29/19 08:07 94 L 09/29/19 07:51 98.3 F 58 L 18 193/74 96 09/29/19 04:00 98.9 F 59 L 20 224/90 94 L 09/28/19 23:34 98.3 F 70 20 190/86 96 09/28/19 20:58 61 15 96 09/28/19 20:00 98.0 F 68 20 210/90 97 09/28/19 16:00 98.0 F 58 L 18 151/67 98 Pain Assessment - Last Documented Pain Intensity 0 Pain Scale Used [facility] Intake and Output: Intake & Output 09/27/19 09/28/19 09/29/19 09/30/19 11:59 11:59 11:59 11:59 Intake Total 433 2580 Output Total 1125 725 Balance -692 1855 Weight 66.8 kg Lab Results: Accuchecks Date 09/28/19 Date 09/28/19 Time 21:30 Time 16:30 Accucheck Value: 74 Accucheck Value: 97 Accucheck Value: 86 Lab Results-Last 24 Hours 09/29/19 09/29/19 Range/Units 10:05 10:05 WBC 4.1 (4.0-10.5) K/mm3 RBC 3.43 L (4.1-5.4) M/mm3 Hgb 9.2 L (12.0-16.0) gm/dl Hct 30.4 L (35-47) % MCV 88.6 (78-100) fl MCH 26.8 (26-32) pg MCHC 30.3 L (32-36) g/dl RDW 13.6 (11.5-14.0) % Plt Count 103 L D (150-450) K/mm3 MPV 13.7 H (7.5-11.0) fl Gran % 73.9 H (36.0-66.0) % Eos # (Auto) 0.10 (0-0.5) Absolute Lymphs (auto) 0.60 L (1.0-4.6) Absolute Monos (auto) 0.31 (0.0-1.3) Lymphocytes % 14.8 L (24.0-44.0) % Monocytes % 7.6 (0.0-12.0) % Eosinophils % 2.5 (0.00-5.0) % Basophils % 1.2 (0.0-0.4) % Absolute Granulocytes 3.00 (1.4-6.9) Basophils # 0.05 (0-0.4) Sodium 140 (137-145) mmol/L Potassium 4.5 (3.5-5.1) mmol/L Chloride 114 H (98-107) mmol/L Carbon Dioxide 23 (22-30) mmol/L Anion Gap 7.8 (5-15) MEQ/L BUN 22 H (7-17) mg/dL Creatinine 3.21 H (0.52-1.04) mg/dL Estimated GFR 15.0 ML/MIN Glucose 114 H (74-106) mg/dL Calcium 7.9 L (8.4-10.2) mg/dL Total Bilirubin 0.40 (0.2-1.3) mg/dL AST 19 (14-36) U/L ALT 9 (0-35) U/L Alkaline Phosphatase 61 (38-126) U/L Serum Total Protein 4.7 L (6.3-8.2) g/dL Albumin 2.0 L (3.5-5.0) g/dL Radiology Exams: Radiology Procedures Category Date Time Status CHEST 1 VIEW (PORTABLE) Stat Exams 09/27/19 22:35 Completed HEAD WITHOUT CONTRAST [CT] Stat Exams 09/27/19 22:37 Completed Assessment/Plan (1) Altered mental status Current Visit: Yes Status: Acute Qualifiers: Altered mental status type: disorientation Qualified Code(s): R41.0 - Disorientation, unspecified Code(s): R41.82 - ALTERED MENTAL STATUS, UNSPECIFIED (2) Chronic kidney disease (CKD) Current Visit: Yes Status: Chronic Qualifiers: Chronic kidney disease stage: on chronic dialysis Qualified Code(s): N18.6 - End stage renal disease; Z99.2 - Dependence on renal dialysis Code(s): N18.9 - CHRONIC KIDNEY DISEASE, UNSPECIFIED (3) HTN (hypertension) Current Visit: No Status: Acute Code(s): I10 - ESSENTIAL (PRIMARY) HYPERTENSION (4) Renal failure (ARF), acute on chronic Current Visit: No Status: Acute Qualifiers: Chronic kidney disease stage: on chronic dialysis Code(s): N17.9 - ACUTE KIDNEY FAILURE, UNSPECIFIED; N18.9 - CHRONIC KIDNEY DISEASE, UNSPECIFIED
[2019-09-29 14:22] LABS: Slide Review 1 YES
[2019-09-29] MEDS: Lantus Insulin SQ SCH (21:38)
[2019-09-30] MEDS: Sodium Chloride 0.9% 1000 ML 1,000 ML IV SCH (05:25)
[2019-09-30] MEDS: SYNTHROID 25 MCG PO SCH (10:20)
[2019-09-30] MEDS: ECOTRIN 81 MG PO SCH (10:21)
[2019-09-30] MEDS: FEOSOL 325 MG PO SCH (10:21)
[2019-09-30] MEDS: Trandate 100 MG PO SCH (10:21)
[2019-09-30] MEDS: Protonix 40MG Tablet PO SCH (10:21)
[2019-09-30] MEDS: NORVASC 5 MG PO SCH (10:21)
[2019-09-30] MEDS: ELIQUIS 2.5 MG TABLET PO SCH (10:21)
[2019-09-30] MEDS: NEURONTIN 300 MG PO SCH ×2 (10:21→16:12)
[2019-09-30] MEDS: Apresoline 25 MG TABLET PO SCH ×2 (10:21→13:29)
[2019-09-30] MEDS: BUMEX 1 MG PO SCH (10:21)
[2019-09-30] MEDS: Lopressor 50 MG PO SCH (10:21)
[2019-09-30] MEDS: Catapres 0.1 MG PO SCH ×2 (10:22→16:12)
[2019-09-30] MEDS: SODIUM BICARBONATE PO SCH ×2 (11:19→16:13)
[2019-09-30] MEDS ORDERED: ATROPINE SULFATE EYE DROPS PO PRN (11:44)
--- NOTE | 2019-09-30 12:58 | PCM.DS ---
Discharge Summary Date of Admission: 09/28/19 00:01 Admitting Physician: CANDIE QUINTERO Primary Care Provider: [facility] Allergies Allergies codeine [Codeine] Allergy (Severe, Verified 06/08/19 22:39) unsure propoxyphene HCl [From Darvon] Allergy (Severe, Verified 06/08/19 22:39) Tightness of Throat dabigatran etexilate [From Pradaxa] Allergy (Verified 06/08/19 22:39) vision loss morphine Allergy (Verified 06/08/19 22:39) Penicillins Allergy (Verified 06/08/19 22:39) unsure sertraline Adverse Reaction (Intermediate, Verified 09/27/19 22:44) hallucinations Hospital Summary - Hospital Course Hospital Course: Chief Complaint Diagnosis Altered Mental Status for 1 day Allergies Allergy/AdvReac Type Severity Reaction Status Date / Time codeine [Codeine] Allergy Severe Verified 06/08/19 22:39 propoxyphene HCl Allergy Severe Tightness Verified 06/08/19 22:39 [From Darvon] of Throat dabigatran etexilate Allergy Verified 06/08/19 22:39 [From Pradaxa] morphine Allergy Verified 06/08/19 22:39 Penicillins Allergy Verified 06/08/19 22:39 sertraline AdvReac Intermediate Verified 09/27/19 22:44 Vital Signs (Last 24 hours) Temp Pulse Resp BP Pulse Ox 09/30/19 12:40 98.2 F 56 L 20 143/63 95 09/30/19 07:47 97.8 F 66 18 147/70 96 09/30/19 04:00 97.7 F 60 18 152/69 97 09/30/19 00:00 97.7 F 59 L 20 184/77 96 09/29/19 20:00 97.6 F 61 20 178/78 98 09/29/19 16:00 97.6 F 63 18 200/80 98 Home Medications Medication Instructions Recorded Confirmed Last Taken Type Albuterol Sulfate 3 ml IH TID PRN 09/28/19 09/28/19 Unknown History Albuterol Sulfate Mdi [Proair 2 puffs IH QID PRN 09/28/19 09/28/19 Unknown History Hfa MDI] Amlodipine Besylate 10 mg PO DAILY 09/28/19 09/28/19 Unknown History Apixaban [Eliquis] 5 mg PO BID 09/28/19 09/28/19 Unknown History Aspirin EC 81 mg [Ecotrin 81 81 mg PO DAILY 09/28/19 09/28/19 Unknown History mg] Bumetanide 1 mg PO BID 09/28/19 09/28/19 Unknown History Cholecalciferol (Vitamin D3) 1 cap PO WEEKLY 09/28/19 09/28/19 Unknown History [Vitamin D3] Ferrous Sulfate 325 mg PO BID 09/28/19 09/28/19 Unknown History Gabapentin 300 mg PO TID 09/28/19 09/28/19 Unknown History Glucagon 1 mg [GlucaGen 1 MG] 1 mg IM UD 09/28/19 09/28/19 Unknown History Hydralazine HCl 50 mg PO QID 09/28/19 09/28/19 Unknown History Insulin Detemir [Levemir] 6 units SQ HS 09/28/19 09/28/19 Unknown History Labetalol HCl 1 tab PO BID 09/28/19 09/28/19 Unknown History Levothyroxine Sodium 25 Mcg 25 mcg PO DAILY 09/28/19 09/28/19 Unknown History [Synthroid 25 Mcg] Metoprolol Tartrate 50 mg PO BID 09/28/19 09/28/19 Unknown History Omeprazole 40 mg PO DAILY 09/28/19 09/28/19 Unknown History Pantoprazole Sodium 40 mg PO DAILY 09/28/19 09/28/19 Unknown History Sodium Bicarbonate 3 tab PO TID 09/28/19 09/28/19 Unknown History cloNIDine HCL [Clonidine HCl] 0.1 mg PO TID 09/28/19 09/28/19 Unknown History Current Medications Generic Name Dose Route Start Last Admin Trade Name Freq PRN Reason Stop Dose Admin Albuterol Sulfate 2.5 mg 09/28/19 19:54 Proventil 2.5 Mg/3 Ml Neb IH 10/28/19 19:53 Q6H PRN PRN SHORTNESS OF BREATH/WHEEZING Albuterol Sulfate 0 gm 09/29/19 07:00 Ventolin Hfa Mdi IH 10/28/19 19:54 Q6H PRN PRN SHORTNESS OF BREATH/WHEEZING Amlodipine Besylate 10 mg 09/29/19 10:00 09/30/19 10:21 Norvasc 5 Mg PO 10/29/19 09:59 10 mg DAILY ED Administration Apixaban 5 mg 09/28/19 22:00 09/30/19 10:21 Eliquis 2.5 Mg Tablet PO 10/28/19 21:59 5 mg BID ED Administration Aspirin 81 mg 09/29/19 10:00 09/30/19 10:21 Ecotrin 81 Mg PO 10/29/19 09:59 81 mg DAILY ED Administration Atropine Sulfate 0.2 ml 09/30/19 11:44 Atropine Sulfate Eye Drops PO 10/30/19 11:43 UD PRN terminal secretions Bumetanide 1 mg 09/28/19 17:00 09/30/19 10:21 Bumex 1 Mg PO 10/28/19 16:59 1 mg BID DIURETIC ED Administration Clonidine 0.1 mg 09/28/19 15:00 09/30/19 10:22 Catapres 0.1 Mg PO 10/28/19 14:59 0.1 mg TID ED Administration Ergocalciferol 50,000 unit 10/01/19 10:00 Vitamin D2 PO 10/31/19 09:59 We@1000 ED Ferrous Sulfate 325 mg 09/28/19 22:00 09/30/19 10:21 Feosol 325 Mg PO 10/28/19 21:59 325 mg BID ED Administration Gabapentin 300 mg 09/28/19 15:00 09/30/19 10:21 Neurontin 300 Mg PO 10/28/19 14:59 300 mg TID ED Administration Glucagon 1 mg 09/28/19 14:00 Glucagen 1 Mg IM 10/28/19 13:59 UD ED Hydralazine HCl 50 mg 09/28/19 22:00 09/30/19 10:21 Apresoline 25 Mg Tablet PO 10/28/19 21:59 50 mg QID ED Administration Sodium Chloride 1,000 mls @ 100 mls/hr 09/27/19 22:45 09/30/19 05:25 Sodium Chloride 0.9% 1000 Ml IV 10/27/19 22:44 100 mls/hr .Q10H ED Administration Insulin Aspart 0 unit 09/28/19 00:15 09/29/19 22:23 Novolog Insulin SQ 10/28/19 00:14 2 unit UD PRN Administration HYPERGLYCEMIA Insulin Glargine 6 unit 09/28/19 22:00 09/29/19 21:38 Lantus Insulin SQ 10/28/19 21:59 6 unit HS ED Administration Labetalol HCl 200 mg 09/28/19 22:00 09/30/19 10:21 Trandate 100 Mg PO 10/28/19 21:59 200 mg BID ED Administration Levothyroxine Sodium 25 mcg 09/29/19 10:00 09/30/19 10:20 Synthroid 25 Mcg PO 10/29/19 09:59 25 mcg DAILY ED Administration Metoprolol Tartrate 50 mg 09/28/19 22:00 09/30/19 10:21 Lopressor 50 Mg PO 10/28/19 21:59 50 mg BID ED Administration Metoprolol Tartrate 5 mg 09/29/19 06:45 Lopressor 5 Mg/5 Ml Injection IV 10/29/19 06:44 Q6H PRN PRN HYPERTENSION Non-Formulary Medication 0 tab 09/28/19 15:00 09/30/19 11:19 Sodium Bicarbonate PO 10/28/19 14:59 3 tab TID ED Administration Pantoprazole Sodium 40 mg 09/29/19 10:00 09/30/19 10:21 Protonix 40mg Tablet PO 10/29/19 09:59 40 mg DAILY ED Administration Tobramycin/Dexamethasone 0 ml 09/28/19 22:00 09/30/19 11:38 Tobradex Eye Drops OP 10/28/19 21:59 Not Given QID ED Discontinued Medications Generic Name Dose Route Start Last Admin Trade Name Freq PRN Reason Stop Dose Admin Albuterol Sulfate 0 gm 09/28/19 19:55 Ventolin Hfa Mdi IH 10/29/19 00:59 Q6HRT PRN SHORTNESS OF BREATH/WHEEZING Clonidine 0.1 mg 09/28/19 10:00 09/28/19 11:11 Catapres 0.1 Mg PO 10/28/19 09:59 0.1 mg TID ED Administration Hydroxyzine HCl 50 mg 09/28/19 14:30 09/28/19 15:33 Atarax 25 Mg PO 10/28/19 14:29 Not Given QID ED Sodium Chloride 1,000 mls @ 999 mls/hr 09/27/19 22:34 09/27/19 22:55 Sodium Chloride 0.9% 1000 Ml IV 09/27/19 23:34 999 mls/hr .Q1H1M STA Administration Metoprolol Tartrate 50 mg 09/28/19 10:00 09/28/19 11:11 Lopressor 50 Mg PO 10/28/19 09:59 50 mg BID ED Administration Metoprolol Tartrate 5 mg 09/28/19 04:42 09/28/19 04:48 Lopressor 5 Mg/5 Ml Injection IV 09/28/19 04:43 5 mg STAT ONE Administration Metoprolol Tartrate 5 mg 09/28/19 07:34 09/28/19 08:24 Lopressor 5 Mg/5 Ml Injection IV 09/28/19 07:35 5 mg STAT ONE Administration Metoprolol Tartrate 5 mg 09/29/19 04:32 09/29/19 04:37 Lopressor 5 Mg/5 Ml Injection IV 10/29/19 04:44 5 mg Q6H PRN Administration HYPERTENSION Non-Formulary Medication 40 mg 09/29/19 10:00 Omeprazole [Omeprazole] PO 10/29/19 09:59 DAILY ED Intake & Output (Last 24 hours) 09/28/19 09/29/19 09/30/19 10/01/19 11:59 11:59 11:59 11:59 Intake Total 433 2580 3607 Output Total 5282 918 5070 Balance -692 5234 4547 Weight 66.8 kg Microbiology Results (Last 24 hours) 09/27/19 23:28 Catherized Urine Culture - Final <10K NORMAL SKIN GRISELDA PROBABLE SKIN CONTAMINANT Laboratory Results (Last 24 hours) 09/29/19 10:05 Slides for Path Review YES Orders (Last 24 hours) Category Date Time Status Discharge Routine Discharge 09/30/19 Ordered Atropine Sulfate [Atropine Sulfate Eye Drops] Med 09/30/19 11:44 Active 0.2 ml PO UD PRN Ergocalciferol (Vitamin D2) [Vitamin D2] Med 10/01/19 10:00 Active 50,000 unit PO We@1000 Patient Care Notes (Last 24 hours) 09/30/19 11:48 Nursing Note by Melisa Lunsford Pt noted to have a elevated HR at 150, Temp 101, sats 84%. Grimacing noted during patient care, and reported to MD. 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 Feverall given, and oxygen increased for comfort. Family updated on new orders Initialized on 09/30/19 11:48 - END OF NOTE 09/30/19 11:39 Nursing Note by Melisa Lunsford SPoke with Darlenejoshua daughter. She states she is unable to meet the patient home unilt after 5pm and transportation needs to be set up at [facility] today. Will have wardrobe attendant set up transportation Initialized on 09/30/19 11:39 - END OF NOTE 09/30/19 09:47 Case Management Note by Caroline Monzon SPOKE WITH HUY AT [facility], DISCUSSED PT WILL DC HOME TODAY, REMAINED OBSERVATION STATUS. WILL FAX DC INFORMATION WHEN AVAILABLE TO [phone]. Initialized on 09/30/19 09:47 - END OF NOTE 09/29/19 18:30 Nursing Note by Lori Cardenas pt family member concern that pt has not had a bowl movement she was just taken off the bedpain and had a small formed stool with small amount of loose stool with it. pt has reported to have had 2 other small bms today Initialized on 09/29/19 18:30 - END OF NOTE 09/29/19 16:51 Nursing Note by Dk Mckee Pt's BP rechecked manually, 180/62 Initialized on 09/29/19 16:51 - END OF NOTE 09/29/19 15:00 (created 09/30/19 09:48) Case Management Note by Caroline Monzon DISCUSSION WITH DAUGHTER, DAUGHTER REPORTS THAT THEY WISH TO CONTINUE DIALYSIS AT THIS TIME, THEY ARE NOT READY FOR HOSPICE SERVICES. REPORTS THAT THEIR PLAN IS TO RETURN HOME TO PRE EPISODIC LEVEL OF [facility], CONTINUE DIALYSIS, AND CONTINUE WITH [facility] FOR ADDNL SUPPORT AT HOME. Initialized on 09/30/19 09:48 - END OF NOTE - Vitals & Intake/Output Vital Signs: Vital Signs Temperature 98.2 F 09/30/19 12:40 Pulse Rate 56 L 09/30/19 12:40 Respiratory Rate 20 09/30/19 12:40 Blood Pressure 143/63 09/30/19 12:40 O2 Sat by Pulse Oximetry 95 09/30/19 12:40 Intake & Output: Intake & Output 09/28/19 09/29/19 09/30/19 10/01/19 11:59 11:59 11:59 11:59 Intake Total 433 2580 3607 Output Total 0477 517 9080 Balance -692 3885 1317 Weight 66.8 kg - Lab Result Diagrams: 09/29/19 10:05 09/29/19 10:05 Lab Results-Last 24 Hrs: Accuchecks Date 09/30/19 Date 09/29/19 Time 07:30 Time 21:30 Accucheck Value: 134 Accucheck Value: 204 Accucheck Value: 150 Lab Results-Last 24 Hours 09/29/19 Range/Units 10:05 Slides for Path Review YES Micro Results-Entire Visit: Microbiology 09/27/19 23:28 Urine Culture - Final Catherized <10K NORMAL SKIN GRISELDA PROBABLE SKIN CONTAMINANT Accuchecks Date 09/30/19 Date 09/29/19 Time 07:30 Time 21:30 Accucheck Value: 134 Accucheck Value: 204 Accucheck Value: 150 - Procedures and Test Procedures and Tests throughout Hospitalization: Therapy Orders & Screens 09/28/19 22:30 Respiratory Therapy Assessment DAILY Comment: Diagnosis: Altered Mental Status for 1 day 09/28/19 22:31 Peak Expiratory Flow Rate ONCE Comment: Reason For Exam: Diagnosis: Altered Mental Status for 1 day Discharge Exam General Appearance: no apparent distress, alert Neurologic Exam: alert, oriented x 3, cooperative, normal mood/affect, nml cerebellar function, sensation nml, No motor deficits Eye Exam: PERRL, EOMI, eyes nml inspection Ears, Nose, Throat Exam: normal ENT inspection, pharynx normal, moist mucous membranes Neck Exam: normal inspection, non-tender, supple, full range of motion Respiratory Exam: normal breath sounds, lungs clear, No respiratory distress Cardiovascular Exam: regular rate/rhythm, normal heart sounds Gastrointestinal/Abdomen Exam: soft, No tenderness, No mass Pelvic Exam: deferred Rectal Exam: deferred Back Exam: normal inspection, normal range of motion, No CVA tenderness, No vertebral tenderness Extremity Exam: normal inspection, normal range of motion Skin Exam: normal color, warm, dry Final Diagnosis/Problem List - Final Discharge Diagnosis/Problem (1) Altered mental status Current Visit: Yes Status: Resolved Code(s): R41.82 - ALTERED MENTAL STATUS , UNSPECIFIED (2) Chronic kidney disease (CKD) Current Visit: Yes Status: Chronic Code(s): N18.9 - CHRONIC KIDNEY DISEASE, UNSPECIFIED (3) HTN (hypertension) Current Visit: Yes Status: Chronic Code(s): I10 - ESSENTIAL (PRIMARY) HYPERTENSION (4) Renal failure (ARF), acute on chronic Current Visit: No Status: Acute Code(s): N17.9 - ACUTE KIDNEY FAILURE, UNSPECIFIED; N18.9 - CHRONIC KIDNEY DISEASE, UNSPECIFIED - Discharge Discharge Date: 09/30/19 Disposition: Home, Self-Care Condition: Stable Prescriptions: Continue Omeprazole 40 mg PO DAILY Metoprolol Tartrate 50 mg PO BID Levothyroxine Sodium 25 Mcg [Synthroid 25 Mcg] 25 mcg PO DAILY Hydralazine HCl 50 mg PO QID Gabapentin 300 mg PO TID Ferrous Sulfate 325 mg PO BID Cholecalciferol (Vitamin D3) [Vitamin D3] 1 cap PO WEEKLY Bumetanide 1 mg PO BID Aspirin EC 81 mg [Ecotrin 81 mg] 81 mg PO DAILY Apixaban [Eliquis] 5 mg PO BID Pantoprazole Sodium 40 mg PO DAILY Insulin Detemir [Levemir] 6 units SQ HS Albuterol Sulfate 3 ml IH TID PRN PRN Reason: Shortness Of Breath cloNIDine HCL [Clonidine HCl] 0.1 mg PO TID Labetalol HCl 1 tab PO BID Amlodipine Besylate 10 mg PO DAILY Albuterol Sulfate Mdi [Proair Hfa MDI] 2 puffs IH QID PRN PRN Reason: Shortness Of Breath Sodium Bicarbonate 3 tab PO TID Glucagon 1 mg [GlucaGen 1 MG] 1 mg IM UD Instructions: Altered Mental Status (DC) Additional Instructions: [facility] WILL CALL YOU FOR YOUR NEXT HOME VISIT. YOU MAY REACH THEM AT [phone] FOR ANY NEEDS. CALL DIALYSIS FOR YOUR NEXT APPOINTMENT. Follow up with: CANDIE QUINTERO MD [Emergency Provider] - 10/07/19 2:45 pm (george )
[2019-09-30 16:24] VITALS: BP 138/60; PULSE 54; O2SAT 96
[2019-10-01] MEDS ORDERED: VITAMIN D2 PO SCH (10:00)
== END 2019-09-30 17:25 | disposition home or self-care (01) ==
LOC: ED 22:25 → MED SURG 09-28 00:01
PROVIDERS: ADMIT General Practice; ATTEND General Practice
DX: R41.82 Altered mental status, unspecified (principal); N17.9 Acute kidney failure, unspecified; I12.9 Hypertensive chronic kidney disease with stage 1 through stage 4 chronic kidney disease, or unspecified chronic kidney disease; E11.22 Type 2 diabetes mellitus with diabetic chronic kidney disease; Z79.01 Long term (current) use of anticoagulants; Z79.899 Other long term (current) drug therapy; E03.9 Hypothyroidism, unspecified; J44.9 Chronic obstructive pulmonary disease, unspecified; I25.10 Atherosclerotic heart disease of native coronary artery without angina pectoris
CPT/HCPCS: 36415; 51702; 70450; 80053; 81001; 82962; 83036; 83605; 84484; 85025; 87086; 93005; 93041; 93268; 94760; 96360; 99291; G0378; 36000; 71045; 99285; A9270-GY

== ENCOUNTER 2019-10-24 19:17 | Emergency (ER) | payer MEDICARE ==
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
[2019-10-24 20:10] LABS: Hematocrit 36.6 % (35-47); Hemoglobin 11.2 gm/dl (12.0-16.0); Mean Cell Volume 88.4 fl (78-100); Mean Corpuscular Hemoglobin 27.1 pg (26-32); Mean Corpuscular Hgb Concent. 30.6 g/dl (32-36); Mean Platelet Volume 12.8 fl (7.5-11.0); Platelet Count 69 K/mm3 (150-450); Red Blood Count 4.14 M/mm3 (4.1-5.4); Red Cell Distribution Width 15.5 % (11.5-14.0); White Blood Count 15.8 K/mm3 (4.0-10.5)
[2019-10-24 20:13] LABS: INR 1.54 (0.8-3.0); PROTIME 17.6 SECONDS (9.95-12.35)
[2019-10-24 20:37] LABS: Appearance TURBID (CLEAR); Bacteria MODERATE /HPF (NEGATIVE); Bilirubin NEGATIVE (NEGATIVE); Blood SMALL Ery/ul (0-5); Glucose 50 mg/dL (NEGATIVE); Ketones NEGATIVE (NEGATIVE); Leukocyte Esterase LARGE (NEGATIVE); Nitrite NEGATIVE (NEGATIVE); Protein,Urine Dip >=500 (Negative); Specific Gravity 1.017 (1.005-1.025); Urobilinogen NEGATIVE mg/dL (0-1); WBC >100 /HPF (0-5)
[2019-10-24 20:47] LABS: RBC >101 /HPF (0-2)
[2019-10-24 20:52] LABS: INFLUENZA A NEGATIVE (NEGATIVE); INFLUENZA B NEGATIVE (NEGATIVE); RESPIRATORY SYNCTIAL VIRUS NEGATIVE (Negative)
[2019-10-24 21:06] LABS: ALBUMIN 2.3 g/dL (3.5-5.0); ANION GAP 11.9 MEQ/L (5-15); BILIRUBIN,TOTAL 0.6 mg/dL (0.2-1.3); Calcium 8.1 mg/dL (8.4-10.2); Creatinine 1 4.38 mg/dL (0.52-1.04); Potassium 4.5 mmol/L (3.5-5.1); Total Protein 5.3 g/dL (6.3-8.2)
[2019-10-24 21:12] VITALS: O2SAT 99
[2019-10-24 22:07] VITALS: BP 179/69; PULSE 99
[2019-10-24] MEDS ORDERED: FEVERALL 650 MG PR ONE (22:11)
[2019-10-24] MEDS ORDERED: FEVERALL 650 MG ONE (22:20)
[2019-10-24 22:57] LABS: ANISOCYTOSIS 2+; Lymphocytes 2 % (24-44); Monocyte 1 % (0.0-12.0); Neutrophils 97 % (36.0-66.0); Platelet Estimate NORMAL (NORMAL); Total Cells Counted 100
[2019-10-24 22:58] LABS: Toxic Granulation RARE
[2019-10-24 22:59] LABS: Poikilocytosis 1+; Polychromasia RARE
--- NOTE | 2019-10-25 09:30 | XRAY ---
Indication: Fever and cough. Comparison: September 27, 2019. Portable chest again demonstrates small bibasilar effusions/atelectasis including fluid in the minor fissure, focal left mid lung pleural thickening/effusion, borderline cardiomegaly, and right dialysis catheter. No new cardiopulmonary abnormalities.
--- NOTE | 2019-10-25 09:33 | XRAY ---
Indication: Abdomen pain, emesis, and diarrhea. Dialysis patient. Multiple contiguous axial images obtained through the abdomen and pelvis without contrast as ordered. Comparison: September 30, 2018. Lung bases again demonstrates small bibasilar effusions/atelectasis left greater than right, overall less than before. Heart is now enlarged. There is mild diffuse anasarca. Noncontrasted stomach and bowel loops appear nonobstructed. Normal appendix. Again scattered colonic diverticulosis greatest in the sigmoid. Tiny pelvic fluid less than before. No walled off fluid collection or free air. New Weiss catheter in situ. Stable small left lobe hepatic cyst and cholecystectomy. Remaining liver, pancreas, spleen, general glands, kidneys, ureters, bladder, and uterus appear unremarkable for noncontrast exam. There remains extensive scattered vascular calcifications without AAA. Osseous structures again demonstrates osteopenia and mild degenerative changes throughout the spine. Enlarging right inguinal lymph nodes, largest 1.6 x 2.1 cm. Impression: 1. Cardiomegaly, bibasilar effusions, and anasarca favoring cardiac decompensation versus fluid overload. Tiny pelvic free fluid may be related. 2. New Weiss catheter with stable colonic diverticulosis, hepatic cyst, extensive arteriosclerotic calcifications, and chronic bony findings.
== END 2019-10-24 22:59 | disposition short-term general hospital (02) ==
LOC: ED 19:17
DX: I50.9 Heart failure, unspecified (principal); N17.9 Acute kidney failure, unspecified; N18.9 Chronic kidney disease, unspecified; R74.8 Abnormal levels of other serum enzymes; L03.90 Cellulitis, unspecified; D72.829 Elevated white blood cell count, unspecified; E11.9 Type 2 diabetes mellitus without complications; E03.9 Hypothyroidism, unspecified; I25.10 Atherosclerotic heart disease of native coronary artery without angina pectoris; G62.9 Polyneuropathy, unspecified; J44.9 Chronic obstructive pulmonary disease, unspecified; Z79.01 Long term (current) use of anticoagulants; Z79.899 Other long term (current) drug therapy; Z99.2 Dependence on renal dialysis
CPT/HCPCS: 36415; 51702; 71045; 74176; 80053; 81001; 83605; 83880; 84484; 85025; 85610; 86308; 87077; 87086; 87186; 87631; 87651; 93005; 93041; 94760; 99285; 99291; A9270-GY